=== PATIENT | male | born 1980 | race African-American/Black ===

== ENCOUNTER 2017-05-05 14:23 | Emergency (ER) | payer MEDICARE, MEDICAID ==
[2017-05-05] MEDS ORDERED: ONDANSETRON 4 MG TAB.RAPDIS SL ONE (14:46)
--- NOTE | 2017-05-05 14:46 | ER Document Report ---
ED Medical Screen (RME) - General Chief Complaint: Abdominal Pain Stated Complaint: ABDOMINAL PAIN Time Seen by Provider: 05/05/17 14:36 Mode of Arrival: Ambulatory Information source: Patient TRAVEL OUTSIDE OF THE [place] IN LAST 30 DAYS: No - HPI Patient complains to provider of: Abdominal pain with nausea and vomiting Onset: Yesterday Notes: 05/05/17 14:46 Patient is a 36-year-old male with a history of end-stage renal disease on dialysis since - Related Data Allergies/Adverse Reactions: No Known Allergies Allergy (Verified 05/05/17 14:33) Past Medical History - Past Medical History Cardiac Medical History: Reports: Hx Congestive Heart Failure Renal/ Medical History: Reports: Hx End Stage Renal Disease. Denies: Hx Peritoneal Dialysis Past Surgical History: Reports: Hx Cardiac Surgery - pacemaker, Hx Vascular Surgery - fistula Physical Exam - Vital signs Vitals: Temp Pulse Resp BP Pulse Ox 98.0 F 77 18 119/92 H 95 05/05/17 14:29 05/05/17 14:29 05/05/17 14:29 05/05/17 14:29 05/05/17 14:29 Course - Vital Signs Vital signs: Temp Pulse Resp BP Pulse Ox 98.0 F 77 18 119/92 H 95 05/05/17 14:29 05/05/17 14:29 05/05/17 14:29 05/05/17 14:29 05/05/17 14:29
[2017-05-05 15:29] LABS: ABSOLUTE BASOPHILS # (AUTO) 0.1 10^3/uL (0.0-0.2); ABSOLUTE EOSINOPHILS # (AUTO) 0.4 10^3/uL (0.0-0.6); ABSOLUTE LYMPHOCYTES (AUTO) 1.5 10^3/uL (0.5-4.7); ABSOLUTE NEUT (AUTO) 6.5 10^3/uL (1.7-8.2); BASOPHILS % (AUTO) 1.5 % (0-2); EOSINOPHILS % (AUTO) 4.4 % (0-6); HEMATOCRIT 36.6 % (37.9-51.0); HEMOGLOBIN 12.3 g/dL (13.5-17.0); HGB HCT DIFFERENCE 0.3; LYMPHOCYTES % (AUTO) 15.8 % (13-45); MEAN CORPUSCULAR HEMOGLOBIN 32.9 pg (27.0-33.4); MEAN CORPUSCULAR HGB CONC 33.7 g/dL (32.0-36.0); MEAN CORPUSCULAR VOLUME 98 fl (80-97); MONOCYTES % (AUTO) 10.2 % (3-13); RED BLOOD COUNT 3.75 10^6/uL (4.35-5.55); RED CELL DISTRIBUTION WIDTH 15.5 % (11.5-14.0); SEGMENTED NEUTROPHILS % (AUTO) 68.1 % (42-78); WHITE BLOOD COUNT 9.6 10^3/uL (4.0-10.5)
[2017-05-05 15:49] LABS: ALANINE AMINOTRANSFERASE 24 U/L (21-72); ALBUMIN 4.9 g/dL (3.5-5.0); ALKALINE PHOSPHATASE 72 U/L (38-126); ASPARTATE AMINO TRANSFERASE 21 U/L (17-59); BILIRUBIN,DIRECT 1.9 mg/dL (0.0-0.4); BILIRUBIN,TOTAL 1.9 mg/dL (0.2-1.3); BLOOD UREA NITROGEN 75 mg/dL (7-20); CALCIUM 8.6 mg/dL (8.4-10.2); CARBON DIOXIDE 27 mmol/L (22-30); CHLORIDE 91 mmol/L (98-107); CREATININE RESULT 12.52 mg/dL (0.52-1.25); GLUCOSE 60 mg/dL (75-110); LIPASE 93.8 U/L (23-300); POTASSIUM 5.3 mmol/L (3.6-5.0); TOTAL PROTEIN 8.7 g/dL (6.3-8.2)
[2017-05-05 15:57] LABS: SODIUM 141.1 mmol/L (137-145)
[2017-05-05 15:58] LABS: ANION GAP 23 (5-19)
[2017-05-05] MEDS ORDERED: PROMETHAZINE HCL 25 MG SUPP (4 SUPP/ER DISP) PR ONE (16:52)
--- NOTE | 2017-05-05 16:52 | ER Document Report ---
ED General - General Chief Complaint: Abdominal Pain Stated Complaint: ABDOMINAL PAIN Time Seen by Provider: 05/05/17 14:36 Mode of Arrival: Ambulatory TRAVEL OUTSIDE OF THE [place] IN LAST 30 DAYS: No - Related Data Allergies/Adverse Reactions: No Known Allergies Allergy (Verified 05/05/17 14:33) Past Medical History - General Information source: Patient - Social History Smoking Status: Never Smoker Chew tobacco use (# tins/day): No Frequency of alcohol use: None Drug Abuse: None Family History: Reviewed & Not Pertinent - Past Medical History Cardiac Medical History: Reports: Hx Congestive Heart Failure Endocrine Medical History: Reports: Hx Diabetes Mellitus Type 1 Renal/ Medical History: Reports: Hx End Stage Renal Disease. Denies: Hx Peritoneal Dialysis Past Surgical History: Reports: Hx Cardiac Surgery - pacemaker, Hx Vascular Surgery - fistula Physical Exam - Vital signs Vitals: Temp Pulse Resp BP Pulse Ox 98.0 F 77 18 119/92 H 95 05/05/17 14:29 05/05/17 14:29 05/05/17 14:29 05/05/17 14:29 05/05/17 14:29 Course - Vital Signs Vital signs: Temp Pulse Resp BP Pulse Ox 98.0 F 77 18 119/92 H 95 05/05/17 14:29 05/05/17 14:29 05/05/17 14:29 05/05/17 14:29 05/05/17 14:29 - Laboratory Result Diagrams: 05/05/17 15:10 05/05/17 15:10 Laboratory results interpreted by me: 05/05/17 05/05/17 15:10 15:10 RBC 3.75 L Hgb 12.3 L Hct 36.6 L MCV 98 H RDW 15.5 H Potassium 5.3 H Chloride 91 L Anion Gap 23 H BUN 75 H Creatinine 12.52 H Est GFR ( Amer) 6 L Est GFR (Non-Af Amer) 5 L Glucose 60 L Total Bilirubin 1.9 H Direct Bilirubin 1.9 H Total Protein 8.7 H Discharge - Discharge Clinical Impression: Nausea & vomiting Condition: Good Disposition: HOME, SELF-CARE Instructions: Vomiting ([facility]) Additional Instructions: Please continue to stay well hydrated. Take medication as prescribed. Return to the ER if you develop fevers or worsening of symptoms. Prescriptions: Promethazine HCl [Phenergan 25 mg Tablet] 1 - 2 tab PO Q6H PRN #20 tablet PRN Reason:
[2017-05-05 17:15] VITALS: BP 140/95
== END 2017-05-05 17:14 | disposition home or self-care (01) ==
LOC: ER 14:23
DX: R11.2 Nausea with vomiting, unspecified (principal); R10.9 Unspecified abdominal pain
CPT/HCPCS: 99284; 36415; 83690; 85025; 80053; A9270 ×2; J3490; S0119

== ENCOUNTER 2017-09-14 22:48 | Emergency (ER) | payer MEDICARE, MEDICAID ==
[2017-09-15] MEDS ORDERED: HYDROCODONE/ACETAMINOPHEN 5-325 MG TABLET PO ONE (00:17)
[2017-09-15] MEDS ORDERED: PROMETHAZINE HCL 25 MG TABLET PO ONE (00:17)
--- NOTE | 2017-09-15 00:20 | ER Document Report ---
ED General - General Chief Complaint: Flu Symptoms Stated Complaint: FLU LIKE SYMPTOMS Time Seen by Provider: 09/15/17 00:04 Notes: Patient is a 36-year-old male that comes emergency department for chief complaint of pain across the side of his ribs on both sides, occasional cough, some congestion, he also states that he is intermittently getting lightheaded. He reports chills and sweats today. He states he was standing in the shower this morning when he had lightheadedness and a discomfort in his chest which passed after a short time. Past medical history of end-stage renal disease, had dialysis yesterday, type 1 diabetes, hypertension. TRAVEL OUTSIDE OF THE [place] IN LAST 30 DAYS: No - Related Data Allergies/Adverse Reactions: No Known Allergies Allergy (Verified 05/05/17 14:33) Past Medical History - General Information source: Patient - Social History Smoking Status: Never Smoker Frequency of alcohol use: None Drug Abuse: None Lives with: Family Family History: Reviewed & Not Pertinent - Past Medical History Cardiac Medical History: Reports: Hx Congestive Heart Failure Endocrine Medical History: Reports: Hx Diabetes Mellitus Type 1 Renal/ Medical History: Reports: Hx End Stage Renal Disease. Denies: Hx Peritoneal Dialysis Past Surgical History: Reports: Hx Cardiac Surgery - pacemaker, Hx Vascular Surgery - fistula Review of Systems - Review of Systems Constitutional: See HPI EENT: See HPI Cardiovascular: See HPI Respiratory: See HPI Gastrointestinal: No symptoms reported Genitourinary: No symptoms reported Male Genitourinary: No symptoms reported Musculoskeletal: See HPI Skin: No symptoms reported Hematologic/Lymphatic: No symptoms reported Neurological/Psychological: No symptoms reported Physical Exam - Vital signs Vitals: Temp Pulse Resp BP Pulse Ox 97.7 F 85 20 159/94 H 96 09/14/17 23:10 09/14/17 23:10 09/14/17 23:10 09/14/17 23:10 09/14/17 23:10 Interpretation: Normal - General General appearance: Alert, Other - Patient restless, coughing, uncomfortable - HEENT Head: Normocephalic, Atraumatic Eyes: Normal Pupils: PERRL - Respiratory Respiratory status: No respiratory distress. No: Labored, Tachypnea Chest status: Tender - Tender over anterior chest wall bilaterally, no crepitus , no erythema, no induration or fluctuance Breath sounds: Normal, Nonproductive cough. No: Decreased air movement, Wheezing Chest palpation: Normal - Cardiovascular Rhythm: Regular. No: Tachycardia Heart sounds: Normal auscultation, S1 appreciated, S2 appreciated Murmur: No - Abdominal Inspection: Normal Distension: No distension Bowel sounds: Normal Tenderness: Nontender Organomegaly: No organomegaly - Back Back: Normal, Nontender. No: Tender - Extremities General upper extremity: Normal inspection, Nontender, Normal color, Normal ROM , Normal temperature. No: Edema General lower extremity: Normal inspection, Nontender, Normal color, Normal ROM , Normal temperature, Normal weight bearing. 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 Chemistry is consistent with his chronic kidney disease and essentially unchanged from prior although he does have a lot of uremia. On reexamination after medications patient asymptomatic and well-appearing. Chest x-ray unremarkable, no pneumonia , no vascular congestion. EKG with no significant change from prior. Troponin is negative despite his chest pain symptoms in the shower happening about 10 hours ago. This was short and nonspecific. Now his only complaint is pain over his chest wall, he does have reproducible pain over his chest wall bilaterally, coughing, congestion, he most likely has a virus. He states he is coughing and cannot sleep, he is provided medications for this, discussed follow -up and return precautions in detail, patient and significant other state understanding and agreement. - Vital Signs Vital signs: Temp Pulse Resp BP Pulse Ox 97.6 F 82 19 141/92 H 96 09/15/17 02:10 09/15/17 02:10 09/15/17 02:10 09/15/17 02:10 09/15/17 02:10 - Laboratory Result Diagrams: 09/15/17 00:25 09/15/17 00:25 Laboratory results interpreted by me: 09/15/17 09/15/17 00:25 00:25 RBC 3.93 L Hgb 12.5 L Hct 37.4 L RDW 14.5 H Eosinophils % 6.1 H Basophils % 2.1 H Sodium 136.9 L Potassium 5.3 H Chloride 92 L Anion Gap 23 H BUN 106 H Creatinine 17.60 H Est GFR ( Amer) 4 L Est GFR (Non-Af Amer) 3 L Glucose 209 H Calcium 7.6 L Total Bilirubin 1.5 H Direct Bilirubin 1.5 H Total Protein 9.0 H Discharge - Discharge Clinical Impression: Body aches, Chest wall pain Condition: Stable Disposition: HOME, SELF-CARE Additional Instructions: No concerning abnormalities were seen on your workup tonight. Based on your variety of symptoms I suspect this is viral, this should pass with time. Rest, take provided medication only if needed, take Phenergan if needed for nausea and to help you rest. Follow-up closely with your provider. Return if you worsen including difficulty breathing, vomiting, or any other concerning symptoms. Prescriptions: Hydrocodone/Acetaminophen [[place] 5-325 mg Tablet] 1 - 2 tab PO ASDIR #6 tablet Promethazine HCl [Phenergan 25 mg Tablet] 1 - 2 tab PO Q6H PRN #15 tablet PRN Reason:
[2017-09-15 00:52] LABS: ABSOLUTE BASOPHILS # (AUTO) 0.2 10^3/uL (0.0-0.2); ABSOLUTE EOSINOPHILS # (AUTO) 0.5 10^3/uL (0.0-0.6); ABSOLUTE LYMPHOCYTES (AUTO) 1.5 10^3/uL (0.5-4.7); ABSOLUTE NEUT (AUTO) 5.2 10^3/uL (1.7-8.2); BASOPHILS % (AUTO) 2.1 % (0-2); EOSINOPHILS % (AUTO) 6.1 % (0-6); HEMATOCRIT 37.4 % (37.9-51.0); HEMOGLOBIN 12.5 g/dL (13.5-17.0); LYMPHOCYTES % (AUTO) 17.7 % (13-45); MEAN CORPUSCULAR HEMOGLOBIN 31.8 pg (27.0-33.4); MEAN CORPUSCULAR HGB CONC 33.5 g/dL (32.0-36.0); MEAN CORPUSCULAR VOLUME 95 fl (80-97); MONOCYTES % (AUTO) 11.6 % (3-13); PLATELET COUNT 301 10^3/uL (150-450); RED BLOOD COUNT 3.93 10^6/uL (4.35-5.55); RED CELL DISTRIBUTION WIDTH 14.5 % (11.5-14.0); SEGMENTED NEUTROPHILS % (AUTO) 62.5 % (42-78); TOTAL CELLS COUNTED % (AUTO) 100 %; WHITE BLOOD COUNT 8.3 10^3/uL (4.0-10.5)
[2017-09-15 00:55] LABS: ALANINE AMINOTRANSFERASE 22 U/L (21-72); ALKALINE PHOSPHATASE 65 U/L (38-126); ASPARTATE AMINO TRANSFERASE 39 U/L (17-59); BILIRUBIN,DIRECT 1.5 mg/dL (0.0-0.4); BILIRUBIN,TOTAL 1.5 mg/dL (0.2-1.3); BLOOD UREA NITROGEN 106 mg/dL (7-20); CALCIUM 7.6 mg/dL (8.4-10.2); GLUCOSE 209 mg/dL (75-110)
--- NOTE | 2017-09-15 01:10 | RADIOLOGY REPORT (SQ) ---
EXAM DESCRIPTION: CHEST PA/LAT CLINICAL HISTORY: 36 years, Male, cough, pain over both sides of chest COMPARISON: 04/07/2016 NUMBER OF VIEWS: 2 LIMITATIONS: None. FINDINGS: Normal lung volumes, clear parenchyma, mild cardiac enlargement, left cardiac stimulation device and leads. IMPRESSION: No acute cardiopulmonary findings. Stable mild cardiac enlargement.
[2017-09-15 01:11] LABS: A TYPE INFLUENZA AG NEGATIVE (NEGATIVE); B INFLUENZA AG NEGATIVE (NEGATIVE)
[2017-09-15 01:26] LABS: CARBON DIOXIDE 22 mmol/L (22-30); CHLORIDE 92 mmol/L (98-107); POTASSIUM 5.3 mmol/L (3.6-5.0); SODIUM 136.9 mmol/L (137-145)
[2017-09-15 01:27] LABS: ANION GAP 23 (5-19)
[2017-09-15] MEDS ORDERED: HYDROCODONE/ACETAMINOPHEN 5-325 MG (6 TAB/ER DISP) PO PRN (01:59)
[2017-09-15 02:13] VITALS: BP 141/92
--- NOTE | 2017-09-15 08:51 | EKG REPORT ---
SEVERITY:- ABNORMAL ECG - SINUS RHYTHM PROBABLE LEFT ATRIAL ABNORMALITY NONSPECIFIC INTRAVENTRICULAR CONDUCTION DELAY : Confirmed by: Brandy Zaldivar 15-Sep-2017 08:50:31
== END 2017-09-15 02:14 | disposition home or self-care (01) ==
LOC: ER 22:48
DX: M79.1 Myalgia (principal); R07.89 Other chest pain; R05 Cough; I50.9 Heart failure, unspecified; E10.22 Type 1 diabetes mellitus with diabetic chronic kidney disease; N18.6 End stage renal disease; Z95.0 Presence of cardiac pacemaker
CPT/HCPCS: 93005; 99284; 36415; 85025; 80053; 84484; 87804; 71046; 93010; A9270 ×3

== ENCOUNTER 2017-10-06 15:26 | Emergency (ER) | payer MEDICARE, MEDICAID ==
[2017-10-06] MEDS ORDERED: HYDROCODONE/ACETAMINOPHEN 5-325 MG TABLET PO ONE (17:40)
[2017-10-06] MEDS ORDERED: ONDANSETRON 4 MG TAB.RAPDIS PO ONE (17:40)
--- NOTE | 2017-10-06 17:41 | ER Document Report ---
ED Medical Screen (RME) - General Chief Complaint: Flank Pain Stated Complaint: NAUSEA, VOMITING Time Seen by Provider: 10/06/17 17:39 Mode of Arrival: Ambulatory Information source: Patient Notes: Patient presents complaining of right flank pain for the past 3 days. Patient reports hematuria with nausea and vomiting. Patient denies any fever. Patient denies any history kidney stones. hx: CHF, insulin-dependent diabetes, hypertension, in home hemodialysis 4 times a week I have greeted and performed a rapid initial assessment of this patient. A comprehensive ED assessment and evaluation of the patient, analysis of test results and completion of the medical decision making process will be conducted by additional ED providers. TRAVEL OUTSIDE OF THE [place] IN LAST 30 DAYS: No - Related Data Allergies/Adverse Reactions: No Known Allergies Allergy (Verified 10/06/17 15:53) Past Medical History - Past Medical History Cardiac Medical History: Reports: Hx Congestive Heart Failure Endocrine Medical History: Reports: Hx Diabetes Mellitus Type 1 Renal/ Medical History: Reports: Hx End Stage Renal Disease. Denies: Hx Peritoneal Dialysis Past Surgical History: Reports: Hx Cardiac Surgery - pacemaker, Hx Vascular Surgery - fistula Physical Exam - Vital signs Vitals: Temp Pulse Resp BP Pulse Ox 98.2 F 97 16 175/100 H 96 10/06/17 15:55 10/06/17 15:55 10/06/17 15:55 10/06/17 15:55 10/06/17 15:55 - Back Back: CVA tenderness - Right Course - Vital Signs Vital signs: Temp Pulse Resp BP Pulse Ox 98.2 F 97 16 175/100 H 96 10/06/17 15:55 10/06/17 15:55 10/06/17 15:55 10/06/17 15:55 10/06/17 15:55
[2017-10-06 19:18] LABS: ABSOLUTE BASOPHILS # (AUTO) 0.1 10^3/uL (0.0-0.2); ABSOLUTE EOSINOPHILS # (AUTO) 0.4 10^3/uL (0.0-0.6); ABSOLUTE LYMPHOCYTES (AUTO) 1.9 10^3/uL (0.5-4.7); ABSOLUTE MONOCYTES (AUTO) 0.8 10^3/uL (0.1-1.4); ABSOLUTE NEUT (AUTO) 6.4 10^3/uL (1.7-8.2); BASOPHILS % (AUTO) 1.2 % (0-2); EOSINOPHILS % (AUTO) 4.3 % (0-6); HEMATOCRIT 33.9 % (37.9-51.0); HEMOGLOBIN 11.6 g/dL (13.5-17.0); LYMPHOCYTES % (AUTO) 19.3 % (13-45); MEAN CORPUSCULAR HEMOGLOBIN 32.2 pg (27.0-33.4); MEAN CORPUSCULAR HGB CONC 34.2 g/dL (32.0-36.0); MEAN CORPUSCULAR VOLUME 94 fl (80-97); MONOCYTES % (AUTO) 8.2 % (3-13); PLATELET COUNT 286 10^3/uL (150-450); RED CELL DISTRIBUTION WIDTH 14.5 % (11.5-14.0); TOTAL CELLS COUNTED % (AUTO) 100 %; WHITE BLOOD COUNT 9.6 10^3/uL (4.0-10.5)
--- NOTE | 2017-10-06 19:23 | RADIOLOGY REPORT (SQ) ---
EXAM DESCRIPTION: CT LTD RENAL STONE PROTOCOL ON COMPLETED DATE/TIME: 10/06/2017 7:08 pm REASON FOR STUDY: r flank/side pain COMPARISON: None. TECHNIQUE: CT scan of the abdomen and pelvis performed without intravenous or oral contrast. Images reviewed with lung, soft tissue, and bone windows. Reconstructed coronal and sagittal MPR images revi ewed. All images stored on PACS. All CT scanners at this facility use dose modulation, iterative reconstruction, and/or weight based d osing when appropriate to reduce radiation dose to as low as reasonably achievable (ALARA). [facility]: Dose Right [facility]: CareDose [facility]: Dose Right [facility]: Teradose 4D [facility]: [employer] RADIATION DOSE: CT Rad equipment meets quality standard of care and radiation dose reduction techniq ues were employed. CTDIvol: 17.2 mGy. DLP: 1011 mGy-cm.mGy. LIMITATIONS: None. FINDINGS: LOWER CHEST: No significant findings. No nodules or infiltrates. NON-CONTRASTED LIVER, SPLEEN, ADRENALS: Evaluation limited by lack of IV contrast. No identified sign ificant masses. PANCREAS: No masses. No peripancreatic inflammatory changes. GALLBLADDER: No identified stones by CT criteria. No inflammatory changes to suggest cholecystitis. RIGHT KIDNEY AND URETER: No suspicious masses. Assessment limited by lack of IV contrast. No signif icant calcifications. No hydronephrosis or hydroureter. LEFT KIDNEY AND URETER: No suspicious masses. Assessment limited by lack of IV contrast. No signifi cant calcifications. No hydronephrosis or hydroureter. AORTA AND RETROPERITONEUM: No aneurysm. No retroperitoneal masses or adenopathy. BOWEL AND PERITONEAL CAVITY: No obvious masses or inflammatory changes. No free fluid. APPENDIX: Normal. PELVIS, BLADDER, AND ABDOMINAL WALL:No abnormal masses. No free fluid. Bladder normal. BONES: No significant findings. OTHER: No other significant finding. IMPRESSION: NO SIGNIFICANT OR ACUTE PROCESS IDENTIFIED ON THIS NONCONTRAST CT OF THE ABDOMEN AND PEL VIS. NO URINARY TRACT STONES OR HYDRONEPHROSIS. COMMENT: Quality ID # [id number]: Final reports with documentation of one or more dose reduction techniques (e.g., Automated exposure control, adjustment of the mA and/or kV according to patient size, use of iterative reconstruction technique) TECHNICAL DOCUMENTATION: JOB ID: [id number] [email or web address]- All Rights Reserved
[2017-10-06 19:38] LABS: ALANINE AMINOTRANSFERASE 31 U/L (21-72); ALBUMIN 4.7 g/dL (3.5-5.0); ALKALINE PHOSPHATASE 56 U/L (38-126); ANION GAP 18 (5-19); ASPARTATE AMINO TRANSFERASE 26 U/L (17-59); BILIRUBIN,DIRECT 1.4 mg/dL (0.0-0.4); BILIRUBIN,TOTAL 1.4 mg/dL (0.2-1.3); BLOOD UREA NITROGEN 64 mg/dL (7-20); CARBON DIOXIDE 31 mmol/L (22-30); CHLORIDE 91 mmol/L (98-107); GLUCOSE 140 mg/dL (75-110); LIPASE 107.6 U/L (23-300); POTASSIUM 3.8 mmol/L (3.6-5.0); TOTAL PROTEIN 8.4 g/dL (6.3-8.2)
[2017-10-06 19:40] LABS: AMORPHOUS SEDIMENT,URINE TRACE /HPF; APPEARANCE,URINE CLOUDY; BILIRUBIN,URINE NEGATIVE (NEGATIVE); COLOR,URINE YELLOW; GLUCOSE, URINE 50 mg/dL (NEGATIVE); KETONES,URINE NEGATIVE (NEGATIVE); LEUKOCYTE ESTERASE,URINE SMALL (NEGATIVE); NITRITE,URINE NEGATIVE (NEGATIVE); PROTEIN,URINE >=500 mg/dL (NEGATIVE); UROBILINOGEN,URINE NEGATIVE mg/dL (<2.0)
[2017-10-06] MEDS ORDERED: LIDOCAINE 1% INJ-PF (10 MG/ML) 30 ML SDV INFIL ONE (22:16)
[2017-10-06] MEDS ORDERED: CEFTRIAXONE INJ 500 MG VIAL IM ONE (22:16)
[2017-10-06] MEDS ORDERED: ONDANSETRON ODT 4 MG TAB (6 TAB/ER DISP) PO PRN (22:18)
--- NOTE | 2017-10-06 22:21 | ER Document Report ---
ED General - General Chief Complaint: Flank Pain Stated Complaint: NAUSEA, VOMITING Time Seen by Provider: 10/06/17 17:39 Mode of Arrival: Ambulatory Notes: Patient is a 36-year-old male who presents with complaint of some pain in his right flank some dysuria. Patient has a history of end-stage renal disease and does home dialysis. No fevers. Some nausea. some vomiting. No diarrhea. No other complaints at this time. TRAVEL OUTSIDE OF THE [place] IN LAST 30 DAYS: No - Related Data Allergies/Adverse Reactions: No Known Allergies Allergy (Verified 10/06/17 15:53) Past Medical History - General Information source: Patient - Social History Smoking Status: Never Smoker Chew tobacco use (# tins/day): No Frequency of alcohol use: Rare Drug Abuse: None Family History: Reviewed & Not Pertinent Patient has suicidal ideation: No Patient has homicidal ideation: No - Past Medical History Cardiac Medical History: Reports: Hx Congestive Heart Failure Endocrine Medical History: Reports: Hx Diabetes Mellitus Type 1 Renal/ Medical History: Reports: Hx End Stage Renal Disease, Hx Peritoneal Dialysis Past Surgical History: Reports: Hx Cardiac Surgery - pacemaker, Hx Vascular Surgery - fistula Review of Systems - Review of Systems Notes: My Normal Review Basic REVIEW OF SYSTEMS: CONSTITUTIONAL : Denies fever, chills, or sweats. Denies recent illness. RESPIRATORY: Denies cough, cold, or chest congestion. Denies shortness of breath, difficulty breathing, or wheezing. GASTROINTESTINAL: mild pain on the right side rating from back. GENITOURINARY: Right-sided flank and back pain. MUSCULOSKELETAL: Denies neck or back pain or joint pain or swelling. SKIN: Denies rash or skin lesions. NEUROLOGICAL: Denies altered mental status or loss of consciousness. Denies headache. Denies weakness or paralysis or loss of use of either side. Denies problems with gait or speech. Denies sensory or motor loss. ALL OTHER SYSTEMS REVIEWED AND NEGATIVE. Physical Exam - Vital signs Vitals: Temp Pulse Resp BP Pulse Ox 98.2 F 97 16 175/100 H 96 10/06/17 15:55 10/06/17 15:55 10/06/17 15:55 10/06/17 15:55 10/06/17 15:55 - Notes Notes: General Appearance: Well nourished, alert, cooperative, no acute distress, mild obvious discomfort. Vitals: reviewed, See vital signs table. Head: no swelling or tenderness to the head Eyes: PERRL, EOMI, Conjuctiva clear Mouth: No decreasd moisture Lungs: No wheezing, No rales, No rhonci, No accessory muscle use, good air exchange bilaterally. Heart: Normal rate, Regular rythm, No murmur, no rub Back: Some tenderness palpation over the lower back and right flank. Abdomen: Normal BS, soft, No rigidity, No abdominal tenderness, No guarding, no rebound, Extremities: strength 5/5 in all extremities, good pulses in all extremities, no swelling or tenderness in the extremities, no edema. Skin: warm, dry, appropriate color, no rash Neuro: speech clear, oriented x 3, normal affect, responds appropriately to questions. Course - Re-evaluation Re-evalutation: 10/07/17 07:20 Skin was ordered in triage. Is negative for kidney stone. Patient does have improved for urinary tract infection. I will place him on antibiotic. Encourage him return to ER immediately if he has worsening pain, fevers, intractable vomiting, or if he feels unwell. Patient agrees with plan will be discharged home. Dictation of this chart was performed using voice recognition software; therefore, there may be some unintended grammatical errors. - Vital Signs Vital signs: Temp Pulse Resp BP Pulse Ox 98.7 F 97 18 166/83 H 98 10/06/17 23:17 10/06/17 15:55 10/06/17 23:17 10/06/17 22:31 10/06/17 23:09 - Laboratory Result Diagrams: 10/06/17 18:59 10/06/17 18:59 Laboratory results interpreted by me: 10/06/17 10/06/17 10/06/17 18:59 18:59 18:59 RBC 3.60 L Hgb 11.6 L Hct 33.9 L RDW 14.5 H Chloride 91 L Carbon Dioxide 31 H BUN 64 H Creatinine 11.28 H Est GFR ( Amer) 6 L Est GFR (Non-Af Amer) 5 L Glucose 140 H Total Bilirubin 1.4 H Direct Bilirubin 1.4 H Total Protein 8.4 H Urine Protein >=500 H Urine Glucose (UA) 50 H Urine Blood MODERATE H Ur Leukocyte Esterase SMALL H Discharge - Discharge Clinical Impression: End stage renal disease UTI (urinary tract infection) Qualifiers: Urinary tract infection type: site unspecified Hematuria presence: with hematuria Qualified Code(s): N39.0 - Urinary tract infection, site not specified Condition: Good Disposition: HOME-SNF (ED ONLY) Additional Instructions: Please take your antibiotic after dialysis. Please return to the ER immediately if you have fevers, worsening pain, recurrent vomiting, or feel unwell. Please follow up with your doctor in 2 days for reevaluation. Prescriptions: Cephalexin Monohydrate [Keflex 500 mg Capsule] 500 mg PO DAILY #7 capsule
[2017-10-06 23:01] VITALS: BP 166/83
== END 2017-10-06 23:44 ==
LOC: ER 15:26
DX: N18.6 End stage renal disease (principal); N39.0 Urinary tract infection, site not specified; R10.9 Unspecified abdominal pain; R11.2 Nausea with vomiting, unspecified; R30.0 Dysuria
CPT/HCPCS: 99284; 96372; 36415; 87086; 83690; 85025; 80053; 81001; 76380; A9270 ×3; J3490; J0696; S0119

== ENCOUNTER 2017-10-14 18:50 | Emergency (ER) | payer MEDICARE, MEDICAID ==
--- NOTE | 2017-10-14 19:39 | ER Document Report ---
ED General - General Mode of Arrival: Ambulatory Information source: Patient TRAVEL OUTSIDE OF THE [place] IN LAST 30 DAYS: No - General Chief Complaint: High Blood Pressure Stated Complaint: KIDNEY INFECTION Time Seen by Provider: 10/14/17 19:25 Notes: Patient presents with concern of high blood pressure. Patient's blood pressure was in the 200s over 100s today. Per further discussion he states his blood pressure has been running high for over last 2 weeks has been waxing and waning. He has not had any recent fevers or illnesses although he was treated for urinary tract infection and recently finished his antibiotics. He denies any symptoms of illness at this time. He denies any chest pain or shortness of breath. In triage his blood pressure systolic is noted to be in the 160s and he is asymptomatic. I had lengthy discussion with him that he may need medicine reconciliation as his blood pressure has been elevated over the last 2 weeks although he has doubled up on his Coreg daily per his sensitized paper tester team. I discussed that he may need further medicine reconciliation to better control his blood pressure and also discussed possibly using clonidine as abortive antihypertensive medication. He states that he use to use clonidine in the past but was taken off of it some time ago as it was bottoming his blood pressure when he did his home dialysis. I do not feel in need to prescribe any medications or bring patient in for hypertensive emergency as his blood pressure has normalized to an acceptable range w/o intervention and he has been having blood pressure much higher than this at the clinic as he stated his systolic was in the 190s on his last visit. He was instructed to contact his sensitized paper tester team tomorrow regarding his emergency medicine visit and need for medicine reconciliation regarding better management of his blood pressure. He understands and agrees to plan. Of note he showed me a sore where he he cut himself over a week ago posterior aspect of his lower extremity. He is well appearing but is not granulated due to daily use of Neosporin. I discussed to thoroughly clean it once a day but keep it dry so it can granulate and scab over. (ROMAN GUEVARA) - Related Data Allergies/Adverse Reactions: No Known Allergies Allergy (Verified 10/14/17 18:50) Past Medical History - General Information source: Patient - Social History Smoking Status: Never Smoker Chew tobacco use (# tins/day): No Frequency of alcohol use: None Drug Abuse: None Family History: Reviewed & Not Pertinent Patient has suicidal ideation: No Patient has homicidal ideation: No - Past Medical History Cardiac Medical History: Reports: Hx Congestive Heart Failure Endocrine Medical History: Reports: Hx Diabetes Mellitus Type 1 Renal/ Medical History: Reports: Hx End Stage Renal Disease, Hx Peritoneal Dialysis Past Surgical History: Reports: Hx Cardiac Surgery - pacemaker, Hx Vascular Surgery - fistula Review of Systems - Review of Systems Constitutional: See HPI EENT: No symptoms reported Cardiovascular: No symptoms reported Respiratory: No symptoms reported Gastrointestinal: No symptoms reported Genitourinary: No symptoms reported Male Genitourinary: No symptoms reported Musculoskeletal: No symptoms reported Skin: No symptoms reported Hematologic/Lymphatic: No symptoms reported Neurological/Psychological: No symptoms reported -: Yes All other systems reviewed and negative Physical Exam - Vital signs Vitals: Temp Pulse Resp BP Pulse Ox 98.1 F 84 16 167/91 H 96 10/14/17 18:53 10/14/17 18:53 10/14/17 18:53 10/14/17 18:53 10/14/17 18:53 - Notes Notes: GENERAL: Alert, interacts well. No acute distress. HEAD: Normocephalic, atraumatic. EYES: Pupils equal, round, and reactive to light. Extraocular movements intact. ENT: Oral mucosa moist, tongue midline. NECK: Full range of motion. Supple. Trachea midline. EXTREMITIES: Moves all 4 extremities spontaneously. NEUROLOGICAL: Alert and oriented x3. Normal speech. PSYCH: Normal affect, normal mood. SKIN: well healing wound on the right heel. (JANIYA EID) - Vital Signs Vital signs: Temp Pulse Resp BP Pulse Ox 97.9 F 79 18 189/98 H 100 10/14/17 19:50 10/14/17 19:50 10/14/17 19:50 10/14/17 19:50 10/14/17 19:50 Discharge - Discharge Clinical Impression: Encounter for wound re-check Hypertension Qualifiers: Hypertension type: unspecified Qualified Code(s): I10 - Essential (primary) hypertension Condition: Stable Disposition: HOME, SELF-CARE Additional Instructions: Please follow up with your sensitized paper tester and continue to take your medications as per discussion. If you have any new or worsening symptoms please return to the emergency department. Scribe Attestation: 10/16/17 03:43 I personally performed the services described documentation, reviewed and edited the documentation which was dictated to describe my presence, and it accurately records my words and actions. (ROMAN GUEVARA) Scribe Documentation - Scribe Written by Luis:: Luis Eason, 10/14/2017 19:47 acting as scribe for :: Eddy
[2017-10-14 19:51] VITALS: BP 189/98
== END 2017-10-14 19:51 | disposition home or self-care (01) ==
LOC: ER 18:50
DX: I12.0 Hypertensive chronic kidney disease with stage 5 chronic kidney disease or end stage renal disease (principal); S91.311A Laceration without foreign body, right foot, initial encounter; X58.XXXA Exposure to other specified factors, initial encounter; E10.22 Type 1 diabetes mellitus with diabetic chronic kidney disease; N18.6 End stage renal disease; Z99.2 Dependence on renal dialysis
CPT/HCPCS: 99283

== ENCOUNTER 2018-01-17 17:04 | Emergency (ER) | payer MEDICARE, MEDICAID ==
[2018-01-17] MEDS ORDERED: DIAZEPAM 5 MG TABLET PO ONE (17:21)
[2018-01-17] MEDS ORDERED: KETOROLAC TROMETHAMINE 60 MG/2 ML SDV IM ONE (17:21)
--- NOTE | 2018-01-17 17:23 | ER Document Report ---
ED Medical Screen (RME) - General Chief Complaint: Flank Pain Stated Complaint: BACK PAIN Time Seen by Provider: 01/17/18 17:16 Notes: RAPID MEDICAL EVALUATION DISCLOSURE I have seen this patient as part of a Rapid Medical Evaluation and, if applicable, placed any initially appropriate orders. The patient will be seen and fully evaluated, including a full history and physical exam, by a provider ( in Main ED or Fast Track) when a room becomes available. 37-year-old male PMH pyelonephritis here with complaints of right lower back pain (radiating down the buttock) ongoing for the past few days. The day before onset of symptoms, he was walking in the store and rounded a corner then felt "a pop in my back". The next day is when the symptoms started. He has not had any fevers chills nausea vomiting hematuria dysuria. He went to the urgent care and they sent him here due to concern for possible kidney stones. Patient has never had kidney stones in the past. Exam Exquisite TTP right paralumbar musculature No abdominal TTP TRAVEL OUTSIDE OF THE [place] IN LAST 30 DAYS: No - Related Data Allergies/Adverse Reactions: No Known Allergies Allergy (Verified 01/17/18 17:05) Past Medical History - Social History Chew tobacco use (# tins/day): No Frequency of alcohol use: None Drug Abuse: None - Past Medical History Cardiac Medical History: Reports: Hx Congestive Heart Failure Endocrine Medical History: Reports: Hx Diabetes Mellitus Type 1 Renal/ Medical History: Reports: Hx End Stage Renal Disease. Denies: Hx Peritoneal Dialysis Past Surgical History: Reports: Hx Cardiac Surgery - pacemaker, Hx Thyroid Surgery - Partial thyroidectomy, Hx Vascular Surgery - fistula Physical Exam - Vital signs Vitals: Temp Pulse Resp BP Pulse Ox 97.8 F 78 16 159/83 H 100 01/17/18 17:09 01/17/18 17:09 01/17/18 17:09 01/17/18 17:09 01/17/18 17:09 Course - Vital Signs Vital signs: Temp Pulse Resp BP Pulse Ox 97.8 F 78 16 159/83 H 100 01/17/18 17:09 01/17/18 17:09 01/17/18 17:09 01/17/18 17:09 01/17/18 17:09
[2018-01-17 18:34] LABS: ABSOLUTE BASOPHILS # (AUTO) 0.1 10^3/uL (0.0-0.2); ABSOLUTE EOSINOPHILS # (AUTO) 0.7 10^3/uL (0.0-0.6); ABSOLUTE LYMPHOCYTES (AUTO) 2.2 10^3/uL (0.5-4.7); ABSOLUTE MONOCYTES (AUTO) 0.7 10^3/uL (0.1-1.4); ABSOLUTE NEUT (AUTO) 5.1 10^3/uL (1.7-8.2); BASOPHILS % (AUTO) 1.5 % (0-2); EOSINOPHILS % (AUTO) 7.7 % (0-6); HEMATOCRIT 34.5 % (37.9-51.0); HEMOGLOBIN 11.7 g/dL (13.5-17.0); LYMPHOCYTES % (AUTO) 25.1 % (13-45); MEAN CORPUSCULAR HEMOGLOBIN 33.5 pg (27.0-33.4); MEAN CORPUSCULAR HGB CONC 33.9 g/dL (32.0-36.0); MEAN CORPUSCULAR VOLUME 99 fl (80-97); PLATELET COUNT 272 10^3/uL (150-450); RED BLOOD COUNT 3.49 10^6/uL (4.35-5.55); RED CELL DISTRIBUTION WIDTH 14.8 % (11.5-14.0); SEGMENTED NEUTROPHILS % (AUTO) 57.7 % (42-78); TOTAL CELLS COUNTED % (AUTO) 100 %; WHITE BLOOD COUNT 8.8 10^3/uL (4.0-10.5)
[2018-01-17 18:51] LABS: APPEARANCE,URINE CLOUDY; BILIRUBIN,URINE NEGATIVE (NEGATIVE); COLOR,URINE YELLOW; GLUCOSE, URINE 150 mg/dL (NEGATIVE); KETONES,URINE NEGATIVE (NEGATIVE); LEUKOCYTE ESTERASE,URINE TRACE (NEGATIVE); NITRITE,URINE NEGATIVE (NEGATIVE); PROTEIN,URINE >=500 mg/dL (NEGATIVE); URINE SPECIFIC GRAVITY 1.026; UROBILINOGEN,URINE NEGATIVE mg/dL (<2.0)
[2018-01-17 18:56] LABS: ALANINE AMINOTRANSFERASE 34 U/L (21-72); ALBUMIN 4.5 g/dL (3.5-5.0); ALKALINE PHOSPHATASE 69 U/L (38-126); ASPARTATE AMINO TRANSFERASE 35 U/L (17-59); BILIRUBIN,DIRECT 0.5 mg/dL (0.0-0.4); BILIRUBIN,TOTAL 0.5 mg/dL (0.2-1.3); BLOOD UREA NITROGEN 84 mg/dL (7-20); CALCIUM 8.7 mg/dL (8.4-10.2); GLUCOSE 114 mg/dL (75-110); LIPASE 176.4 U/L (23-300); POTASSIUM 4.7 mmol/L (3.6-5.0); TOTAL PROTEIN 7.9 g/dL (6.3-8.2)
[2018-01-17 19:02] LABS: CARBON DIOXIDE 27 mmol/L (22-30); CHLORIDE 96 mmol/L (98-107); SODIUM 143.8 mmol/L (137-145)
[2018-01-17 19:04] LABS: ANION GAP 21 (5-19)
--- NOTE | 2018-01-17 19:18 | RADIOLOGY REPORT (SQ) ---
EXAM DESCRIPTION: L SPINE WHOLE COMPLETED DATE/TIME: 01/17/2018 7:00 pm REASON FOR STUDY: R lower back pain, felt a pop COMPARISON: None. NUMBER OF VIEWS: Five views including obliques. TECHNIQUE: AP, lateral, oblique, and sacral radiographic images acquired of the lumbar spine. LIMITATIONS: None. FINDINGS: MINERALIZATION: Normal. SEGMENTATION: Normal. No transitional anatomy. ALIGNMENT: Normal. VERTEBRAE: Maintained height. No fracture or worrisome bone lesion. DISCS: Preserved height. No significant osteophytes or end plate irregularity. POSTERIOR ELEMENTS: Pedicles and facets are intact. No pars defect or posterior arch defects. HARDWARE: None in the spine. PARASPINAL SOFT TISSUES: Normal. PELVIS: Intact as visualized. No fractures or worrisome bone lesions. SI joints intact. OTHER: No other significant finding. IMPRESSION: NORMAL 5 VIEW LUMBAR SPINE. TECHNICAL DOCUMENTATION: JOB ID: [id number] [employer]- All Rights Reserved Reading location - IP/workstation name: [email or web address]
[2018-01-17] MEDS ORDERED: DIAZEPAM INJ 10 MG/2 ML DISP.SYRIN IV ONE (19:20)
[2018-01-17] MEDS ORDERED: KETOROLAC TROMETHAMINE INJ/PF 30 MG/1 ML SDV IV ONE (19:20)
--- NOTE | 2018-01-17 19:47 | ER Document Report ---
ED GI/ - General Chief Complaint: Flank Pain Stated Complaint: BACK PAIN Time Seen by Provider: 01/17/18 17:16 Mode of Arrival: Ambulatory Information source: Patient Notes: 37-year-old male presents with chief complaint of right flank pain. Patient reports that while he was out shopping on Friday he felt a pop in his right lower back. Patient reports that the flank pain started the next day. Patient denies any fever, chills, nausea, vomiting. Patient denies any hematuria or dysuria. Patient reports that he has taken tramadol and cyclobenzaprine at home without relief. Patient states that he tried to go to the urgent care today however they sent him here as he was concerned that he may have a kidney stone. Patient has no history of any kidney stones. Patient does have past medical history of pyelonephritis, CHF, type 1 diabetes and end-stage renal disease. TRAVEL OUTSIDE OF THE [place] IN LAST 30 DAYS: No - Related Data Allergies/Adverse Reactions: No Known Allergies Allergy (Verified 01/17/18 17:05) Past Medical History - General Information source: Patient - Social History Smoking Status: Never Smoker Chew tobacco use (# tins/day): No Frequency of alcohol use: None Drug Abuse: None Family History: Reviewed & Not Pertinent Patient has suicidal ideation: No Patient has homicidal ideation: No - Past Medical History Cardiac Medical History: Reports: Hx Congestive Heart Failure Endocrine Medical History: Reports: Hx Diabetes Mellitus Type 1 Renal/ Medical History: Reports: Hx End Stage Renal Disease. Denies: Hx Peritoneal Dialysis Past Surgical History: Reports: Hx Cardiac Surgery - pacemaker, Hx Thyroid Surgery - Partial thyroidectomy, Hx Vascular Surgery - fistula Review of Systems - Review of Systems Constitutional: No symptoms reported EENT: No symptoms reported Cardiovascular: No symptoms reported Respiratory: No symptoms reported Gastrointestinal: No symptoms reported Genitourinary: See HPI Male Genitourinary: No symptoms reported Musculoskeletal: No symptoms reported Skin: No symptoms reported Hematologic/Lymphatic: No symptoms reported Neurological/Psychological: No symptoms reported Physical Exam - Vital signs Vitals: Temp Pulse Resp BP Pulse Ox 97.8 F 78 16 159/83 H 100 01/17/18 17:09 01/17/18 17:09 01/17/18 17:09 01/17/18 17:09 01/17/18 17:09 - Notes Notes: PHYSICAL EXAMINATION: GENERAL: Well-appearing, well-nourished, sitting on the side of the stretcher rocking back and forth c/o pain. HEAD: Atraumatic, normocephalic. EYES: Pupils equal round and reactive to light, extraocular movements intact, sclera anicteric, conjunctiva are normal. ENT: Nares patent, oropharynx clear without exudates. Moist mucous membranes. NECK: Normal range of motion, supple without lymphadenopathy LUNGS: Breath sounds clear to auscultation bilaterally and equal. No wheezes rales or rhonchi. HEART: Regular rate and rhythm without murmurs ABDOMEN: Soft, nontender, nondistended abdomen. No guarding, no rebound. No masses appreciated. : Right CVA tenderness. Musculoskeletal: Normal range of motion, no pitting or edema. No cyanosis. NEUROLOGICAL: Cranial nerves grossly intact. Normal speech, normal gait. Normal sensory, motor exams PSYCH: Normal mood, normal affect. SKIN: Warm, Dry, normal turgor, no rashes or lesions noted. Course - Re-evaluation Re-evalutation: 37-year-old male patient presenting with right flank pain. Initially in triage lab workup as well as chest and L-spine x-ray were ordered. L-spine x-ray as well as chest x-ray are both unremarkable. CBC is normal. Patient does have elevated BUN and creatinine however patient is a home hemodialysis patient in BUN and creatinine are consistent with multiple previous visits. Patient does appear to be in significant pain and is sitting on the side of the bed upon my initial examination. Patient was given 5 mg of IV Valium as his pain was initially thought to be caused by a musculoskeletal strain as patient states that this started a few days ago after feeling a popping sensation after he lifted something. Thorough assessment was able to be performed after patient was given IV Valium. Patient does have explicit CVA tenderness to the right side. Patient does not have a history of any renal stones but due to patient's physical exam patient will be sent for a limited abdomen CT to rule out stone versus infectious stone. Patient urinalysis does have trace leukocytes, 87 white blood cells as well as white blood cell clumps. CT abdomen pelvis is unremarkable, no stone noted, no hydronephrosis. Patient will be discharged home as his pain is under control and patient will be put on pain and nausea medications as well as antibiotics for UTI versus pyelonephritis. Patient and spouse understand ED return precautions and patient will follow up with his primary care provider in a timely fashion for reevaluation. - Vital Signs Vital signs: Temp Pulse Resp BP Pulse Ox 97.8 F 78 16 185/108 H 100 01/17/18 17:09 01/17/18 17:09 01/17/18 22:01 01/17/18 22:01 01/17/18 22:01 - Laboratory Result Diagrams: 01/17/18 18:26 01/17/18 18:26 Laboratory results interpreted by me: 01/17/18 01/17/18 01/17/18 18:26 18:26 18:30 RBC 3.49 L Hgb 11.7 L Hct 34.5 L MCV 99 H MCH 33.5 H RDW 14.8 H Eosinophils % 7.7 H Absolute Eosinophils 0.7 H Chloride 96 L Anion Gap 21 H BUN 84 H Creatinine 17.18 H Est GFR ( Amer) 4 L Est GFR (Non-Af Amer) 3 L Glucose 114 H Direct Bilirubin 0.5 H Urine Protein >=500 H Urine Glucose (UA) 150 H Urine Blood SMALL H Ur Leukocyte Esterase TRACE H Discharge - Discharge Clinical Impression: Pyelonephritis Condition: Stable Disposition: HOME, SELF-CARE Additional Instructions: Pyelonephritis Your evaluation shows evidence of pyelonephritis. This is an infection in the kidney. Typical symptoms are fever, pain in the flank, pain on urination, and frequent urination. Many cases of pyelonephritis can be treated at home. Hospital care may be necessary for patients who are very ill, or elderly or . Pyelonephritis is treated with antibiotics. Be sure to take all the medication as prescribed. Drink plenty of liquids (about three quarts per day) . You may take acetaminophen for fever. You should feel significantly improved within two days. You should have a recheck of your urine in about one week to insure that the infection is gone. Return for a re-examination if your symptoms worsen in any way -- such as high fever, shaking chills, severe weakness or dizziness, severe pain, or inability to pass your urine. Rocephin You have been given an injection of an antibiotic called Rocephin ( ceftriaxone). Sometimes the injection must be combined with antibiotic pills. For some infections, such as an uncomplicated ear infection, Rocephin provides all the antibiotic that's needed. The antibiotic will be in your body for about two days. For serious infections, we usually repeat doses of Rocephin daily. Side effects are very unusual following a shot. Women may develop vaginal yeast infections, and babies can get yeast (thrush) in the mouth following the use of antibiotics. Contact your physician if you have symptoms with this medication. Allergy to this antibiotic can result in hives, wheezing, faintness, or itching. If symptoms of allergy occur, call the doctor at once. Toradol You have been given a dose of ketorolac tromethamine (Toradol). This is an excellent, safe drug for pain control. It also has potent antiinflammatory action. You should have significant pain relief within about one hour. Toradol is not addicting and is non-sedating. It does not interfere with driving or work. Call or return if you develop itching, hives, shortness of breath, or rash. Cephalexin The antibiotic you've been prescribed is a member of the cephalosporin class. This type of antibiotic covers a wide variety of infections, including those of the skin, lungs, and urinary tract. It's useful for staph infections. This antibiotic is slightly similar to the penicillin family. In rare cases , a person who is allergic to penicillin will also be allergic to this medication. If you have had a severe allergic reaction to penicillin, and have not taken this antibiotic since that time, notify your doctor. Antibiotics which cover many germs ("broad spectrum" antibiotics) are more likely to cause diarrhea or "yeast" infections. Women prone to vaginal yeast problems may suffer an attack after taking this antibiotic. In infants, oral thrush (white spots "stuck" on the cheek) or yeast diaper rash may result. See your doctor if these problems occur. Call at once if you develop itching, hives , shortness of breath, or lightheadedness. Oral Narcotic Medication You have been given a prescription for pain control. This medication is a narcotic. It's best taken with food, as nausea can result if taken on an empty stomach. Don't operate machinery or drive within six hours of taking this medication. Do not combine this medicine with alcohol, or with any medication which can cause sedation (such as cold tablets or sleeping pills) unless you get permission from the physician. Narcotics tend to cause constipation. If possible, drink plenty of fluids and eat a diet high in fiber and fruits. Please take all antibiotics as prescribed, continue the entire course even if your symptoms resolve. Please return to the emergency department if you develop worsening pain, vomiting, fever or any other symptom that is concerning to you. Please follow-up with your primary care doctor in the next 2-3 days for a recheck. Prescriptions: Cephalexin Monohydrate [Keflex 500 mg Capsule] 500 mg PO Q6H 7 Days #28 capsule Tramadol HCl [Ultram] 50 mg PO Q8 PRN #20 tablet PRN Reason: For Pain Referrals: PAULY OAKES PA [Primary Care Provider] - Follow up as needed
--- NOTE | 2018-01-17 19:54 | RADIOLOGY REPORT (SQ) ---
EXAM DESCRIPTION: CHEST SINGLE VIEW COMPLETED DATE/TIME: 01/17/2018 7:35 pm REASON FOR STUDY: cough COMPARISON: 09/15/2017 EXAM PARAMETERS: NUMBER OF VIEWS: One view. TECHNIQUE: Single frontal radiographic view of the chest acquired. RADIATION DOSE: NA LIMITATIONS: None. FINDINGS: LUNGS AND PLEURA: No opacities, masses or pneumothorax. No pleural effusion. MEDIASTINUM AND HILAR STRUCTURES: No masses. Contour normal. HEART AND VASCULAR STRUCTURES: Stable mild cardiomegaly. Central vasculature appears normal. BONES: No acute findings. HARDWARE: AICD. OTHER: No other significant finding. IMPRESSION: Stable radiographic appearance of the chest. No evidence of acute cardiopulmonary abnor mality. TECHNICAL DOCUMENTATION: JOB ID: [id number] [employer]- All Rights Reserved Reading location - IP/workstation name: [email or web address]
--- NOTE | 2018-01-17 20:14 | RADIOLOGY REPORT (SQ) ---
EXAM DESCRIPTION: CT LTD RENAL STONE PROTOCOL ON COMPLETED DATE/TIME: 01/17/2018 7:59 pm REASON FOR STUDY: right flank pain COMPARISON: 10/06/2017 TECHNIQUE: CT scan of the abdomen and pelvis performed without intravenous or oral contrast. Images reviewed with lung, soft tissue, and bone windows. Reconstructed coronal and sagittal MPR images revi ewed. All images stored on PACS. All CT scanners at this facility use dose modulation, iterative reconstruction, and/or weight based d osing when appropriate to reduce radiation dose to as low as reasonably achievable (ALARA). [facility]: Dose Right [facility]: CareDose [facility]: Dose Right [facility]: Teradose 4D [facility]: Smart [employer] RADIATION DOSE: CT Rad equipment meets quality standard of care and radiation dose reduction techniq ues were employed. CTDIvol: 18.0 mGy. DLP: 1094 mGy-cm.mGy. LIMITATIONS: None. FINDINGS: LOWER CHEST: No significant findings. No nodules or infiltrates. NON-CONTRASTED LIVER, SPLEEN, ADRENALS: Evaluation limited by lack of IV contrast. No identified sign ificant masses. PANCREAS: No masses. No peripancreatic inflammatory changes. GALLBLADDER: No identified stones by CT criteria. No inflammatory changes to suggest cholecystitis. RIGHT KIDNEY AND URETER: No suspicious masses. Assessment limited by lack of IV contrast. No signif icant calcifications. No hydronephrosis or hydroureter. LEFT KIDNEY AND URETER: No suspicious masses. Assessment limited by lack of IV contrast. No signifi cant calcifications. No hydronephrosis or hydroureter. AORTA AND RETROPERITONEUM: No aneurysm. No retroperitoneal masses or adenopathy. BOWEL AND PERITONEAL CAVITY: No obvious masses or inflammatory changes. No free fluid. APPENDIX: Normal. PELVIS, BLADDER, AND ABDOMINAL WALL:No abnormal masses. No free fluid. Bladder normal. BONES: No significant findings. OTHER: No other significant finding. IMPRESSION: NO SIGNIFICANT OR ACUTE PROCESS IN THE ABDOMEN OR PELVIS. COMMENT: Quality ID # [id number]: Final reports with documentation of one or more dose reduction techniques (e.g., Automated exposure control, adjustment of the mA and/or kV according to patient size, use of iterative reconstruction technique) TECHNICAL DOCUMENTATION: JOB ID: [id number] [employer]- All Rights Reserved Reading location - IP/workstation name: [email or web address]
[2018-01-17] MEDS ORDERED: CEFTRIAXONE INJ 1000 MG VIAL IV ONE (20:39)
[2018-01-17] MEDS ORDERED: HYDROCODONE/ACETAMINOPHEN 5-325 MG (6 TAB/ER DISP) PO PRN (21:59)
[2018-01-17 22:06] VITALS: BP 185/108
== END 2018-01-17 22:28 | disposition home or self-care (01) ==
LOC: ER 17:04
DX: N12 Tubulo-interstitial nephritis, not specified as acute or chronic (principal); E10.22 Type 1 diabetes mellitus with diabetic chronic kidney disease; N18.6 End stage renal disease; Z99.2 Dependence on renal dialysis
CPT/HCPCS: 99284; 96375; 96365; 36415; 87086; 82962; 83690; 85025; 80053; 81001; 71045; 72110; 76380; J3360; J1885; J0696; A9270

== ENCOUNTER 2018-05-24 18:11 | Emergency (ER) | payer MEDICARE, MEDICAID ==
--- NOTE | 2018-05-24 20:01 | ER Document Report ---
ED Medical Screen (RME) - General Chief Complaint: Back Pain Stated Complaint: BACK PAIN Time Seen by Provider: 05/24/18 19:56 Mode of Arrival: Ambulatory Information source: Patient Notes: This is a 37-year-old man with a history of insulin requiring diabetes and urine infections in the past who presents to the emergency room with right flank pain for the past 2 days. Patient does report a recent URI with cough and chills. She does appear uncomfortable in triage. TRAVEL OUTSIDE OF THE [place] IN LAST 30 DAYS: No - Related Data Allergies/Adverse Reactions: No Known Allergies Allergy (Verified 05/24/18 19:49) Past Medical History - Social History Frequency of alcohol use: None Drug Abuse: None - Past Medical History Cardiac Medical History: Reports: Hx Congestive Heart Failure Endocrine Medical History: Reports: Hx Diabetes Mellitus Type 1 Renal/ Medical History: Reports: Hx End Stage Renal Disease. Denies: Hx Peritoneal Dialysis Past Surgical History: Reports: Hx Cardiac Surgery - pacemaker, Hx Thyroid Surgery - Partial thyroidectomy, Hx Vascular Surgery - fistula Physical Exam - Vital signs Vitals: Temp Pulse Resp BP Pulse Ox 98.5 F 106 H 20 154/97 H 98 05/24/18 18:15 05/24/18 18:15 05/24/18 18:15 05/24/18 18:15 05/24/18 18:15 Course - Vital Signs Vital signs: Temp Pulse Resp BP Pulse Ox 98.5 F 106 H 20 154/97 H 98 05/24/18 18:15 05/24/18 18:15 05/24/18 18:15 05/24/18 18:15 05/24/18 18:15 Doctor's Discharge - Discharge Referrals: PAULY OAKES PA [Primary Care Provider] - Follow up as needed
[2018-05-24] MEDS ORDERED: OXYCODONE-ACETAMINOPHEN 5-325 MG TABLET PO ONE (20:02)
[2018-05-24] MEDS ORDERED: ONDANSETRON 4 MG TAB.RAPDIS PO ONE (20:02)
[2018-05-24 20:23] LABS: ABSOLUTE BASOPHILS # (AUTO) 0.1 10^3/uL (0.0-0.2); ABSOLUTE EOSINOPHILS # (AUTO) 0.7 10^3/uL (0.0-0.6); ABSOLUTE LYMPHOCYTES (AUTO) 1.9 10^3/uL (0.5-4.7); ABSOLUTE MONOCYTES (AUTO) 0.8 10^3/uL (0.1-1.4); ABSOLUTE NEUT (AUTO) 6.2 10^3/uL (1.7-8.2); BASOPHILS % (AUTO) 1.5 % (0-2); EOSINOPHILS % (AUTO) 7.5 % (0-6); HEMATOCRIT 38.7 % (37.9-51.0); HEMOGLOBIN 13.2 g/dL (13.5-17.0); LYMPHOCYTES % (AUTO) 19.7 % (13-45); MEAN CORPUSCULAR HEMOGLOBIN 32.8 pg (27.0-33.4); MEAN CORPUSCULAR HGB CONC 34.2 g/dL (32.0-36.0); MEAN CORPUSCULAR VOLUME 96 fl (80-97); PLATELET COUNT 244 10^3/uL (150-450); RED BLOOD COUNT 4.04 10^6/uL (4.35-5.55); RED CELL DISTRIBUTION WIDTH 14.5 % (11.5-14.0); SEGMENTED NEUTROPHILS % (AUTO) 63.3 % (42-78); TOTAL CELLS COUNTED % (AUTO) 100 %; WHITE BLOOD COUNT 9.7 10^3/uL (4.0-10.5)
[2018-05-24 20:43] LABS: ALANINE AMINOTRANSFERASE 23 U/L (21-72); ALBUMIN 4.8 g/dL (3.5-5.0); ALKALINE PHOSPHATASE 65 U/L (38-126); ANION GAP 18 (5-19); ASPARTATE AMINO TRANSFERASE 25 U/L (17-59); BILIRUBIN,DIRECT 0.8 mg/dL (0.0-0.4); BILIRUBIN,TOTAL 0.9 mg/dL (0.2-1.3); BLOOD UREA NITROGEN 51 mg/dL (7-20); CALCIUM 10.2 mg/dL (8.4-10.2); CARBON DIOXIDE 28 mmol/L (22-30); CHLORIDE 91 mmol/L (98-107); GLUCOSE 210 mg/dL (75-110); POTASSIUM 4.5 mmol/L (3.6-5.0); SODIUM 137.2 mmol/L (137-145); TOTAL PROTEIN 8.9 g/dL (6.3-8.2)
[2018-05-24 20:52] LABS: APPEARANCE,URINE CLOUDY; BILIRUBIN,URINE NEGATIVE (NEGATIVE); COLOR,URINE YELLOW; GLUCOSE, URINE >=500 mg/dL (NEGATIVE); KETONES,URINE NEGATIVE (NEGATIVE); LEUKOCYTE ESTERASE,URINE MODERATE (NEGATIVE); NITRITE,URINE NEGATIVE (NEGATIVE); PROTEIN,URINE >=500 mg/dL (NEGATIVE); URINE SPECIFIC GRAVITY 1.023; UROBILINOGEN,URINE NEGATIVE mg/dL (<2.0)
--- NOTE | 2018-05-24 21:28 | ER Document Report ---
ED General - General Chief Complaint: Back Pain Stated Complaint: BACK PAIN Time Seen by Provider: 05/24/18 19:56 Mode of Arrival: Ambulatory Notes: Patient is a 37-year-old male who is on dialysis patient who presents with chief complaint of mid back pain times 3 days. Patient denies any injury or trauma. Patient denies any urinary symptoms to include frequency, dysuria or urgency. Patient denies any fevers. Patient describes the pain as a constant achy pain. TRAVEL OUTSIDE OF THE [place] IN LAST 30 DAYS: No - Related Data Allergies/Adverse Reactions: hydromorphone [From Dilaudid] Adverse Reaction (Verified 05/24/18 23:01) Past Medical History - General Information source: Patient - Social History Smoking Status: Never Smoker Frequency of alcohol use: None Drug Abuse: None Family History: Reviewed & Not Pertinent Patient has suicidal ideation: No Patient has homicidal ideation: No - Past Medical History Cardiac Medical History: Reports: Hx Congestive Heart Failure Endocrine Medical History: Reports: Hx Diabetes Mellitus Type 1 Renal/ Medical History: Reports: Hx End Stage Renal Disease. Denies: Hx Peritoneal Dialysis Past Surgical History: Reports: Hx Cardiac Surgery - pacemaker, Hx Thyroid Surgery - Partial thyroidectomy, Hx Vascular Surgery - fistula Review of Systems - Review of Systems Musculoskeletal: Back pain -: Yes All other systems reviewed and negative Physical Exam - Vital signs Vitals: Temp Pulse Resp BP Pulse Ox 98.5 F 106 H 20 154/97 H 98 05/24/18 18:15 05/24/18 18:15 05/24/18 18:15 05/24/18 18:15 05/24/18 18:15 - Notes Notes: PHYSICAL EXAMINATION: GENERAL: Well-appearing, well-nourished and mild distress. HEAD: Atraumatic, normocephalic. EYES: Pupils equal round and reactive to light, extraocular movements intact, sclera anicteric, conjunctiva are normal. ENT: Nares patent, oropharynx clear without exudates. Moist mucous membranes. NECK: Normal range of motion, supple without lymphadenopathy LUNGS: Breath sounds clear to auscultation bilaterally and equal. No wheezes rales or rhonchi. HEART: Regular rate and rhythm without murmurs ABDOMEN: Soft, nontender, nondistended abdomen. No guarding, no rebound. No masses appreciated. Genitourinary: Bilateral CVA tenderness on palpation. Musculoskeletal: Normal range of motion, no pitting or edema. No cyanosis. NEUROLOGICAL: Cranial nerves grossly intact. Normal speech, normal gait. Normal sensory, motor exams PSYCH: Normal mood, normal affect. SKIN: Warm, Dry, normal turgor, no rashes or lesions noted. Course - Re-evaluation Re-evalutation: Urinalysis reveals proteinuria, glucose, small blood, moderate leukocyte esterase,> 182 white blood cells and white blood cell clumps. No leukocytosis noted on CBC. Electrolytes normal. BUN 51, creatinine 10.35, patient is a dialysis patient and this is actually improved from his last BUN and creatinine. Lactic acid is 1.5. Patient given 1 g of ceftriaxone IV as well as IV fluids. Patient has not vomited while in the department, vital signs have remained stable, no episodes of hypotension, tachycardia or fever. Patient states that he is feeing better, patient meets criteria for outpatient treatment of his pyelonephritis. Urine culture sent. Patient given strict ED return precautions and will be placed on oral cephalexin. cephalexin. - Vital Signs Vital signs: Temp Pulse Resp BP Pulse Ox 98.5 F 106 H 16 153/90 H 99 05/24/18 18:15 05/24/18 18:15 05/25/18 03:30 05/25/18 03:00 05/25/18 03:30 - Laboratory Result Diagrams: 05/24/18 20:08 05/24/18 20:08 Laboratory results interpreted by me: 05/24/18 05/24/18 05/24/18 19:53 20:08 20:08 RBC 4.04 L Hgb 13.2 L RDW 14.5 H Eosinophils % 7.5 H Absolute Eosinophils 0.7 H Chloride 91 L BUN 51 H Creatinine 10.35 H Est GFR ( Amer) 7 L Est GFR (Non-Af Amer) 6 L Glucose 210 H Direct Bilirubin 0.8 H Total Protein 8.9 H Urine Protein >=500 H Urine Glucose (UA) >=500 H Urine Blood SMALL H Ur Leukocyte Esterase MODERATE H Discharge - Discharge Clinical Impression: Pyelonephritis Condition: Stable Disposition: HOME, SELF-CARE Additional Instructions: PYELONEPHRITIS: Your evaluation shows evidence of pyelonephritis. This is an infection in the kidney. Typical symptoms are fever, pain in the flank, pain on urination, and frequent urination. Many cases of pyelonephritis can be treated at home. Hospital care may be necessary for patients who are very ill, or elderly or . Pyelonephritis is treated with antibiotics. Be sure to take all the medication as prescribed. Drink plenty of liquids (about three quarts per day) . You may take acetaminophen for fever. You should feel significantly improved within two days. You should have a recheck of your urine in about one week to insure that the infection is gone. Return for a re-examination if your symptoms worsen in any way -- such as high fever, shaking chills, severe weakness or dizziness, severe pain, or inability to pass your urine. ANTINAUSEA MEDICATION: You have been given a medication to suppress nausea and vomiting. This type of medication can be given as a shot, pill, or suppository. It will usually last for many hours. Pills and shots usually last six to eight hours, suppositories last about 12 hours. For the typical illness, only one or two doses of the medication may be necessary. Mild lightheadedness may occur. This type of medicine can cause drowsiness. Do not drive or operate dangerous machinery while under its influence. Do not mix with alcohol. See your doctor at once if you have muscle spasms or tightness, or uncontrollable motions (particularly of the neck, mouth, or jaw). Persistent vomiting or severe lightheadedness should also be evaluated by the physician. ANTIBIOTIC THERAPY: You have been given an antibiotic prescription. It's important that you take all the medication, unless instructed otherwise by your physician. Failure to complete the entire course can result in relapse of your condition. Common side effects of antibiotics include nausea, intestinal cramping, or diarrhea. Women may develop vaginal yeast infections, and babies can get yeast (thrush) in the mouth following the use of antibiotics. Contact your physician if you develop significant side effects from this medication. Allergy to this antibiotic can result in hives, wheezing, faintness, or itching. If symptoms of allergy occur, stop the medication and call the doctor. ROCEPHIN: You have been given an injection of an antibiotic called Rocephin ( ceftriaxone). Sometimes the injection must be combined with antibiotic pills. For some infections, such as an uncomplicated ear infection, Rocephin provides all the antibiotic that's needed. The antibiotic will be in your body for about two days. For serious infections, we usually repeat doses of Rocephin daily. Side effects are very unusual following a shot. Women may develop vaginal yeast infections, and babies can get yeast (thrush) in the mouth following the use of antibiotics. Contact your physician if you have symptoms with this medication. Allergy to this antibiotic can result in hives, wheezing, faintness, or itching. If symptoms of allergy occur, call the doctor at once. CEPHALEXIN: The antibiotic you've been prescribed is a member of the cephalosporin class. This type of antibiotic covers a wide variety of infections, including those of the skin, lungs, and urinary tract. It's useful for staph infections. This antibiotic is slightly similar to the penicillin family. In rare cases , a person who is allergic to penicillin will also be allergic to this medication. If you have had a severe allergic reaction to penicillin, and have not taken this antibiotic since that time, notify your doctor. Antibiotics which cover many germs ("broad spectrum" antibiotics) are more likely to cause diarrhea or "yeast" infections. Women prone to vaginal yeast problems may suffer an attack after taking this antibiotic. In infants, oral thrush (white spots "stuck" on the cheek) or yeast diaper rash may result. See your doctor if these problems occur. Call at once if you develop itching, hives , shortness of breath, or lightheadedness. USE OF ACETAMINOPHEN (Tylenol): Acetaminophen may be taken for pain relief or fever control. It's much safer than aspirin, offering a wider range of "safe" dosages. It is safe during . Some brand names are Tylenol, Panadol, Datril, Anacin 3, Tempra, and Liquiprin. Acetaminophen can be repeated every four hours. The following are maximum recommended dosages: >89 pounds or adults 650 mg to 900 mg Acetaminophen can be repeated every four hours. Maximum dose not to exceed 4000 mg a day. ORAL NARCOTIC MEDICATION: You have been given a prescription for pain control. This medication is a narcotic. It's best taken with food, as nausea can result if taken on an empty stomach. Don't operate machinery or drive within six hours of taking this medication. Do not combine this medicine with alcohol, or with any medication which can cause sedation (such as cold tablets or sleeping pills) unless you get permission from the physician. Narcotics tend to cause constipation. If possible, drink plenty of fluids and eat a diet high in fiber and fruits. Please be aware that prescription narcotics also have the potential for abuse. People become addicted to these medications because of the general sense of wellbeing that they induce. This feeling along with a significant reduction in tension, anxiety, and aggression provides a stimulating seductive quality to these drugs. Once your pain is under control, we encourage you to discard your unused narcotics. FOLLOW-UP CARE: If you have been referred to a physician for follow-up care, call the physician s office for an appointment as you were instructed or within the next two days. If you experience worsening or a significant change in your symptoms, notify the physician immediately or return to the Emergency Department at any time for re-evaluation. Your urine was sent for culture, we will call you if there are any abnormal results. Please take the antibiotics as directed. Please take ibuprofen 600 mg every 6 hours. Please use the oral narcotic pain medication only for severe pain. Push lots of fluids. Use the antinausea medicines as needed. Prescriptions: Cephalexin Monohydrate [Keflex 500 mg Capsule] 500 mg PO Q6H 5 Days #20 capsule Ondansetron [Zofran Odt 4 mg Tablet] 1 - 2 tab PO Q4H PRN #15 tab.rapdis PRN Reason: For Nausea/Vomiting Referrals: PAULY OAKES PA [Primary Care Provider] - Follow up as needed
[2018-05-24] MEDS ORDERED: CEFTRIAXONE INJ 1000 MG VIAL IV ONE (22:03)
[2018-05-24] MEDS ORDERED: MORPHINE SULFATE 10 MG/ML INJ IV ONE (22:04)
[2018-05-24] MEDS ORDERED: ONDANSETRON HCL INJ/PF 4 MG/2 ML SDV IV ONE (22:04)
[2018-05-24] MEDS ORDERED: NORMAL SALINE 1000 ML 1,000 ML IV ONE ×2 (22:08→22:09)
[2018-05-24] MEDS ORDERED: CARVEDILOL 12.5 MG TABLET PO ONE (23:04)
[2018-05-25] MEDS ORDERED: METOCLOPRAMIDE HCL INJ/PF 10 MG/2 ML SDV IV ONE (00:18)
[2018-05-25] MEDS ORDERED: MORPHINE SULFATE 10 MG/ML INJ IV ONE (01:21)
[2018-05-25] MEDS ORDERED: ONDANSETRON ODT 4 MG TAB (6 TAB/ER DISP) PO PRN (03:08)
[2018-05-25] MEDS ORDERED: HYDROCODONE/ACETAMINOPHEN 5-325 MG (6 TAB/ER DISP) PO PRN (03:08)
[2018-05-25 03:47] VITALS: BP 153/90
== END 2018-05-25 04:00 | disposition home or self-care (01) ==
LOC: ER 18:11
DX: N12 Tubulo-interstitial nephritis, not specified as acute or chronic (principal); M54.9 Dorsalgia, unspecified; E10.22 Type 1 diabetes mellitus with diabetic chronic kidney disease; N18.6 End stage renal disease; Z99.2 Dependence on renal dialysis
CPT/HCPCS: 99283; 96361; 96375; 96365; 36415; 87086; 85025; 80053; 81001; 83605; A9270 ×4; J2765; J2270 ×2; J0696; J2405; S0119

== ENCOUNTER 2018-06-07 11:23 | Inpatient (IN) | payer MEDICARE, MEDICAID ==
--- NOTE | 2018-06-07 11:49 | ER Document Report ---
ED Medical Screen (RME) - General Chief Complaint: Chest Pain Stated Complaint: CHEST PAINS Time Seen by Provider: 06/07/18 11:49 Notes: Patient is a 37-year-old male with end-stage renal disease on dialysis, and CHF with AICD placement that presents to the emergency department for chief complaint of right flank pain, chest pain. Patient believes that he has a urinary tract infection or kidney infection, which she was diagnosed with in the past and recently, was on Keflex and finished not too long ago, but he states the symptoms have returned and worsened, with pain in his left flank, describes having a tightness across his chest as well. He does home hemodialysis 4 times a week, last session was on Friday.. ROS: Unless otherwise stated in this report the patient's positive and negative responses for review of systems for constitutional, eyes, ENT, cardiovascular, respiratory, gastrointestinal, neurological, genitourinary, musculoskeletal, and integumentary systems and related systems to the presenting problem are either as stated in the HPI or were not pertinent or were negative for the symptoms and/or complaints related to the presenting medical problem. PHYSICAL EXAMINATION: Vital signs reviewed. GENERAL: Well-appearing, well-nourished and in no acute distress. HEAD: Atraumatic, normocephalic. EYES: Pupils equal round extraocular movements intact, conjunctiva are normal. ENT: Nares patent NECK: Normal range of motion CV: Heart regular rate and rhythm LUNGS: No respiratory distress, lungs are clear to auscultation there is reproducible tenderness with palpation to the right chest wall. Abdomen: Right flank tenderness with palpation Musculoskeletal: Normal range of motion NEUROLOGICAL: Normal speech PSYCH: Normal mood, normal affect. MDM: Patient seen and examined for rapid initial assessment. Vital signs reviewed. EKG reviewed, sinus rhythm, no STEMI. A comprehensive ED assessment and evaluation of the patient, analysis of test results and completion of the medical decision making process will be conducted by additional ED providers. *Note is created using voice recognition software and may contain spelling, syntax or grammatical errors. TRAVEL OUTSIDE OF THE [place] IN LAST 30 DAYS: No - Related Data Allergies/Adverse Reactions: hydromorphone [From Dilaudid] Adverse Reaction (Verified 06/07/18 11:28) Past Medical History - Past Medical History Cardiac Medical History: Reports: Hx Congestive Heart Failure Endocrine Medical History: Reports: Hx Diabetes Mellitus Type 1 Renal/ Medical History: Reports: Hx End Stage Renal Disease. Denies: Hx Peritoneal Dialysis Past Surgical History: Reports: Hx Cardiac Surgery - pacemaker, Hx Thyroid Surgery - Partial thyroidectomy, Hx Vascular Surgery - fistula Physical Exam - Vital signs Vitals: Temp Pulse Resp BP Pulse Ox 97.3 F 93 19 197/100 H 97 06/07/18 11:39 06/07/18 11:39 06/07/18 11:39 06/07/18 11:39 06/07/18 11:39 Course - Vital Signs Vital signs: Temp Pulse Resp BP Pulse Ox 97.3 F 93 19 197/100 H 97 06/07/18 11:39 06/07/18 11:39 06/07/18 11:39 06/07/18 11:39 06/07/18 11:39 Doctor's Discharge - Discharge Referrals: PAULY OAKES PA [Primary Care Provider] - Follow up as needed
--- NOTE | 2018-06-07 12:42 | ER Document Report ---
ED Cardiac - General Chief Complaint: Chest Pain Stated Complaint: CHEST PAINS Time Seen by Provider: 06/07/18 11:49 Mode of Arrival: Ambulatory Information source: Patient TRAVEL OUTSIDE OF THE [place] IN LAST 30 DAYS: No - HPI Patient complains to provider of: Chest pain Was the onset of pain: Sudden Is the pain a: New problem Chest pain location: Substernal Quality of pain: None Severity now: Mild Severity at worst: Mild Pain level currently: 1 Chest pain precipitating factors: At Rest Cardiac risk factors: Diabetes Positive cardiac history: Yes Associated symptoms: None Exacerbated by: Denies Relieved by: Nothing Similar symptoms previously: Yes Recently seen / treated by doctor: No - Related Data Allergies/Adverse Reactions: hydromorphone [From Dilaudid] Adverse Reaction (Verified 06/07/18 11:28) Past Medical History - Social History Smoking Status: Never Smoker Frequency of alcohol use: None Drug Abuse: None Family History: Reviewed & Not Pertinent Patient has suicidal ideation: No Patient has homicidal ideation: No - Past Medical History Cardiac Medical History: Reports: Hx Congestive Heart Failure Endocrine Medical History: Reports: Hx Diabetes Mellitus Type 1 Renal/ Medical History: Reports: Hx End Stage Renal Disease. Denies: Hx Peritoneal Dialysis Past Surgical History: Reports: Hx Cardiac Surgery - pacemaker, Hx Thyroid Surgery - Partial thyroidectomy, Hx Vascular Surgery - fistula Review of Systems - Review of Systems Constitutional: No symptoms reported EENT: No symptoms reported Cardiovascular: Chest pain Respiratory: No symptoms reported Gastrointestinal: No symptoms reported Genitourinary: No symptoms reported Male Genitourinary: No symptoms reported Musculoskeletal: No symptoms reported Skin: No symptoms reported Hematologic/Lymphatic: No symptoms reported Neurological/Psychological: No symptoms reported -: Yes All other systems reviewed and negative Physical Exam - Vital signs Vitals: Temp Pulse Resp BP Pulse Ox 97.3 F 93 19 197/100 H 97 06/07/18 11:39 06/07/18 11:39 06/07/18 11:39 06/07/18 11:39 06/07/18 11:39 - General General appearance: Appears well, Alert In distress: None - HEENT Head: Normocephalic, Atraumatic Eyes: Normal Pupils: PERRL - Respiratory Respiratory status: No respiratory distress Chest status: Nontender Breath sounds: Normal Chest palpation: Normal - Cardiovascular Rhythm: Regular Heart sounds: Normal auscultation Murmur: No - Abdominal Inspection: Normal Distension: No distension Bowel sounds: Normal Tenderness: Nontender Organomegaly: No organomegaly - Back Back: Normal, Nontender - Extremities General upper extremity: Normal inspection, Nontender, Normal color, Normal ROM , Normal temperature General lower extremity: Normal inspection, Nontender, Normal color, Normal ROM , Normal temperature, Normal weight bearing. No: Rito's sign - Neurological Neuro grossly intact: Yes Cognition: Normal Orientation: AAOx4 [place] Coma Scale Eye Opening: Spontaneous [place] Coma Scale Verbal: Oriented [place] Coma Scale Motor: Obeys Commands [place] Coma Scale Total: 15 Speech: Normal Motor strength normal: LUE, RUE, LLE, RLE Sensory: Normal - Psychological Associated symptoms: Normal affect, Normal mood - Skin Skin Temperature: Warm Skin Moisture: Dry Skin Color: Normal Course - Vital Signs Vital signs: Temp Pulse Resp BP Pulse Ox 97.3 F 93 23 H 190/100 H 100 06/07/18 11:39 06/07/18 11:39 06/07/18 13:18 06/07/18 13:18 06/07/18 13:18 - Laboratory Result Diagrams: 06/07/18 14:59 06/07/18 14:59 Laboratory results interpreted by me: 06/07/18 06/07/18 06/07/18 12:05 12:46 14:59 RBC 3.61 L Hgb 12.0 L Hct 34.7 L RDW 14.2 H Eosinophils % 7.0 H Absolute Eosinophils 0.7 H Chloride Anion Gap BUN Creatinine Est GFR ( Amer) Est GFR (Non-Af Amer) Glucose POC Glucose 167 H Calcium Direct Bilirubin NT-Pro-B Natriuret Pep Total Protein Urine Protein >=500 H Urine Glucose (UA) >=500 H Urine Blood SMALL H Ur Leukocyte Esterase MODERATE H 06/07/18 06/07/18 14:59 14:59 RBC Hgb Hct RDW Eosinophils % Absolute Eosinophils Chloride 94 L Anion Gap 20 H BUN 89 H Creatinine 16.67 H Est GFR ( Amer) 4 L Est GFR (Non-Af Amer) 3 L Glucose 37 L* POC Glucose Calcium 10.5 H Direct Bilirubin 0.9 H NT-Pro-B Natriuret Pep 8090 H Total Protein 9.1 H Urine Protein Urine Glucose (UA) Urine Blood Ur Leukocyte Esterase - Diagnostic Test Radiology reviewed: Image reviewed, Reports reviewed - EKG Interpretation by Me EKG shows normal: Sinus rhythm Rate: Normal - 92 Rhythm: NSR When compared to previous EKG there are: No significant change - Transfer of Care Notes: 06/07/18 16:21 I consulted the hospitalist weapons electrical engineering officer Dr. [place]. She will admit the patient to the hospital for further evaluation and management. Critical Care Note - Critical Care Note Total time excluding time spent on procedures (mins): 40 Discharge - Discharge Clinical Impression: ESRD (end stage renal disease) on dialysis, Hypoglycemia associated with type 2 diabetes mellitus, Uremia, Right flank pain Chest pain Qualifiers: Chest pain type: unspecified Qualified Code(s): R07.9 - Chest pain, unspecified UTI (urinary tract infection) Qualifiers: Urinary tract infection type: acute cystitis Hematuria presence: without hematuria Qualified Code(s): N30.00 - Acute cystitis without hematuria Condition: Stable Disposition: ADMITTED INPATIENT Admitting Provider: Hospitalist - Dr Adore [place] Unit Admitted: Telemetry Referrals: PAULY OAKES PA [Primary Care Provider] - Follow up as needed
--- NOTE | 2018-06-07 13:06 | RADIOLOGY REPORT (SQ) ---
EXAM DESCRIPTION: CHEST 2 VIEWS COMPLETED DATE/TIME: 06/07/2018 12:42 pm REASON FOR STUDY: chest pain COMPARISON: 09/15/2017 EXAM PARAMETERS: NUMBER OF VIEWS: two views TECHNIQUE: Digital Frontal and Lateral radiographic views of the chest acquired. RADIATION DOSE: NA LIMITATIONS: none FINDINGS: LUNGS AND PLEURA: No opacities, masses or pneumothorax. No pleural effusion. MEDIASTINUM AND HILAR STRUCTURES: No masses or contour abnormalities. HEART AND VASCULAR STRUCTURES: Stable heart size. No evidence for failure. BONES: No acute findings. HARDWARE: Stable position of defibrillator. OTHER: No other significant finding. IMPRESSION: NO ACUTE RADIOGRAPHIC FINDING IN THE CHEST. TECHNICAL DOCUMENTATION: JOB ID: [id number] [employer]- All Rights Reserved Reading location - IP/workstation name: [email or web address]
[2018-06-07 13:09] LABS: APPEARANCE,URINE SLIGHTLY-CLOUDY; BILIRUBIN,URINE NEGATIVE (NEGATIVE); COLOR,URINE YELLOW; GLUCOSE, URINE >=500 mg/dL (NEGATIVE); KETONES,URINE NEGATIVE (NEGATIVE); LEUKOCYTE ESTERASE,URINE MODERATE (NEGATIVE); NITRITE,URINE NEGATIVE (NEGATIVE); PROTEIN,URINE >=500 mg/dL (NEGATIVE); URINE SPECIFIC GRAVITY 1.022; UROBILINOGEN,URINE NEGATIVE mg/dL (<2.0)
--- NOTE | 2018-06-07 14:30 | RADIOLOGY REPORT (SQ) ---
EXAM DESCRIPTION: CT ABD/PELVIS NO ORAL OR IV COMPLETED DATE/TIME: 06/07/2018 2:10 pm REASON FOR STUDY: Right Flank Pain COMPARISON: None. TECHNIQUE: CT scan of the abdomen and pelvis performed without intravenous or oral contrast. Images reviewed with lung, soft tissue, and bone windows. Reconstructed coronal and sagittal MPR images revi ewed. All images stored on PACS. All CT scanners at this facility use dose modulation, iterative reconstruction, and/or weight based d osing when appropriate to reduce radiation dose to as low as reasonably achievable (ALARA). [facility]: Dose Right [facility]: CareDose [facility]: Dose Right [facility]: Teradose 4D [facility]: [employer] RADIATION DOSE: CT Rad equipment meets quality standard of care and radiation dose reduction techniq ues were employed. CTDIvol: 19.1 mGy. DLP: 1078 mGy-cm.mGy. LIMITATIONS: None. FINDINGS: LOWER CHEST: Small patchy airspace opacities in the right lower lobe. NON-CONTRASTED LIVER, SPLEEN, ADRENALS: Evaluation limited by lack of IV contrast. No identified sign ificant masses. PANCREAS: No masses. No peripancreatic inflammatory changes. GALLBLADDER: No calcified stones. No inflammatory changes to suggest cholecystitis. RIGHT KIDNEY AND URETER: No cysts identified. No solid masses. No calcified stones. No hydronephrosis or hydroureter. LEFT KIDNEY AND URETER: No cysts identified. No solid masses. No calcified stones. No hydronephrosis or hydroureter. AORTA AND RETROPERITONEUM: No aneurysm. No retroperitoneal masses or adenopathy. BOWEL AND PERITONEAL CAVITY: No obvious masses or inflammatory changes. No free fluid. APPENDIX: Normal. PELVIS, BLADDER, AND ABDOMINAL WALL:No abnormal masses. No free fluid. Unremarkable bladder. BONES: No acute findings. OTHER: No other significant finding. IMPRESSION: Small patchy airspace opacities in the right lower lobe. No acute findings in the abdom en. TECHNICAL DOCUMENTATION: JOB ID: [id number] [id number] Quality ID # [id number]: Final reports with documentation of one or more dose reduction techniques (e.g., Au tomated exposure control, adjustment of the mA and/or kV according to patient size, use of iterative reconstruction technique) 2010 [employer]- All Rights Reserved Reading location - IP/workstation name: [email or web address]
[2018-06-07 15:18] LABS: ABSOLUTE BASOPHILS # (AUTO) 0.1 10^3/uL (0.0-0.2); ABSOLUTE EOSINOPHILS # (AUTO) 0.7 10^3/uL (0.0-0.6); ABSOLUTE LYMPHOCYTES (AUTO) 2.5 10^3/uL (0.5-4.7); ABSOLUTE MONOCYTES (AUTO) 0.8 10^3/uL (0.1-1.4); ABSOLUTE NEUT (AUTO) 5.7 10^3/uL (1.7-8.2); BASOPHILS % (AUTO) 1.3 % (0-2); HEMATOCRIT 34.7 % (37.9-51.0); LYMPHOCYTES % (AUTO) 25.4 % (13-45); MEAN CORPUSCULAR HEMOGLOBIN 33.3 pg (27.0-33.4); MEAN CORPUSCULAR HGB CONC 34.7 g/dL (32.0-36.0); MEAN CORPUSCULAR VOLUME 96 fl (80-97); MONOCYTES % (AUTO) 8.1 % (3-13); PLATELET COUNT 250 10^3/uL (150-450); RED BLOOD COUNT 3.61 10^6/uL (4.35-5.55); RED CELL DISTRIBUTION WIDTH 14.2 % (11.5-14.0); SEGMENTED NEUTROPHILS % (AUTO) 58.2 % (42-78); TOTAL CELLS COUNTED % (AUTO) 100 %; WHITE BLOOD COUNT 9.9 10^3/uL (4.0-10.5)
[2018-06-07 15:21] LABS: INTERNATIONAL RATION (INR) 1.04; PROTHROMBIN TIME 14.1 SEC (11.4-15.4)
[2018-06-07] MEDS ORDERED: CEFTRIAXONE 1 GM/D5W RTU 1 GM/50 ML RTUPB IV ONE (15:26)
[2018-06-07 15:42] LABS: ALANINE AMINOTRANSFERASE 23 U/L (21-72); ALBUMIN 4.8 g/dL (3.5-5.0); ALKALINE PHOSPHATASE 71 U/L (38-126); ASPARTATE AMINO TRANSFERASE 26 U/L (17-59); BILIRUBIN,DIRECT 0.9 mg/dL (0.0-0.4); BLOOD UREA NITROGEN 89 mg/dL (7-20); CALCIUM 10.5 mg/dL (8.4-10.2); POTASSIUM 4.9 mmol/L (3.6-5.0); TOTAL PROTEIN 9.1 g/dL (6.3-8.2)
[2018-06-07 15:49] LABS: CARBON DIOXIDE 27 mmol/L (22-30); CHLORIDE 94 mmol/L (98-107); SODIUM 141.2 mmol/L (137-145)
[2018-06-07 15:50] LABS: ANION GAP 20 (5-19)
[2018-06-07 15:52] LABS: GLUCOSE 37 mg/dL (75-110)
[2018-06-07] MEDS ORDERED: DEXTROSE 50%-WATER 25 GM/50 ML DISP.SYRIN IV ONE ×2 (15:52→15:56)
[2018-06-07] MEDS ORDERED: DEXTROSE 40% GEL 15 GM TUBE PO PRN ×4 (17:32→18:42)
[2018-06-07] MEDS ORDERED: GLUCAGON,HUMAN RECOMB 1 MG INJ SUBCUT PRN (17:32)
[2018-06-07] MEDS ORDERED: DEXTROSE 50%-WATER 25 GM/50 ML DISP.SYRIN IV PRN ×4 (17:32→18:42)
[2018-06-07] MEDS ORDERED: CEFTRIAXONE INJ 1000 MG VIAL ONE (17:42)
[2018-06-07] MEDS ORDERED: VANCOMYCIN HCL 0 MG in DEXTROSE 5%-WATER 250 ML IV NR (17:45)
--- NOTE | 2018-06-07 18:18 | PDOC H&P ---
History of Present Illness Admission Date/PCP: 06/07/18 16:47 MOLLY NOEL Patient complains of: Right lateral chest pain and right flank pain History of Present Illness: PEPE SOLIZ is a 37 year old man with type 1 diabetes, end-stage kidney disease recently accepted for transplant, who uses hemodialysis at home. He was seen in the ER 2 weeks ago and diagnosed with urinary tract infection and has just completed a dose of Keflex. He states that a day or 2 after he finished the Keflex he started to have right flank and right lateral chest pain. The discomfort has become worse and worse and then today it was so bad that he came into the ER. Yesterday he had a slight fever. No shortness of breath or cough. No sputum production. Is admitted to the hospitalist for evaluation for source of pain, patient likely has right lung pneumonia and urinary tract infection. Past Medical History Cardiac Medical History: Reports: Congestive Heart Failure Pulmonary Medical History: Reports: Pneumonia EENT Medical History: Reports: Eyes Neurological Medical History: Denies: Ischemic CVA, Seizures Endocrine Medical History: Reports: Diabetes Mellitus Type 1 Renal/ Medical History: Reports: End Stage Renal Disease Malignancy Medical History: Reports: None GI Medical History: Denies: Hepatitis Musculoskeltal Medical History: Denies: Fibromyalgia Skin Medical History: Denies: Eczema, Psoriasis Psychiatric Medical History: Denies: Alcohol Dependency, Substance Abuse, Tobacco Dependency Traumatic Medical History: Reports: None Hematology: Reports: Anemia Infectious Medical History: Reports: None Past Surgical History Past Surgical History: Reports: Vascular Surgery - fistula Social History Information Source: Patient Occupation: Patient is disabled Smoking Status: Never Smoker Frequency of Alcohol Use: None Hx Recreational Drug Use: No Drugs: None Past Social History Note: He lives with his Dao in [place]. He has family in [place] in [place]. He has no children. - Advance Directive Resuscitation Status: Full Code Surrogate healthcare decision maker:: His Dao is his healthcare surrogate. Her phone number is [phone] Family History Family History: Reviewed & Not Pertinent Parental Family History Reviewed: Yes Children Family History Reviewed: Yes - has no children Sibling(s) Family History Reviewed.: Yes Medication/Allergy Home Medications: Carvedilol 12.5 mg PO BID 01/17/18 Cyclobenzaprine HCl 10 mg PO PRN PRN 01/17/18 Ferric Citrate [Auryxia] 210 mg PO TID 01/17/18 Gabapentin 300 mg PO BID 01/17/18 Tramadol HCl [Ultram] 50 mg PO Q8 PRN #20 tablet 01/17/18 Vit B Complx C/Folic Acid/Zinc [Renaplex Tablet] 1 each PO DAILY 01/17/18 Insuln Asp Prt/Insulin Aspart [Novolog Mix 70-30 Cartridge] 100 unit SQ ASDIR PRN 05/24/18 Ondansetron [Zofran Odt 4 mg Tablet] 1 - 2 tab PO Q4H PRN #15 tab.rapdis Calcitriol 2 tab PO DAILY 06/07/18 Duloxetine HCl 30 mg PO QHS 06/07/18 Omeprazole 20 mg PO DAILY 06/07/18 Allergies/Adverse Reactions: hydromorphone [From Dilaudid] Adverse Reaction (Verified 06/07/18 11:28) Review of Systems Constitutional: PRESENT: chills, fatigue, fever(s). ABSENT: headache(s), night sweats Eyes: ABSENT: visual disturbances Ears: ABSENT: hearing changes Nose, Mouth, and Throat: ABSENT: sore throat Cardiovascular: PRESENT: chest pain, dyspnea on exertion Respiratory: ABSENT: cough, hemoptysis Gastrointestinal: ABSENT: abdominal pain, constipation, nausea, vomiting Genitourinary: PRESENT: other - An uric Musculoskeletal: PRESENT: back pain. ABSENT: deformity Integumentary: ABSENT: lesions, pruritus Neurological: ABSENT: confusion, convulsions, numbness, syncope, tingling Psychiatric: ABSENT: anxiety, depression Hematologic/Lymphatic: ABSENT: easy bleeding, easy bruising Physical Exam Vital Signs: Temp Pulse Resp BP Pulse Ox 97.4 F 83 18 190/108 H 99 06/07/18 17:06 06/07/18 17:06 06/07/18 17:06 06/07/18 17:06 06/07/18 17:06 Intake & Output 06/06/18 06/07/18 06/08/18 06:59 06:59 06:59 Weight 118.4 kg General appearance: PRESENT: cooperative, mild distress, obese Head exam: PRESENT: atraumatic, normocephalic Eye exam: PRESENT: EOMI. ABSENT: conjunctival injection, scleral icterus Ear exam: PRESENT: normal external ear exam Mouth exam: PRESENT: moist, tongue midline Respiratory exam: PRESENT: decreased breath sounds - Right base decreased, unlabored. ABSENT: rales, rhonchi, wheezes Cardiovascular exam: PRESENT: RRR. ABSENT: systolic murmur GI/Abdominal exam: PRESENT: normal bowel sounds, soft. ABSENT: distended, tenderness Rectal exam: PRESENT: deferred Gentrourinary exam: PRESENT: other - Right flank tenderness to palpation Musculoskeletal exam: PRESENT: normal inspection. ABSENT: deformity Neurological exam: PRESENT: alert, awake, oriented to person, oriented to place , oriented to situation, CN II-XII grossly intact Psychiatric exam: PRESENT: appropriate affect. ABSENT: anxious Skin exam: PRESENT: dry, intact, warm Results Impressions: Chest X-Ray 06/07/18 11:58 IMPRESSION: NO ACUTE RADIOGRAPHIC FINDING IN THE CHEST. Abdomen/Pelvis CT 06/07/18 13:49 IMPRESSION: Small patchy airspace opacities in the right lower lobe. No acute findings in the abdomen. Assessment & Plan - Diagnosis (1) Right lower lobe pneumonia Is this a current diagnosis for this admission?: Yes Plan: Patient has had a fever, right lateral chest pleuritic pain, decreased breath sounds at the right base, consolidation on CT scan, chest x-ray of note was clear. Patient has recently been in the hospital. I started him on vancomycin and cefepime for a possible healthcare associated pneumonia. He is not hypoxemic. Will monitor closely. Sputum culture pending. (2) Pleuritic chest pain Is this a current diagnosis for this admission?: Yes Plan: Pain is fairly severe with coughing moving and deep inspiration. He has a hydromorphone allergy but states he can take morphine without difficulty. I started him on 2 mg of IV morphine every 4 hours as needed pain 3-5. (3) Hypertension Is this a current diagnosis for this admission?: Yes Plan: Patient is hypertensive. He is a dialysis patient. I am awaiting his medication reconciliation, his nurse is in the process of completing now. I will start him on his antihypertensives. (4) ESRD (end stage renal disease) on dialysis Is this a current diagnosis for this admission?: Yes Plan: Patient does hemodialysis in the home. Dr. Bell is his toggle press folder and feeder. Dr. Bell has been consulted and the patient will likely need dialysis tomorrow. (5) Hypoglycemia associated with type 2 diabetes mellitus Is this a current diagnosis for this admission?: Yes Plan: Patient has an insulin pump in place which has now been discontinued temporarily. He was hypoglycemic in the 30s and nonresponsive in the ER temporarily. With dextrose ministration the patient's blood sugars recovered to the 200s and he is back to his normal mental status. Until I have his medication reconciliation complete I will start before meals and at bedtime blood glucose monitoring with short acting sliding scale insulin. Diabetic diet. (6) UTI (urinary tract infection) Qualifiers: Urinary tract infection type: acute cystitis Hematuria presence: without hematuria Qualified Code(s): N30.00 - Acute cystitis without hematuria Is this a current diagnosis for this admission?: Yes Plan: UA has evidence of infection. Urine culture pending. The patient is on cefepime and Vanco. Will await blood and urine cultures. - Time Time Spent: 50 to 70 Minutes Anticipated discharge: Home - Inpatient Certification Based on my medical assessment, after consideration of the patient's comorbidities, presenting symptoms, or acuity I expect that the services needed warrant INPATIENT care.: Yes I certify that my determination is in accordance with my understanding of Medicare's requirements for reasonable and necessary INPATIENT services [42 CFR 412.3e].: Yes Medical Necessity: Significant Comorbidiites Make Outpatient Treatment Too Risky , Need Close Monitoring Due to Risk of Patient Decompensation, Need for IV Antibiotics, Risk of Complication if Not Cared For in Hospital
[2018-06-07] MEDS ORDERED: TRAMADOL HCL 50 MG TABLET PO PRN (18:23)
[2018-06-07] MEDS ORDERED: CYCLOBENZAPRINE HCL 10 MG TABLET PO PRN (18:23)
[2018-06-07] MEDS ORDERED: MORPHINE SULFATE 10 MG/ML INJ ONE (18:40)
[2018-06-07] MEDS ORDERED: GLUCAGON,HUMAN RECOMB 1 MG INJ IM PRN (18:42)
[2018-06-07] MEDS: INSULIN LISPRO 100 UNIT/ML 3 ML VIAL SUBCUT PRN ×2 (19:38→21:42)
--- NOTE | 2018-06-07 19:45 | EKG REPORT ---
SEVERITY:- BORDERLINE ECG - SINUS RHYTHM BORDERLINE T ABNORMALITIES, INFERIOR LEADS : Confirmed by: Marjorie Aelgre MD 07-Jun-2018 19:45:04
[2018-06-07] MEDS ORDERED: CARVEDILOL 12.5 MG TABLET PO ONE (20:00)
[2018-06-07] MEDS ORDERED: GABAPENTIN 300 MG CAPSULE PO ONE (20:15)
[2018-06-07] MEDS ORDERED: FAMOTIDINE INJ/PF 20 MG/2 ML SDV IV ONE (20:30)
[2018-06-07] MEDS ORDERED: VANCOMYCIN HCL 1,000 MG in DEXTROSE 5%-WATER 250 ML IV ONE (20:30)
[2018-06-07] MEDS ORDERED: VANCOMYCIN HCL INJ 1000 MG VIAL ONE (20:56)
[2018-06-07] MEDS ORDERED: FERRIC CITRATE PO ONE (21:00)
[2018-06-07] MEDS ORDERED: FERROUS SULFATE 325 MG TABLET PO ONE (21:00)
[2018-06-07] MEDS ORDERED: AMLODIPINE BESYLATE 10 MG TABLET PO ONE (21:15)
[2018-06-07] MEDS: HEPARIN SOD (PORCINE) 5,000 UNIT/ML 1 ML SYRINGE SUBCUT SCH (21:27)
[2018-06-07] MEDS: HYDRALAZINE HCL INJ/PF 20 MG/1 ML SDV IV PRN (21:42)
[2018-06-07] MEDS ORDERED: DULOXETINE HCL 30 MG CAPSULE.DR PO SCH (22:00)
[2018-06-07] MEDS ORDERED: CEFEPIME 2 GM/D5W RTU 50 ML IV SCH (22:00)
[2018-06-08] MEDS: MORPHINE SULFATE 10 MG/ML INJ IV PRN ×2 (02:59→11:00)
[2018-06-08] MEDS ORDERED: LORAZEPAM INJ 2 MG/1 ML VIAL ONE (04:45)
[2018-06-08] MEDS ORDERED: LORAZEPAM INJ 2 MG/1 ML VIAL IV ONE (05:00)
[2018-06-08] MEDS: HEPARIN SOD (PORCINE) 5,000 UNIT/ML 1 ML SYRINGE SUBCUT SCH (05:19)
[2018-06-08 05:41] LABS: HEMOGLOBIN 11.3 g/dL (13.5-17.0); MEAN CORPUSCULAR HEMOGLOBIN 33.1 pg (27.0-33.4); MEAN CORPUSCULAR HGB CONC 34.2 g/dL (32.0-36.0); MEAN CORPUSCULAR VOLUME 97 fl (80-97); PLATELET COUNT 218 10^3/uL (150-450); RED BLOOD COUNT 3.41 10^6/uL (4.35-5.55); RED CELL DISTRIBUTION WIDTH 14.3 % (11.5-14.0); WHITE BLOOD COUNT 8.7 10^3/uL (4.0-10.5)
[2018-06-08 06:07] LABS: BLOOD UREA NITROGEN 100 mg/dL (7-20); CALCIUM 9.5 mg/dL (8.4-10.2); GLUCOSE 96 mg/dL (75-110); POTASSIUM 5.1 mmol/L (3.6-5.0)
[2018-06-08 06:14] LABS: CARBON DIOXIDE 22 mmol/L (22-30); CHLORIDE 95 mmol/L (98-107); SODIUM 137.2 mmol/L (137-145)
[2018-06-08 06:23] LABS: ANION GAP 20 (5-19)
[2018-06-08 07:02] LABS: CREATINE KINASE MB 6.45 ng/mL (<4.55)
[2018-06-08 07:08] LABS: TROPONIN I 0.265 ng/mL
[2018-06-08] MEDS ORDERED: TRAMADOL HCL 50 MG TABLET PO PRN (07:20)
[2018-06-08] MEDS: FAMOTIDINE INJ/PF 20 MG/2 ML SDV IV SCH ×2 (09:51→22:22)
[2018-06-08] MEDS: LANSOPRAZOLE 15 MG TAB.RAP.DR PO SCH (09:56)
[2018-06-08] MEDS: GABAPENTIN 300 MG CAPSULE PO SCH ×2 (09:57→18:07)
[2018-06-08] MEDS: FERROUS SULFATE 325 MG TABLET PO SCH ×3 (09:57→18:07)
[2018-06-08] MEDS: CEFEPIME 1 GM/D5W RTU 1 GM/50 ML RTUPB IV SCH (09:57)
[2018-06-08] MEDS: CALCITRIOL 0.25 MCG CAPSULE PO SCH (09:57)
[2018-06-08] MEDS: FOLIC ACID/VITAMIN B COMP W-C CAPSULE PO SCH (09:57)
[2018-06-08] MEDS ORDERED: VIT B COMPLX C PO SCH (10:00)
[2018-06-08] MEDS ORDERED: ZINC PO SCH (10:00)
[2018-06-08] MEDS ORDERED: FOLIC ACID PO SCH (10:00)
[2018-06-08] MEDS ORDERED: CARVEDILOL 12.5 MG TABLET PO SCH (10:00)
[2018-06-08] MEDS: ONDANSETRON 4 MG TAB.RAPDIS PO PRN (10:44)
[2018-06-08 12:11] LABS: CREATINE KINASE MB 6.77 ng/mL (<4.55)
[2018-06-08 12:18] LABS: TROPONIN I 0.37 ng/mL
[2018-06-08] MEDS ORDERED: NITROGLYCERIN 0.4 MG/TAB 25 TAB/BOTTLE SL PRN (12:29)
[2018-06-08] MEDS: INSULIN LISPRO 100 UNIT/ML 3 ML VIAL SUBCUT PRN (13:00)
[2018-06-08] MEDS ORDERED: HEPARIN SOD (PORCINE) 1,000 UNIT/ML 10 ML VIAL IV ONE (13:10)
[2018-06-08 14:12] LABS: ABSOLUTE BASOPHILS # (AUTO) 0.1 10^3/uL (0.0-0.2); ABSOLUTE EOSINOPHILS # (AUTO) 0.7 10^3/uL (0.0-0.6); ABSOLUTE MONOCYTES (AUTO) 0.6 10^3/uL (0.1-1.4); ABSOLUTE NEUT (AUTO) 7.4 10^3/uL (1.7-8.2); BASOPHILS % (AUTO) 1.4 % (0-2); EOSINOPHILS % (AUTO) 6.7 % (0-6); HEMATOCRIT 33.8 % (37.9-51.0); HEMOGLOBIN 11.5 g/dL (13.5-17.0); LYMPHOCYTES % (AUTO) 10.3 % (13-45); MEAN CORPUSCULAR HEMOGLOBIN 33.4 pg (27.0-33.4); MEAN CORPUSCULAR HGB CONC 34.1 g/dL (32.0-36.0); MEAN CORPUSCULAR VOLUME 98 fl (80-97); MONOCYTES % (AUTO) 6.5 % (3-13); PLATELET COUNT 218 10^3/uL (150-450); RED BLOOD COUNT 3.45 10^6/uL (4.35-5.55); RED CELL DISTRIBUTION WIDTH 14.4 % (11.5-14.0); SEGMENTED NEUTROPHILS % (AUTO) 75.1 % (42-78); TOTAL CELLS COUNTED % (AUTO) 100 %; WHITE BLOOD COUNT 9.9 10^3/uL (4.0-10.5)
[2018-06-08 14:19] LABS: INTERNATIONAL RATION (INR) 1.06; PROTHROMBIN TIME 14.3 SEC (11.4-15.4)
[2018-06-08 14:20] LABS: PARTIAL THROMBOPLASTIN TIME 37.6 SEC (23.5-35.8)
[2018-06-08] MEDS: HEPARIN SODIUM,PORCINE/D5W 25,000 UNIT/250 ML RTUINJ IV PRN (14:41)
[2018-06-08] MEDS ORDERED: HEPARIN SOD (PORCINE) 1,000 UNIT/ML 10 ML VIAL IV PRN (15:35)
--- NOTE | 2018-06-08 16:01 | PDOC PROGRESS REPORT ---
Subjective Progress Note for:: 06/08/18 Subjective:: No adverse events overnight. He was complaining of some right lateral chest pain and a troponin was checked and it was elevated. Initial troponin was slightly elevated, not remarkably so considering his degree of renal impairment , but the second 1 was much more elevated, and so a third was checked. It was elevated even more than the second. He was started on the ACS protocol and cardiology been consulted. Were moving him to the ICU to do his dialysis there and then he should be able to come back to the floor. Reason For Visit: RLL PNEUMONIA, UTI, ACUTE PAIN, HYPERVOLEMIA Physical Exam Vital Signs: Temp Pulse Resp BP Pulse Ox 97.7 F 89 14 185/98 H 97 06/08/18 11:38 06/08/18 11:38 06/08/18 11:38 06/08/18 11:38 06/08/18 11:38 Intake & Output 06/07/18 06/08/18 06/09/18 06:59 06:59 06:59 Intake Total 800 50 Output Total 250 Balance 800 -200 Weight 119.4 kg General appearance: PRESENT: no acute distress, cooperative, disheveled, morbidly obese Respiratory exam: PRESENT: decreased breath sounds - Right base, unlabored. ABSENT: accessory muscle use, rales, rhonchi, tachypnea, wheezes Cardiovascular exam: PRESENT: RRR, +S1, +S2. ABSENT: diastolic murmur, systolic murmur GI/Abdominal exam: PRESENT: normal bowel sounds, soft. ABSENT: ascites, distended, guarding, rebound, tenderness Extremities exam: PRESENT: full ROM, +1 edema - Tense edema in the extremities Musculoskeletal exam: PRESENT: normal inspection. ABSENT: deformity Neurological exam: PRESENT: alert, awake, oriented to person, oriented to place , oriented to time Psychiatric exam: PRESENT: appropriate affect, normal mood Results Laboratory Results: 06/08/18 13:43 06/08/18 05:17 06/08/18 06/08/18 06/08/18 05:17 05:17 05:17 WBC 8.7 RBC 3.41 L Hgb 11.3 L Hct 33.0 L MCV 97 MCH 33.1 MCHC 34.2 RDW 14.3 H Plt Count 218 Seg Neutrophils % Lymphocytes % Monocytes % Eosinophils % Basophils % Absolute Neutrophils Absolute Lymphocytes Absolute Monocytes Absolute Eosinophils Absolute Basophils Sodium 137.2 Potassium 5.1 H Chloride 95 L Carbon Dioxide 22 Anion Gap 20 H BUN 100 H Creatinine 17.12 H Est GFR ( Amer) 4 L Est GFR (Non-Af Amer) 3 L Glucose 96 Calcium 9.5 TSH 1.90 06/08/18 13:43 WBC 9.9 RBC 3.45 L Hgb 11.5 L Hct 33.8 L MCV 98 H MCH 33.4 MCHC 34.1 RDW 14.4 H Plt Count 218 Seg Neutrophils % 75.1 Lymphocytes % 10.3 L Monocytes % 6.5 Eosinophils % 6.7 H Basophils % 1.4 Absolute Neutrophils 7.4 Absolute Lymphocytes 1.0 Absolute Monocytes 0.6 Absolute Eosinophils 0.7 H Absolute Basophils 0.1 Sodium Potassium Chloride Carbon Dioxide Anion Gap BUN Creatinine Est GFR ( Amer) Est GFR (Non-Af Amer) Glucose Calcium TSH 06/08/18 06/08/18 06/08/18 05:17 05:17 05:17 Creatine Kinase 187 H CK-MB (CK-2) 6.45 H Troponin I 0.265 NT-Pro-B Natriuret Pep 17454 H 06/08/18 06/08/18 06/08/18 11:21 11:21 13:56 Creatine Kinase 185 H CK-MB (CK-2) 6.77 H Troponin I 0.370 0.315 NT-Pro-B Natriuret Pep Impressions: Chest X-Ray 06/07/18 11:58 IMPRESSION: NO ACUTE RADIOGRAPHIC FINDING IN THE CHEST. Abdomen/Pelvis CT 06/07/18 13:49 IMPRESSION: Small patchy airspace opacities in the right lower lobe. No acute findings in the abdomen. Assessment & Plan - Diagnosis (1) Non-ST elevation NC (NSTEMI) Is this a current diagnosis for this admission?: Yes Plan: 2 successive troponins have trended up from an initially near normal troponin. Will start on ACS protocol with aspirin, statin, and a heparin drip. Cardiology been consulted. Echocardiogram is been ordered. (2) ESRD (end stage renal disease) on dialysis Is this a current diagnosis for this admission?: Yes Plan: Nephrology has been consulted for hemodialysis (3) Right lower lobe pneumonia Qualifiers: Pneumonia type: due to unspecified organism Qualified Code(s): J18.1 - Lobar pneumonia, unspecified organism Is this a current diagnosis for this admission?: Yes Plan: Currently on IV antibiotics. Cultures are pending. - Time Time Spent with patient: 35 or more minutes
[2018-06-08 17:45] LABS: CREATINE KINASE MB 6.71 ng/mL (<4.55)
[2018-06-08 17:48] LABS: TROPONIN I 0.296 ng/mL
--- NOTE | 2018-06-08 17:58 | XCELERA REPORT ---
[address] [address] Transthoracic Echocardiogram Report Name: PEPE SOLIZ Age: 37 yrs Gender: Male : 1980 Patient Status: Inpatient Patient Location: [address] [place] [address] Study Date: 06/08/2018 02:46 PM Height: 71 in Weight: 263 lb BSA: 2.4 m2 Procedure: A complete two-dimensional transthoracic echocardiogram was performed (2D, M-mode, spectral and color flow Doppler). The study was technically difficult with many images being suboptimal in quality. Reason For Study: LV Function, size, wall thickness,Valve Function Ordering Physician: ILEANA GILES Performed By: Mandi Morales Interpretation Summary LV EF is 50% Left ventricular systolic function is borderline reduced. There is mild concentric left ventricular hypertrophy. The left ventricle is grossly normal size. Doppler measurements suggest pseudonormalized left ventricular relaxation, which is associated with grade II/IV or mild to moderate diastolic dysfunction Regional wall motion abnormalities cannot be excluded due to limited visualization. The right ventricular systolic function is normal. The left atrium is mildly dilated. The right atrium is normal in size There is a trace amount of mitral regurgitation There is no mitral valve stenosis. No aortic regurgitation is present. There is no aortic valve stenosis There is a trace or physiologic amount of tricuspid regurgitation Tricuspid regurgitation jet envelope not well defined to measure RV systolic pressure accurately. The aortic root is not well visualized. The inferior vena cava was not well visualized There is no pericardial effusion. MMode/2D Measurements & Calculations RVDd: 2.9 cm LVIDd: 5.3 cm FS: 24.3 % Ao root diam: 2.8 cm IVSd: 1.0 cm LVIDs: 4.0 cm EDV(Teich): 136.8 ml Ao root area: 6.4 cm2 LVPWd: 1.0 cm ESV(Teich): 71.3 ml LA dimension: 4.1 cm EF(Teich): 47.9 % LVOT diam: 2.0 cm LVOT area: 3.2 cm2 Doppler Measurements & Calculations MV E max angelo: MV P1/2t max angelo: Ao V2 max: LV V1 max P.2 cm/sec 94.7 cm/sec 175.9 cm/sec 3.7 mmHg MV A max angelo: MV P1/2t: 57.5 msec Ao max PG: LV V1 max: 101.2 cm/sec MVA(P1/2t): 3.8 cm2 12.4 mmHg 96.7 cm/sec MV E/A: 1.0 MV dec slope: DERRICK(V,D): 1.8 cm2 482.2 cm/sec2 MV dec time: 0.18 sec PA V2 max: TR max angelo: MV P1/2t-pr_phl: 135.7 cm/sec 281.2 cm/sec 57.5 msec PA max P.4 mmHg TR max P.6 mmHg Left Ventricle The left ventricle is grossly normal size. There is mild concentric left ventricular hypertrophy. Left ventricular systolic function is borderline reduced. LV EF is 50%. Doppler measurements suggest pseudonormalized left ventricular relaxation, which is associated with grade II/IV or mild to moderate diastolic dysfunction. Regional wall motion abnormalities cannot be excluded due to limited visualization. Right Ventricle The right ventricle is grossly normal size. There is normal right ventricular wall thickness. The right ventricular systolic function is normal. Atria The right atrium is normal in size. The left atrium is mildly dilated. Interarterial septum not well visualized and not well dopplered. Cannot comment on ASD/PFO presence. Mitral Valve The mitral valve leaflets are sclerotic, but show no functional abnormalities. There is no mitral valve stenosis. There is a trace amount of mitral regurgitation. Aortic Valve The aortic valve is not well visualized secondary to technical limitations. There is no aortic valve stenosis. No aortic regurgitation is present. Tricuspid Valve The tricuspid valve is not well visualized, but is grossly normal. There is no tricuspid stenosis. There is a trace or physiologic amount of tricuspid regurgitation. Tricuspid regurgitation jet envelope not well defined to measure RV systolic pressure accurately. Pulmonic Valve The pulmonic valve is not well visualized. Great Vessels The aortic root is not well visualized. The inferior vena cava was not well visualized. Effusions There is no pericardial effusion. Incidental Findings Pacemaker wire noted. : ILEANA GILES > Brandy Zaldivar
--- NOTE | 2018-06-08 20:48 | PDOC CONSULTATION ---
Consultation Consult Date: 06/08/18 Attending physician:: ELIUD CHIU Consult reason:: Positive troponin I History of Present Illness Admission Date/PCP: 06/07/18 16:47 MOLLY NOEL Patient complains of: Right-sided chest pain History of Present Illness: PEPE SOLIZ is a 37 year old male with type 1 diabetes, end-stage kidney disease recently accepted for transplant, who uses hemodialysis at home. He was seen in the ER 2 weeks ago and diagnosed with urinary tract infection and has just completed a dose of Keflex. He states that a day or 2 after he finished the Keflex he started to have right flank and right lateral chest pain. The discomfort has become worse and worse and then today it was so bad that he came into the ER. Yesterday he had a slight fever. No shortness of breath or cough. No sputum production. Is admitted to the hospitalist for evaluation for source of pain, patient likely has right lung pneumonia and urinary tract infection. Patient gives history of recent heart catheterization in the month of December at [facility] which he claims showed no CAD. This was performed in preparation for candidacy regarding renal transplant procedure. Patient denied any central chest pain. Past Medical History Cardiac Medical History: Reports: Congestive Heart Failure Pulmonary Medical History: Reports: Pneumonia EENT Medical History: Reports: Eyes Neurological Medical History: Denies: Ischemic CVA, Seizures Endocrine Medical History: Reports: Diabetes Mellitus Type 1 Renal/ Medical History: Reports: End Stage Renal Disease Malignancy Medical History: Reports: None GI Medical History: Denies: Hepatitis Musculoskeltal Medical History: Denies: Fibromyalgia Skin Medical History: Denies: Eczema, Psoriasis Psychiatric Medical History: Denies: Alcohol Dependency, Depression, Substance Abuse, Tobacco Dependency Traumatic Medical History: Reports: None Hematology: Reports: Anemia Infectious Medical History: Reports: None Past Surgical History Past Surgical History: Reports: Cardiac Catheterization, Internal Defibrillator , Vascular Surgery - fistula Social History Information Source: Patient Smoking Status: Never Smoker Frequency of Alcohol Use: None Hx Recreational Drug Use: No Drugs: None Hx Prescription Drug Abuse: No - Advance Directive Resuscitation Status: Full Code Family History Family History: Hypertension Parental Family History Reviewed: Yes Children Family History Reviewed: Yes Sibling(s) Family History Reviewed.: Yes Medication/Allergy Home Medications: Carvedilol 12.5 mg PO Q12 01/17/18 Cyclobenzaprine HCl 50 mg PO QHS PRN 01/17/18 Ferric Citrate [Auryxia] 630 mg PO AC 01/17/18 Gabapentin 300 mg PO Q12 01/17/18 Vit B Complx C/Folic Acid/Zinc [Renaplex Tablet] 1 each PO DAILY 01/17/18 Calcitriol 2 tab PO DAILY 06/07/18 Duloxetine HCl 30 mg PO QHS 06/07/18 Omeprazole 20 mg PO DAILY 06/07/18 Ferric Citrate [Auryxia] 210 mg PO .SNACKS PRN 06/08/18 Insulin Aspart [Novolog Insulin (Aspart) 100 unit/mL] 100 units SQ .PUMP Ondansetron [Zofran Odt 4 mg Tablet] 4 mg SL BIDP PRN 06/08/18 Tramadol HCl [Ultram 50 mg Tablet] 50 mg PO Q12 06/08/18 Allergies/Adverse Reactions: hydromorphone [From Dilaudid] Adverse Reaction (Verified 06/07/18 11:28) Review of Systems Review of Systems: Please see history of present illness and past medical history as wall. Constitutional: No fever or chills reported. Head : No recent chronic headaches, recent head injury. Eyes: No recent eye pain, diplopia, redness, discharge, acute visual changes. Ears: No recent chronic ear pain, acute hearing loss, ear discharge. Oral cavity: No recent ulcerations, bleeding, oral cavity discomfort. Neck: No recent acute neck pain reported. Hematologic: No recent easy bruising or bleeding. Lymphatic: No recent lymph node enlargement reported. Cardiovascular system review: See history of present illness. Respiratory system review: No hemoptysis or blood clots in the lungs reported. Mild Shortness of breath on exertion Gastrointestinal system review: Negative for any recent acute hematemesis, melena. Genitourinary system review: History of end-stage renal disease. Skin system review: Negative for any recent abnormal bruising, no rash, no pruritus reported. Neurologic: No prior history of strokes, mini strokes, seizure disorder. Patient gives history of loud snoring. He has a previous history of sleep apnea syndrome. Psychologic: No history of major psychosis or major depression reported. Musculoskeletal: Minor aches and pains reported. No acute joint swelling reported. Endocrine: No recent polyuria, polydipsia, recent heat or cold intolerance. Physical Exam Vital Signs: Temp Pulse Resp BP Pulse Ox 97.5 F 88 15 158/85 H 98 06/08/18 15:45 06/08/18 15:45 06/08/18 15:45 06/08/18 15:45 06/08/18 15:45 Intake & Output 06/07/18 06/08/18 06/09/18 06:59 06:59 06:59 Intake Total 800 350 Output Total 300 Balance 800 50 Weight 119.4 kg Exam: GENERAL: well-nourished and in no acute distress. Alert and oriented x3 HEAD: Atraumatic, normocephalic. EYES: Pupils equal round and reactive to light, extraocular movements intact, sclera anicteric, conjunctiva are normal. ENT: TMs normal, nares patent, oropharynx clear without exudates. Moist mucous membranes. No oral ulcerations or bleeding gums noted NECK: supple without lymphadenopathy. Trachea is central. No cervical or axillary lymphadenopathy noted. Carotids are 2+, JVD WNL LUNGS: Respiration seems nonlabored, no significant accessory muscle action noted. Right basal crackles are noted. No wheezes rales or rhonchi noted. No significant dullness noted on percussion. CHEST: Palpation of the chest wall shows no significant chest wall tenderness. HEART: [place] [employer], No PSH, 1/6 KATELYN aortic area, 1/6 kevin systolic murmur mitral area, no rubs, no gallops. ABDOMEN: Soft, no significant tenderness appreciated, normoactive bowel sounds. No guarding, no rebound. No rigidity noted . No masses appreciated. EXTREMITIES: Pedal pulses are 1-2+, no calf tenderness noted. No clubbing or cyanosis. negative pedal edema noted NEUROLOGICAL: Focused neurological exam showed no significant neurologic deficit. Normal speech, no focal weakness appreciated. PSYCH: Normal mood, normal affect. Judgment and insight within normal limits. SKIN: No significant ecchymosis, skin is noted to be warm. MUSCULOSKELETAL EXAM: No significant acute joint swelling noted. Results Laboratory Results: 06/08/18 13:43 06/08/18 05:17 06/08/18 06/08/18 06/08/18 05:17 05:17 05:17 WBC 8.7 RBC 3.41 L Hgb 11.3 L Hct 33.0 L MCV 97 MCH 33.1 MCHC 34.2 RDW 14.3 H Plt Count 218 Seg Neutrophils % Lymphocytes % Monocytes % Eosinophils % Basophils % Absolute Neutrophils Absolute Lymphocytes Absolute Monocytes Absolute Eosinophils Absolute Basophils Sodium 137.2 Potassium 5.1 H Chloride 95 L Carbon Dioxide 22 Anion Gap 20 H BUN 100 H Creatinine 17.12 H Est GFR ( Amer) 4 L Est GFR (Non-Af Amer) 3 L Glucose 96 Calcium 9.5 TSH 1.90 06/08/18 13:43 WBC 9.9 RBC 3.45 L Hgb 11.5 L Hct 33.8 L MCV 98 H MCH 33.4 MCHC 34.1 RDW 14.4 H Plt Count 218 Seg Neutrophils % 75.1 Lymphocytes % 10.3 L Monocytes % 6.5 Eosinophils % 6.7 H Basophils % 1.4 Absolute Neutrophils 7.4 Absolute Lymphocytes 1.0 Absolute Monocytes 0.6 Absolute Eosinophils 0.7 H Absolute Basophils 0.1 Sodium Potassium Chloride Carbon Dioxide Anion Gap BUN Creatinine Est GFR ( Amer) Est GFR (Non-Af Amer) Glucose Calcium TSH 06/08/18 06/08/18 06/08/18 05:17 05:17 05:17 Creatine Kinase 187 H CK-MB (CK-2) 6.45 H Troponin I 0.265 NT-Pro-B Natriuret Pep [id number] H 06/08/18 06/08/18 06/08/18 11:21 11:21 13:56 Creatine Kinase 185 H CK-MB (CK-2) 6.77 H Troponin I 0.370 0.315 NT-Pro-B Natriuret Pep 06/08/18 06/08/18 06/08/18 17:05 17:05 19:00 Creatine Kinase 178 H CK-MB (CK-2) 6.71 H Troponin I 0.296 0.370 NT-Pro-B Natriuret Pep Impressions: Chest X-Ray 06/07/18 11:58 IMPRESSION: NO ACUTE RADIOGRAPHIC FINDING IN THE CHEST. Abdomen/Pelvis CT 06/07/18 13:49 IMPRESSION: Small patchy airspace opacities in the right lower lobe. No acute findings in the abdomen. Assessment & Plan - Diagnosis (1) Chest pain Qualifiers: Chest pain type: unspecified Qualified Code(s): R07.9 - Chest pain, unspecified Is this a current diagnosis for this admission?: Yes (2) ESRD (end stage renal disease) on dialysis Is this a current diagnosis for this admission?: Yes (3) Hypertension Qualifiers: Hypertension type: essential hypertension Qualified Code(s): I10 - Essential (primary) hypertension Is this a current diagnosis for this admission?: Yes (4) Non-ST elevation [place] (NSTEMI) Is this a current diagnosis for this admission?: Yes (5) Pleuritic chest pain Is this a current diagnosis for this admission?: Yes (6) Right lower lobe pneumonia Qualifiers: Pneumonia type: due to unspecified organism Qualified Code(s): J18.1 - Lobar pneumonia, unspecified organism Is this a current diagnosis for this admission?: Yes - Notes Notes: Chest pain: Pleuritic in nature. Since patient's recent heart cath showed no significant disease, will recommend obtaining a CTA of the chest to rule out pulmonary embolism, pericarditis etc. 2D echo did show a small pericardial effusion. Agree with treating in the meantime as acute coronary syndrome and non-STEMI. Positive troponin I: This is in the non-STEMI range. Non-STEMI: We will repeat EKG. Recommend aspirin, heparin, beta blockers, YULIYA inhibitor/ARB, hypotensive statin. Currently patient has atypical chest pain which is pleuritic. Hypertension: Patient noted to have severe elevation of blood pressure. Good control of blood pressure will help. Right lower lobe pneumonia: Continue with antibiotic therapy. - Time Time Spent: 50 to 70 Minutes - More than 50% of the time spent coordinating care , discussing management plans with involved caregivers. Management plans discussed with involved personnels. Medical decision making was of moderate to high complexity, patient's has multiple comorbidities. Dr. Alegre to follow tomorrow Medications reviewed and adjusted accordingly: Yes
[2018-06-08] MEDS: CARVEDILOL 12.5 MG TABLET PO SCH (22:25)
[2018-06-08] MEDS: ATORVASTATIN CALCIUM 80 MG TABLET PO SCH (22:25)
[2018-06-09] MEDS: MORPHINE SULFATE 10 MG/ML INJ IV PRN ×2 (00:03→10:35)
[2018-06-09] MEDS: HYDRALAZINE HCL INJ/PF 20 MG/1 ML SDV IV PRN ×3 (04:43→20:09)
[2018-06-09 05:28] LABS: HEMATOCRIT 34.1 % (37.9-51.0); HEMOGLOBIN 11.7 g/dL (13.5-17.0); MEAN CORPUSCULAR HEMOGLOBIN 33.3 pg (27.0-33.4); MEAN CORPUSCULAR HGB CONC 34.3 g/dL (32.0-36.0); MEAN CORPUSCULAR VOLUME 97 fl (80-97); PLATELET COUNT 213 10^3/uL (150-450); RED BLOOD COUNT 3.52 10^6/uL (4.35-5.55); RED CELL DISTRIBUTION WIDTH 14.7 % (11.5-14.0); WHITE BLOOD COUNT 7.3 10^3/uL (4.0-10.5)
[2018-06-09] MEDS: LANSOPRAZOLE 15 MG TAB.RAP.DR PO SCH (05:29)
[2018-06-09 06:07] LABS: ANION GAP 15 (5-19); CALCIUM 9.1 mg/dL (8.4-10.2); CARBON DIOXIDE 26 mmol/L (22-30); CHLORIDE 95 mmol/L (98-107); CHOLESTEROL 243.16 mg/dL (0-200); GLUCOSE 370 mg/dL (75-110); SODIUM 136.2 mmol/L (137-145); TRIGLYCERIDES 198 mg/dL (<150)
[2018-06-09 06:18] LABS: DIRECT LDL 135 mg/dL (<100)
[2018-06-09 06:25] LABS: VLDL CHOLESTEROL 39.6 mg/dL (10-31)
[2018-06-09 06:26] LABS: BLOOD UREA NITROGEN 58 mg/dL (7-20)
[2018-06-09 06:28] LABS: POTASSIUM 6.4 mmol/L (3.6-5.0)
[2018-06-09] MEDS ORDERED: SODIUM POLYSTYRENE SULFONATE 15 GM/60 ML PO ONE (06:45)
--- NOTE | 2018-06-09 07:49 | EKG REPORT ---
SEVERITY:- ABNORMAL ECG - SINUS RHYTHM ABNRM R PROG, CONSIDER ASMI OR LEAD PLACEMENT : Confirmed by: Brady Cooper MD 09-Jun-2018 07:49:17
--- NOTE | 2018-06-09 07:51 | EKG REPORT ---
SEVERITY:- ABNORMAL ECG - SINUS RHYTHM LEFT VENTRICULAR HYPERTROPHY NO ACUTE CHANGE : Confirmed by: Brady Cooper MD 09-Jun-2018 07:49:56
[2018-06-09] MEDS ORDERED: AMLODIPINE BESYLATE 5 MG TABLET PO ONE (08:53)
[2018-06-09] MEDS: ASPIRIN 325 MG TABLET, ENT COATED PO SCH (09:40)
[2018-06-09] MEDS: GABAPENTIN 300 MG CAPSULE PO SCH ×2 (09:40→17:34)
[2018-06-09] MEDS: CALCITRIOL 0.25 MCG CAPSULE PO SCH (09:40)
[2018-06-09] MEDS: FERROUS SULFATE 325 MG TABLET PO SCH ×3 (09:40→17:34)
[2018-06-09] MEDS: CARVEDILOL 12.5 MG TABLET PO SCH ×2 (09:40→22:43)
[2018-06-09] MEDS: FOLIC ACID/VITAMIN B COMP W-C CAPSULE PO SCH (09:40)
[2018-06-09] MEDS: CEFEPIME 1 GM/D5W RTU 1 GM/50 ML RTUPB IV SCH (09:41)
[2018-06-09] MEDS: INSULIN LISPRO 100 UNIT/ML 3 ML VIAL SUBCUT PRN ×3 (09:48→23:08)
[2018-06-09] MEDS ORDERED: AMLODIPINE BESYLATE 5 MG TABLET PO SCH (10:00)
--- NOTE | 2018-06-09 11:07 | PDOC CONSULTATION ---
Consultation Consult Date: 06/08/18 History of Present Illness Admission Date/PCP: 06/07/18 16:47 MOLLY NOEL History of Present Illness: PEPE SOLIZ is a 37 year old male with type 1 diabetes, end-stage kidney disease on home hemodialysis, past history of recent heart cath that was clean. He came in yesterday complaining of right flank pain and right lateral chest pain. He was seen in the ER 2 weeks ago and diagnosed with urinary tract infection and has just completed a dose of Keflex. The flank pain and chest pain started a day or 2 after finishing the keflex. The discomfort has become worse and worse and then yesterday he decided to go to the ER. In the ER he was found to a possible lower lobe pneumonia found on CT and UTI found on UA. The kidneys showed no signs of hydronephrosis or kidney stones. Troponin was also slightly elevated and continued to elevate over the past day. At the time of examination his chest pain had improved. It was reproducible upon touch and felt worse when he took a deep breath. He described it as a stabbing pain. He denied nausea or vomiting. Only recent fever he had was a day before admission. Patient seen on dialysis. He is undergoing dialysis without any issues currently. Patient is awake alert and oriented. Patient denies worsening chest pain with dialysis. Labs and medications were reviewed with the patient. Past Medical History Pulmonary Medical History: Reports: Pneumonia EENT Medical History: Reports: Eyes Neurological Medical History: Denies: Ischemic CVA, Seizures Endocrine Medical History: Reports: Diabetes Mellitus Type 1 Complications of Diabetes: Reports: None Renal/ Medical History: Reports: End Stage Renal Disease Malignancy Medical History: Reports: None GI Medical History: Denies: Hepatitis Musculoskeltal Medical History: Denies: Fibromyalgia Skin Medical History: Denies: Eczema, Psoriasis Psychiatric Medical History: Denies: Alcohol Dependency, Depression, Substance Abuse, Tobacco Dependency Traumatic Medical History: Reports: None Infectious Medical History: Reports: None Past Surgical History Past Surgical History: Reports: Vascular Surgery - fistula Social History Smoking Status: Never Smoker Frequency of Alcohol Use: None Hx Recreational Drug Use: No Drugs: None Hx Prescription Drug Abuse: No - Advance Directive Resuscitation Status: Full Code Family History Parental Family History Reviewed: No Children Family History Reviewed: NA Sibling(s) Family History Reviewed.: NA Medication/Allergy Home Medications: Carvedilol 12.5 mg PO Q12 05/26/18 Cyclobenzaprine HCl 50 mg PO QHS PRN 01/17/18 Ferric Citrate [Auryxia] 630 mg PO AC 01/17/18 Gabapentin 300 mg PO Q12 01/17/18 Vit B Complx C/Folic Acid/Zinc [Renaplex Tablet] 1 each PO DAILY 01/17/18 Calcitriol 2 tab PO DAILY 06/07/18 Duloxetine HCl 30 mg PO QHS 06/07/18 Omeprazole 20 mg PO DAILY 06/07/18 Ferric Citrate [Auryxia] 210 mg PO .SNACKS PRN 06/08/18 Insulin Aspart [Novolog Insulin (Aspart) 100 unit/mL] 100 units SQ .PUMP Ondansetron [Zofran Odt 4 mg Tablet] 4 mg SL BIDP PRN 06/08/18 Tramadol HCl [Ultram 50 mg Tablet] 50 mg PO Q12 06/08/18 Allergies/Adverse Reactions: hydromorphone [From Dilaudid] Adverse Reaction (Verified 06/07/18 11:28) Review of Systems Constitutional: PRESENT: fever(s). ABSENT: chills, weakness Eyes: ABSENT: visual disturbances Cardiovascular: PRESENT: chest pain. ABSENT: dyspnea on exertion, edema, orthropnea, palpitations Respiratory: PRESENT: cough. ABSENT: dyspnea, sputum Gastrointestinal: ABSENT: constipation, diarrhea, nausea, vomiting Genitourinary: ABSENT: dysuria Musculoskeletal: ABSENT: muscle weakness Neurological: PRESENT: numbness. ABSENT: confusion, dizziness, weakness Physical Exam Vital Signs: Temp Pulse Resp BP Pulse Ox 97.5 F 88 15 158/85 H 98 06/08/18 15:45 06/08/18 15:45 06/08/18 15:45 06/08/18 15:45 06/08/18 15:45 Intake & Output 06/07/18 06/08/18 06/09/18 06:59 06:59 06:59 Intake Total 800 350 Output Total 300 Balance 800 50 Weight 119.4 kg General appearance: PRESENT: no acute distress, well-developed, well-nourished Mouth exam: PRESENT: moist. ABSENT: neck supple Neck exam: PRESENT: full ROM. ABSENT: JVD Respiratory exam: PRESENT: crackles. ABSENT: clear to auscultation jenn, rales, rhonchi, wheezes Cardiovascular exam: PRESENT: RRR, +S1, +S2 GI/Abdominal exam: PRESENT: normal bowel sounds, soft. ABSENT: tenderness Extremities exam: ABSENT: pedal edema, tenderness, +1 edema, +2 edema Musculoskeletal exam: PRESENT: normal inspection. ABSENT: tenderness Neurological exam: PRESENT: alert, awake, oriented to person, oriented to place , oriented to time, oriented to situation Skin exam: PRESENT: dry, intact, warm Results Laboratory Results: 06/08/18 13:43 06/08/18 05:17 06/08/18 06/08/18 06/08/18 05:17 05:17 05:17 WBC 8.7 RBC 3.41 L Hgb 11.3 L Hct 33.0 L MCV 97 MCH 33.1 MCHC 34.2 RDW 14.3 H Plt Count 218 Seg Neutrophils % Lymphocytes % Monocytes % Eosinophils % Basophils % Absolute Neutrophils Absolute Lymphocytes Absolute Monocytes Absolute Eosinophils Absolute Basophils Sodium 137.2 Potassium 5.1 H Chloride 95 L Carbon Dioxide 22 Anion Gap 20 H BUN 100 H Creatinine 17.12 H Est GFR ( Amer) 4 L Est GFR (Non-Af Amer) 3 L Glucose 96 Calcium 9.5 TSH 1.90 06/08/18 13:43 WBC 9.9 RBC 3.45 L Hgb 11.5 L Hct 33.8 L MCV 98 H MCH 33.4 MCHC 34.1 RDW 14.4 H Plt Count 218 Seg Neutrophils % 75.1 Lymphocytes % 10.3 L Monocytes % 6.5 Eosinophils % 6.7 H Basophils % 1.4 Absolute Neutrophils 7.4 Absolute Lymphocytes 1.0 Absolute Monocytes 0.6 Absolute Eosinophils 0.7 H Absolute Basophils 0.1 Sodium Potassium Chloride Carbon Dioxide Anion Gap BUN Creatinine Est GFR ( Amer) Est GFR (Non-Af Amer) Glucose Calcium TSH 06/08/18 06/08/18 06/08/18 05:17 05:17 05:17 Creatine Kinase 187 H CK-MB (CK-2) 6.45 H Troponin I 0.265 NT-Pro-B Natriuret Pep [id number] H 06/08/18 06/08/18 06/08/18 11:21 11:21 13:56 Creatine Kinase 185 H CK-MB (CK-2) 6.77 H Troponin I 0.370 0.315 NT-Pro-B Natriuret Pep 06/08/18 06/08/18 17:05 17:05 Creatine Kinase 178 H CK-MB (CK-2) 6.71 H Troponin I 0.296 NT-Pro-B Natriuret Pep Impressions: Chest X-Ray 06/07/18 11:58 IMPRESSION: NO ACUTE RADIOGRAPHIC FINDING IN THE CHEST. Abdomen/Pelvis CT 06/07/18 13:49 IMPRESSION: Small patchy airspace opacities in the right lower lobe. No acute findings in the abdomen. Assessment & Plan - Diagnosis (1) Chest pain Qualifiers: Chest pain type: unspecified Qualified Code(s): R07.9 - Chest pain, unspecified Is this a current diagnosis for this admission?: Yes Plan: Per Dr. Zaldivar Would recommend VQ scan to rule out PE. If CTA is needed, dialysis can be preformed to remove the contrast dye. Use of contrast dye on the patient will most likely cause for a decrease/possibly stop what little urine production his kidneys still have. (2) ESRD (end stage renal disease) on dialysis Is this a current diagnosis for this admission?: Yes Plan: Patient seen on dialysis. He is undergoing dialysis without any issues currently. Patient is awake alert and oriented. Patient denies any history worsening chest pain.. Labs and medications were reviewed with the patient. (3) Hypertension Qualifiers: Hypertension type: essential hypertension Qualified Code(s): I10 - Essential (primary) hypertension Is this a current diagnosis for this admission?: Yes Plan: will see how patients bp reacts to dialysis and fluid removal. Will reassess and see if more bp medications are to be added (4) Non-ST elevation [place] (NSTEMI) Is this a current diagnosis for this admission?: Yes Plan: per Dr. Zaldivar (5) Right flank pain Plan: No sign of hydronephrosis or kidney stone. (6) UTI (urinary tract infection) Qualifiers: Urinary tract infection type: acute cystitis Hematuria presence: without hematuria Qualified Code(s): N30.00 - Acute cystitis without hematuria Is this a current diagnosis for this admission?: Yes Plan: continue on current antibiotics
[2018-06-09] MEDS: ONDANSETRON 4 MG TAB.RAPDIS PO PRN ×2 (12:19→17:47)
[2018-06-09] MEDS ORDERED: DIPHENHYDRAMINE HCL 25 MG/10 ML UDC PO ONE (14:00)
[2018-06-09] MEDS: HEPARIN SODIUM,PORCINE/D5W 25,000 UNIT/250 ML RTUINJ IV PRN (15:27)
--- NOTE | 2018-06-09 17:46 | PDOC PROGRESS REPORT ---
Subjective Progress Note for:: 06/09/18 Subjective:: Still having some intermittent chest discomfort. He had dialysis yesterday and is been feeling pretty poorly today. He reported that this is fairly common for him at home. Apparently they took off 3200 mL's. He was having some itching which he also says is common for him and asked for some Benadryl which is what he uses at home. Reason For Visit: RLL PNEUMONIA, UTI, ACUTE PAIN, HYPERVOLEMIA Physical Exam Vital Signs: Temp Pulse Resp BP Pulse Ox 97.6 F 86 20 172/77 H 96 06/09/18 16:28 06/09/18 16:28 06/09/18 16:28 06/09/18 16:28 06/09/18 16:28 Intake & Output 06/08/18 06/09/18 06/10/18 06:59 06:59 06:59 Intake Total 800 450 298 Output Total 3500 Balance 800 -3050 298 Weight 119.4 kg 107.4 kg General appearance: PRESENT: no acute distress, cooperative, disheveled, morbidly obese Respiratory exam: PRESENT: decreased breath sounds - Right base, unlabored. ABSENT: accessory muscle use, rales, rhonchi, tachypnea, wheezes Cardiovascular exam: PRESENT: RRR, +S1, +S2. ABSENT: diastolic murmur, systolic murmur GI/Abdominal exam: PRESENT: normal bowel sounds, soft. ABSENT: ascites, distended, guarding, rebound, tenderness Extremities exam: PRESENT: full ROM, +1 edema - Tense edema in the extremities Musculoskeletal exam: PRESENT: normal inspection. ABSENT: deformity Neurological exam: PRESENT: alert, awake, oriented to person, oriented to place , oriented to time Psychiatric exam: PRESENT: appropriate affect, normal mood Results Laboratory Results: 06/09/18 05:10 06/09/18 13:31 06/09/18 06/09/18 06/09/18 05:10 05:10 13:31 WBC 7.3 RBC 3.52 L Hgb 11.7 L Hct 34.1 L MCV 97 MCH 33.3 MCHC 34.3 RDW 14.7 H Plt Count 213 Sodium 136.2 L Potassium 6.4 H* D 5.2 H D Chloride 95 L Carbon Dioxide 26 Anion Gap 15 BUN 58 H D Creatinine 12.04 H Est GFR ( Amer) 6 L Est GFR (Non-Af Amer) 5 L Glucose 370 H Calcium 9.1 Triglycerides 198 H Cholesterol 243.16 H LDL Cholesterol Direct 135 H VLDL Cholesterol 39.6 H HDL Cholesterol 44 06/08/18 06/08/18 06/08/18 05:17 05:17 05:17 Creatine Kinase 187 H CK-MB (CK-2) 6.45 H Troponin I 0.265 NT-Pro-B Natriuret Pep [id number] H 06/08/18 06/08/18 06/08/18 11:21 11:21 13:56 Creatine Kinase 185 H CK-MB (CK-2) 6.77 H Troponin I 0.370 0.315 NT-Pro-B Natriuret Pep 06/08/18 06/08/18 06/08/18 17:05 17:05 19:00 Creatine Kinase 178 H CK-MB (CK-2) 6.71 H Troponin I 0.296 0.370 NT-Pro-B Natriuret Pep 06/09/18 06/09/18 00:51 15:27 Creatine Kinase CK-MB (CK-2) Troponin I 0.442 0.374 NT-Pro-B Natriuret Pep Impressions: Chest X-Ray 06/07/18 11:58 IMPRESSION: NO ACUTE RADIOGRAPHIC FINDING IN THE CHEST. Abdomen/Pelvis CT 06/07/18 13:49 IMPRESSION: Small patchy airspace opacities in the right lower lobe. No acute findings in the abdomen. Assessment & Plan - Diagnosis (1) Non-ST elevation [place] (NSTEMI) Is this a current diagnosis for this admission?: Yes Plan: Seen by cardiology, apparently he had a heart cath back in December as part of his workup for his kidney transplant, and there was no evidence of any coronary artery disease at that time. Cardiology did recommend getting a CT of the chest and timing it with his dialysis, and keeping him on the heparin drip until PE can be ruled out. (2) ESRD (end stage renal disease) on dialysis Is this a current diagnosis for this admission?: Yes Plan: Nephrology has been consulted for hemodialysis (3) Right lower lobe pneumonia Qualifiers: Pneumonia type: due to unspecified organism Qualified Code(s): J18.1 - Lobar pneumonia, unspecified organism Is this a current diagnosis for this admission?: Yes Plan: Currently on IV antibiotics. Cultures are pending. (4) Hyperkalemia Is this a current diagnosis for this admission?: Yes Plan: This may have been a spurious value initially this morning. It would have been interesting for his potassium to go up after dialysis. He got some Kayexalate but apparently vomited it back up so I do not think it really had much of an effect. A repeat potassium this afternoon showed that it was 5.2 which is essentially where he was yesterday. Therefore I would call this matter resolved. - Time Time Spent with patient: 25-34 minutes
[2018-06-09] MEDS ORDERED: VANCOMYCIN HCL 1,500 MG in DEXTROSE 5%-WATER 250 ML IV ONE (18:00)
--- NOTE | 2018-06-09 21:10 | Progress Note ---
Provider Note Provider Note: CARDIOLOGY PROGRESS NOTES by Dr. Marjorie Alegre on 06/09/2018. SUBJECTIVE: The patient still has pleuritic chest pain and shortness of breath. But he states is much improved compared to yesterday. He also complains of feeling chills and rigors. The patient is afebrile. There is no arrhythmias seen on the monitor. There is no clear-cut anginal symptoms. The patient denies any PND orthopnea. Note his potassium is elevated and nephrology on board. The patient has no leg edema. The patient does have some orthopnea, but no PND. His blood pressure is also not well controlled. PHYSICAL EXAMINATION: The patient is mildly obese. He is well-groomed. He is in distress due to chest pain which is pleuritic. Selected Entries 06/09/18 12:28 Temperature 97.8 F Temperature Oral Source Pulse Rate 89 Respiratory 18 Rate Blood Pressure 184/84 H Blood Pressure 117 Mean BP Location Right Leg BP Position Supine O2 Sat by Pulse 96 Oximetry Oxygen Delivery Room Air Method HEAD: Is atraumatic normocephalic. EYES: Pupils are equal round regular reactive to light accommodation. Extraocular movements are normal. There is no clinical pallor. There is no scleral icterus. ENT is negative. NECK: Is supple there is no JVD. Carotids are equal there is no bruits. There is no lymphadenopathy. There is no goiter. SKIN: There is no petechia or ecchymosis. There is no skin lesions. LUNGS: There is no accessory muscles of respiration in use. There are a few dry crackles in the right base. There is no rales of CHF. The rest of the lungs are clear. There is no pleural rub. HEART: S1-S2 is heard there is an S4 gallop present there is no S3 gallop there is systolic murmur left sternal border and apex there is no rub. ABDOMEN: Is mildly obese. There is no hepatosplenomegaly. Bowel sounds well heard. There is no tender areas of masses. EXTREMITIES: Femorals are diminished leg pulses well felt. There are no femoral bruits. There is no pedal edema. There is no DVT or cellulitis. There is no signs of clubbing MICROMATIC HONE OPERATOR: The patient is conscious awake alert oriented x3 with no focal deficits. PSYCHIATRIC: Patient's slightly agitated. But his judgment and insight seem to be intact. 10/15/18 10/16/18 10/16/18 19:00 00:51 05:10 WBC 7.3 Hgb 11.7 L Hct 34.1 L MCV 97 Plt Count 213 Sodium Potassium Chloride Carbon Dioxide BUN Creatinine Est GFR ( Amer) Glucose Calcium Troponin I 0.370 0.442 06/09/18 05:10 WBC Hgb Hct MCV Plt Count Sodium 136.2 L Potassium 6.4 H* D Chloride 95 L Carbon Dioxide 26 BUN 58 H D Creatinine 12.04 H Est GFR ( Amer) 6 L Glucose 370 H Calcium 9.1 Troponin I EKG: Shows sinus rhythm. Poor R wave progression anterior leads most likely secondary to lead placement. There is no acute EKG changes. IMPRESSION/RECOMMENDATION: 1. ELEVATED TROPONIN I: This is secondary to the patient's end-stage renal disease, uncontrolled hypertension, and pneumonia. No definite evidence of non- ST elevation NM. Hence would recommend not to treat this as a non-ST elevation NM. Note that the patient december of 2017 had a cardiac catheterization which showed no coronary artery disease of significance. Would recommend unless the patient is positive for pulmonary embolism would recommend converting the heparin to DVT prophylaxis doses. 2. RIGHT LOWER LOBE PNEUMONIA: Would recommend continue antibiotics. 3. ASSESS presence or absence of pulmonary emboli. Would recommend getting a pulmonary CT angiogram. 4. Hypertension: Blood pressure not very well controlled part of this blood pressure being elevated may be because of the patient's distress due to his pleuritic chest pain. 5. Hyperkalemia: Nephrology would be taking care of this. 6. END STAGE RENAL DISEASE: Continue dialysis. 7. DIABETES MELLITUS: Continue control of diabetes. Note that the patient's blood sugars are uncontrolled. Medications reviewed. Discussed with attending physician. Medical decision making is of moderate complexity. 40 minutes spent on patient with more than 50 % of time spent in direct patient care. I feel at present the cardiology status is stable and this chest pain is clearly non-anginal in brackets typical or atypical]. Will sign off the case.
--- NOTE | 2018-06-09 21:18 | PDOC PROGRESS REPORT ---
Subjective Progress Note for:: 06/09/18 Subjective:: I am seeing the patient to cover for Dr. Terry Bell his primary social science professor. Patient continues to have right upper chest pains until the sternal area. It is pretty much pleuritic in nature which he said started last Friday and is constant. His right flank pain has improved according to him. He was treated for UTI with antibiotics a couple weeks ago. He also complains of some nausea and vomiting. Currently he denies any shortness of breath, cough , fever nor leg swelling. Patient has been on home hemodialysis since 2016 and he is doing it to his left upper arm AV graft for times a week. He dialyzes at home last Friday and he was dialyzed here yesterday. His potassium was elevated at 6.4 earlier this morning and the repeat one was 5.2 without any intervention. Patient's blood pressure has been elevated since yesterday. He was started on amlodipine 5 mg this morning by Dr. Bell over the phone. However his blood pressure continues to be elevated. Reason For Visit: RLL PNEUMONIA, UTI, ACUTE PAIN, HYPERVOLEMIA Physical Exam Vital Signs: Temp Pulse Resp BP Pulse Ox 97.7 F 91 16 204/83 H 97 06/09/18 19:28 06/09/18 19:28 06/09/18 19:28 06/09/18 19:28 06/09/18 19:28 Intake & Output 06/08/18 06/09/18 06/10/18 06:59 06:59 06:59 Intake Total 800 450 548 Output Total 3500 575 Balance 800 -3050 -27 Weight 119.4 kg 107.4 kg Exam: General appearance: PRESENT: no acute distress, cooperative, well-developed, well-nourished, he is in pain Head exam: PRESENT: atraumatic, normocephalic Eye exam: PRESENT: conjunctiva pink, PERRLA. ABSENT: scleral icterus Neck exam: ABSENT: JVD Respiratory exam: PRESENT: Normal breath sounds. He has pleuritic reproducible pain on palpation on the right upper part of the chest below the clavicle and upper part of the sternum. ABSENT: crackles, rales, rhonchi, unlabored, wheezes Cardiovascular exam: PRESENT: Regular rate rhythm -+S1, +S2. Grade 2/6 systolic murmur ABSENT: diastolic murmur GI/Abdominal exam: PRESENT: normal bowel sounds, soft. ABSENT: guarding, mass, tenderness Extremities exam: ABSENT: No edema Neurological exam: PRESENT: alert, awake, oriented to person, place and time. Skin exam: PRESENT: dry, warm, Cardiovascular exam: PRESENT: RRR, +S1, +S2 GI/Abdominal exam: PRESENT: normal bowel sounds, soft. ABSENT: tenderness Results Laboratory Results: 06/09/18 05:10 06/09/18 13:31 06/09/18 06/09/18 06/09/18 05:10 05:10 13:31 WBC 7.3 RBC 3.52 L Hgb 11.7 L Hct 34.1 L MCV 97 MCH 33.3 MCHC 34.3 RDW 14.7 H Plt Count 213 Sodium 136.2 L Potassium 6.4 H* D 5.2 H D Chloride 95 L Carbon Dioxide 26 Anion Gap 15 BUN 58 H D Creatinine 12.04 H Est GFR ( Amer) 6 L Est GFR (Non-Af Amer) 5 L Glucose 370 H Calcium 9.1 Triglycerides 198 H Cholesterol 243.16 H LDL Cholesterol Direct 135 H VLDL Cholesterol 39.6 H HDL Cholesterol 44 06/08/18 06/08/18 06/08/18 05:17 05:17 05:17 Creatine Kinase 187 H CK-MB (CK-2) 6.45 H Troponin I 0.265 NT-Pro-B Natriuret Pep 12177 H 06/08/18 06/08/18 06/08/18 11:21 11:21 13:56 Creatine Kinase 185 H CK-MB (CK-2) 6.77 H Troponin I 0.370 0.315 NT-Pro-B Natriuret Pep 06/08/18 06/08/18 06/08/18 17:05 17:05 19:00 Creatine Kinase 178 H CK-MB (CK-2) 6.71 H Troponin I 0.296 0.370 NT-Pro-B Natriuret Pep 06/09/18 06/09/18 00:51 15:27 Creatine Kinase CK-MB (CK-2) Troponin I 0.442 0.374 NT-Pro-B Natriuret Pep Impressions: Chest X-Ray 06/07/18 11:58 IMPRESSION: NO ACUTE RADIOGRAPHIC FINDING IN THE CHEST. Abdomen/Pelvis CT 06/07/18 13:49 IMPRESSION: Small patchy airspace opacities in the right lower lobe. No acute findings in the abdomen. Assessment & Plan - Diagnosis (1) Chest pain Qualifiers: Chest pain type: unspecified Qualified Code(s): R07.9 - Chest pain, unspecified Is this a current diagnosis for this admission?: Yes Plan: Is pleuritic in nature and reproducible. Needs to rule out acute pulmonary embolism is also suggested by Dr. Zaldivar, the salt operator. To preserve the patient's residual kidney function I agreed to do VQ scan first before a CTA. I discussed the difference in the risks to the patient and his through face time. They both agreed to do the VQ scan first tonight. Patient does have elevated troponin and it still continuously going up and was assessed by her salt operator to have NSTEMI. (2) Hypertension Qualifiers: Hypertension type: essential hypertension Qualified Code(s): I10 - Essential (primary) hypertension Is this a current diagnosis for this admission?: Yes Plan: Patient relates that his usual blood pressure runs around 140s over 80s. He said his blood pressure medications has been decrease weeks ago because of hypotensive episodes. He is only on carvedilol. He was started on amlodipine this morning by Dr. Bell. Since his blood pressure still elevated I would increase his carvedilol to 25 mg every 12 hours and the amlodipine 5 mg every 12 hours as well. If the blood pressure still elevated tonight we will also give the patient pain medication as ordered, morphine IV to see if this would help lower down the blood pressure. Continue hydralazine as needed. (3) ESRD (end stage renal disease) on dialysis Is this a current diagnosis for this admission?: Yes Plan: We will plan to do hemodialysis in the ICU tomorrow morning. (4) Non-ST elevation [place] (NSTEMI) Is this a current diagnosis for this admission?: Yes Plan: Patient's troponin still elevated and is continuously rising. Patient just had cardiac catheterization in December which was allegedly clear. Echocardiogram was done and reviewed. Patient currently on heparin drip and is being followed by her salt operator Dr. Zaldivar. (5) Right flank pain Is this a current diagnosis for this admission?: Yes Plan: Improved. (6) UTI (urinary tract infection) Qualifiers: Urinary tract infection type: acute cystitis Hematuria presence: without hematuria Qualified Code(s): N30.00 - Acute cystitis without hematuria Is this a current diagnosis for this admission?: Yes Plan: On antibiotics. Blood cultures so far negative urine culture is also insignificant. I do not think he needs vancomycin. Defer to primary service. - Time Time with patient: Greater than 35 minutes
[2018-06-09] MEDS ORDERED: ONDANSETRON HCL INJ/PF 4 MG/2 ML SDV ONE (22:37)
[2018-06-09] MEDS: FAMOTIDINE INJ/PF 20 MG/2 ML SDV IV SCH (22:40)
[2018-06-09] MEDS: ATORVASTATIN CALCIUM 80 MG TABLET PO SCH (22:40)
[2018-06-09] MEDS: AMLODIPINE BESYLATE 5 MG TABLET PO SCH (22:41)
--- NOTE | 2018-06-09 22:54 | RADIOLOGY REPORT (SQ) ---
EXAM DESCRIPTION: NM LUNG VENTILATION PERFUSION COMPLETED DATE/TME: 06/09/2018 00:00 CLINICAL HISTORY: Severe chest pain, dyspnea COMPARISON: None. Technique: Patient was administered 27.2 mCi technetium 99m DTPA aerosol form. Planar imaging was acquired for the purpose of ventilation. Patient was then administered 5.21 mCi technetium 99m MAA and multiplanar perfusion imaging was acquired. FINDINGS: There is a moderate subsegmental defect in the posterior aspect of the left upper lobe. No additional mismatched defects are noted. IMPRESSION: Low probability for pulmonary embolus
[2018-06-09] MEDS ORDERED: HYDROXYZINE HCL 10 MG TABLET ONE (23:01)
[2018-06-09] MEDS: HYDROXYZINE HCL 10 MG TABLET PO PRN (23:04)
[2018-06-10] MEDS: LANSOPRAZOLE 15 MG TAB.RAP.DR PO SCH (05:44)
[2018-06-10 06:21] LABS: HEMATOCRIT 33.1 % (37.9-51.0); HEMOGLOBIN 11.4 g/dL (13.5-17.0); MEAN CORPUSCULAR HEMOGLOBIN 33.3 pg (27.0-33.4); MEAN CORPUSCULAR HGB CONC 34.4 g/dL (32.0-36.0); MEAN CORPUSCULAR VOLUME 97 fl (80-97); PLATELET COUNT 232 10^3/uL (150-450); RED BLOOD COUNT 3.41 10^6/uL (4.35-5.55); RED CELL DISTRIBUTION WIDTH 14.3 % (11.5-14.0); WHITE BLOOD COUNT 7.9 10^3/uL (4.0-10.5)
[2018-06-10 06:56] LABS: ANION GAP 19 (5-19); BLOOD UREA NITROGEN 66 mg/dL (7-20); CALCIUM 9.4 mg/dL (8.4-10.2); CARBON DIOXIDE 25 mmol/L (22-30); CHLORIDE 93 mmol/L (98-107); GLUCOSE 163 mg/dL (75-110); POTASSIUM 5.4 mmol/L (3.6-5.0); SODIUM 137.1 mmol/L (137-145)
[2018-06-10 07:30] LABS: HEPATITIS B SURFACE AB QUAL Non Reactive (.); HEPATITS B SURFACE ANTIGEN Negative (Negative)
[2018-06-10] MEDS: ONDANSETRON HCL INJ/PF 4 MG/2 ML SDV IV PRN ×2 (07:50→13:47)
[2018-06-10] MEDS: HYDRALAZINE HCL INJ/PF 20 MG/1 ML SDV IV PRN (08:36)
[2018-06-10] MEDS: CEFEPIME 1 GM/D5W RTU 1 GM/50 ML RTUPB IV SCH (12:45)
[2018-06-10] MEDS: AMLODIPINE BESYLATE 5 MG TABLET PO SCH ×2 (12:46→21:33)
[2018-06-10] MEDS: FOLIC ACID/VITAMIN B COMP W-C CAPSULE PO SCH (12:46)
[2018-06-10] MEDS: CALCITRIOL 0.25 MCG CAPSULE PO SCH (12:46)
[2018-06-10] MEDS: GABAPENTIN 300 MG CAPSULE PO SCH ×2 (12:46→18:38)
[2018-06-10] MEDS: FERROUS SULFATE 325 MG TABLET PO SCH ×3 (12:47→18:38)
[2018-06-10] MEDS: ASPIRIN 325 MG TABLET, ENT COATED PO SCH (12:47)
[2018-06-10] MEDS: CARVEDILOL 12.5 MG TABLET PO SCH ×2 (12:47→21:33)
[2018-06-10] MEDS: HEPARIN SOD (PORCINE) 5,000 UNIT/ML 1 ML SYRINGE SUBCUT SCH ×2 (13:48→21:32)
[2018-06-10] MEDS: INSULIN LISPRO 100 UNIT/ML 3 ML VIAL SUBCUT PRN ×3 (13:51→21:35)
--- NOTE | 2018-06-10 16:04 | PDOC PROGRESS REPORT ---
Subjective Progress Note for:: 06/10/18 Subjective:: Says the chest discomfort is gone. He said he has some burning in his throat whenever he swallows. Denies any reflux symptoms. Was not sure if he was taking any stomach acid medicine, but I confirmed that he is. At about 2200 mL' s of fluid off from dialysis today. He said he is feeling a little bit lightheaded and tired since the treatment. Reason For Visit: RLL PNEUMONIA, UTI, ACUTE PAIN, HYPERVOLEMIA Physical Exam Vital Signs: Temp Pulse Resp BP Pulse Ox 97.4 F 87 16 147/97 H 92 06/10/18 03:18 06/10/18 07:00 06/10/18 03:18 06/10/18 03:18 06/10/18 03:18 Intake & Output 06/09/18 06/10/18 06/11/18 06:59 06:59 06:59 Intake Total 450 548 163 Output Total 3500 575 2200 Balance -3049 Weight 107.4 kg General appearance: PRESENT: no acute distress, cooperative, disheveled, morbidly obese Respiratory exam: PRESENT: decreased breath sounds - Right base, unlabored. ABSENT: accessory muscle use, rales, rhonchi, tachypnea, wheezes Cardiovascular exam: PRESENT: RRR, +S1, +S2. ABSENT: diastolic murmur, systolic murmur GI/Abdominal exam: PRESENT: normal bowel sounds, soft. ABSENT: ascites, distended, guarding, rebound, tenderness Extremities exam: PRESENT: full ROM, trace extremity edema Musculoskeletal exam: PRESENT: normal inspection. ABSENT: deformity Neurological exam: PRESENT: alert, awake, oriented to person, oriented to place , oriented to time Psychiatric exam: PRESENT: appropriate affect, normal mood Results Laboratory Results: 06/10/18 05:40 06/10/18 05:40 06/10/18 06/10/18 05:40 05:40 WBC 7.9 RBC 3.41 L Hgb 11.4 L Hct 33.1 L MCV 97 MCH 33.3 MCHC 34.4 RDW 14.3 H Plt Count 232 Sodium 137.1 Potassium 5.4 H Chloride 93 L Carbon Dioxide 25 Anion Gap 19 BUN 66 H Creatinine 14.20 H Est GFR ( Amer) 5 L Est GFR (Non-Af Amer) 4 L Glucose 163 H Calcium 9.4 06/08/18 06/08/18 06/08/18 05:17 05:17 05:17 Creatine Kinase 187 H CK-MB (CK-2) 6.45 H Troponin I 0.265 NT-Pro-B Natriuret Pep 37542 H 06/08/18 06/08/18 06/08/18 11:21 11:21 13:56 Creatine Kinase 185 H CK-MB (CK-2) 6.77 H Troponin I 0.370 0.315 NT-Pro-B Natriuret Pep 06/08/18 06/08/18 06/08/18 17:05 17:05 19:00 Creatine Kinase 178 H CK-MB (CK-2) 6.71 H Troponin I 0.296 0.370 NT-Pro-B Natriuret Pep 06/09/18 06/09/18 00:51 15:27 Creatine Kinase CK-MB (CK-2) Troponin I 0.442 0.374 NT-Pro-B Natriuret Pep Impressions: Chest X-Ray 06/07/18 11:58 IMPRESSION: NO ACUTE RADIOGRAPHIC FINDING IN THE CHEST. Abdomen/Pelvis CT 06/07/18 13:49 IMPRESSION: Small patchy airspace opacities in the right lower lobe. No acute findings in the abdomen. Lung Scan-VQ NM 06/09/18 00:00 IMPRESSION: Low probability for pulmonary embolus Assessment & Plan - Diagnosis (1) Non-ST elevation [place] (NSTEMI) Is this a current diagnosis for this admission?: Yes Plan: Ruled out. Heparin drip discontinued. VQ scan was low probability as well. (2) ESRD (end stage renal disease) on dialysis Is this a current diagnosis for this admission?: Yes Plan: Nephrology has been consulted for hemodialysis (3) Right lower lobe pneumonia Qualifiers: Pneumonia type: due to unspecified organism Qualified Code(s): J18.1 - Lobar pneumonia, unspecified organism Is this a current diagnosis for this admission?: Yes Plan: Currently on IV antibiotics. Cultures are pending. (4) Hyperkalemia Is this a current diagnosis for this admission?: Yes Plan: Resolved. He tends to run a little bit on the high side but he stable and at his usual range. - Time Time Spent with patient: 25-34 minutes
[2018-06-10 17:07] LABS: PHOSPHORUS 6.3 mg/dL (2.5-4.5)
[2018-06-10] MEDS ORDERED: VANCOMYCIN HCL 1,000 MG in DEXTROSE 5%-WATER 250 ML IV SCH (18:00)
--- NOTE | 2018-06-10 18:02 | PDOC PROGRESS REPORT ---
Subjective Progress Note for:: 06/10/18 Subjective:: I saw the patient during dialysis around 8:35 AM . His chest discomfort is significantly improved overnight. His VQ scan showed only low probability. His blood pressure continued to be elevated though. Patient was given his regular oral medications and hydralazine IV but his blood pressure remains elevated throughout dialysis treatment. He otherwise tolerates the dialysis without any any complications. Reason For Visit: RLL PNEUMONIA, UTI, ACUTE PAIN, HYPERVOLEMIA Physical Exam Vital Signs: Temp Pulse Resp BP Pulse Ox 97.4 F 83 16 147/97 H 92 06/10/18 03:18 06/10/18 14:00 06/10/18 03:18 06/10/18 03:18 06/10/18 03:18 Intake & Output 06/09/18 06/10/18 06/11/18 06:59 06:59 06:59 Intake Total 450 548 163 Output Total 3500 575 2200 Balance -3049 Weight 107.4 kg Exam: General appearance: PRESENT: no acute distress, cooperative, well-developed, well-nourished Head exam: PRESENT: atraumatic, normocephalic Eye exam: PRESENT: conjunctiva pink, PERRLA. ABSENT: scleral icterus Neck exam: ABSENT: JVD Respiratory exam: PRESENT: Normal breath sounds. ABSENT: crackles, rales, rhonchi, unlabored, wheezes Cardiovascular exam: PRESENT: Regular rate rhythm -+S1, +S2. ABSENT: diastolic murmur, systolic murmur GI/Abdominal exam: PRESENT: normal bowel sounds, soft. ABSENT: guarding, mass, tenderness Extremities exam: ABSENT: No edema Neurological exam: PRESENT: alert, awake, oriented to person, place and time. Skin exam: PRESENT: dry, warm, Cardiovascular exam: PRESENT: RRR, +S1, +S2 GI/Abdominal exam: PRESENT: normal bowel sounds, soft. ABSENT: tenderness Results Laboratory Results: 06/10/18 05:40 06/10/18 05:40 06/10/18 06/10/18 06/10/18 05:40 05:40 05:40 WBC 7.9 RBC 3.41 L Hgb 11.4 L Hct 33.1 L MCV 97 MCH 33.3 MCHC 34.4 RDW 14.3 H Plt Count 232 Sodium 137.1 Potassium 5.4 H Chloride 93 L Carbon Dioxide 25 Anion Gap 19 BUN 66 H Creatinine 14.20 H Est GFR ( Amer) 5 L Est GFR (Non-Af Amer) 4 L Glucose 163 H Calcium 9.4 Phosphorus 6.3 H Magnesium 2.6 H 06/08/18 06/08/18 06/08/18 05:17 05:17 05:17 Creatine Kinase 187 H CK-MB (CK-2) 6.45 H Troponin I 0.265 NT-Pro-B Natriuret Pep 20676 H 06/08/18 06/08/18 06/08/18 11:21 11:21 13:56 Creatine Kinase 185 H CK-MB (CK-2) 6.77 H Troponin I 0.370 0.315 NT-Pro-B Natriuret Pep 06/08/18 06/08/18 06/08/18 17:05 17:05 19:00 Creatine Kinase 178 H CK-MB (CK-2) 6.71 H Troponin I 0.296 0.370 NT-Pro-B Natriuret Pep 06/09/18 06/09/18 00:51 15:27 Creatine Kinase CK-MB (CK-2) Troponin I 0.442 0.374 NT-Pro-B Natriuret Pep Impressions: Chest X-Ray 06/07/18 11:58 IMPRESSION: NO ACUTE RADIOGRAPHIC FINDING IN THE CHEST. Abdomen/Pelvis CT 06/07/18 13:49 IMPRESSION: Small patchy airspace opacities in the right lower lobe. No acute findings in the abdomen. Lung Scan-VQ NM 06/09/18 00:00 IMPRESSION: Low probability for pulmonary embolus Assessment & Plan - Diagnosis (1) ESRD (end stage renal disease) on dialysis Is this a current diagnosis for this admission?: Yes Plan: We did dialysis today for 3 hours, using the patient's AV graft, with 2 potassium bath, blood flow rate of 450 mL per minute, dialysate flow rate of 800 mL per minute, ultrafiltration 2 L, systemic heparin and no Procrit. Patient was monitored toward throughout the treatment and tolerated procedure well. (2) Chest pain Qualifiers: Chest pain type: unspecified Qualified Code(s): R07.9 - Chest pain, unspecified Is this a current diagnosis for this admission?: Yes Plan: Improved today. VQ scan is only low probability for pulmonary embolism. (3) Hypertension Qualifiers: Hypertension type: essential hypertension Qualified Code(s): I10 - Essential (primary) hypertension Is this a current diagnosis for this admission?: Yes Plan: Still elevated. We will start the patient on hydralazine 25 mg every 8 hours in addition to amlodipine and carvedilol. Continue as needed IV hydralazine. (4) Non-ST elevation [place] (NSTEMI) Is this a current diagnosis for this admission?: Yes (5) Right flank pain Is this a current diagnosis for this admission?: Yes Plan: Improved. (6) Hyperphosphatemia Is this a current diagnosis for this admission?: Yes Plan: Start calcium acetate 667 mg 2 capsules with meals. - Time Time with patient: 15-25 minutes
[2018-06-10] MEDS: FAMOTIDINE INJ/PF 20 MG/2 ML SDV IV SCH (21:32)
[2018-06-10] MEDS: HYDRALAZINE HCL 25 MG TABLET PO SCH (21:33)
[2018-06-10] MEDS: ATORVASTATIN CALCIUM 80 MG TABLET PO SCH (21:33)
[2018-06-10] MEDS: HYDROXYZINE HCL 10 MG TABLET PO PRN (23:35)
[2018-06-11] MEDS: LANSOPRAZOLE 15 MG TAB.RAP.DR PO SCH (05:20)
[2018-06-11] MEDS: HYDRALAZINE HCL 25 MG TABLET PO SCH ×3 (05:20→21:22)
[2018-06-11] MEDS: HEPARIN SOD (PORCINE) 5,000 UNIT/ML 1 ML SYRINGE SUBCUT SCH ×3 (05:20→21:23)
[2018-06-11] MEDS: HYDRALAZINE HCL INJ/PF 20 MG/1 ML SDV IV PRN ×2 (08:49→17:09)
[2018-06-11] MEDS: CALCIUM ACETATE 667 MG CAPSULE PO SCH ×3 (08:49→17:09)
[2018-06-11] MEDS: FOLIC ACID/VITAMIN B COMP W-C CAPSULE PO SCH (10:07)
[2018-06-11] MEDS: CALCITRIOL 0.25 MCG CAPSULE PO SCH (10:07)
[2018-06-11] MEDS: AMLODIPINE BESYLATE 5 MG TABLET PO SCH ×2 (10:07→21:21)
[2018-06-11] MEDS: GABAPENTIN 300 MG CAPSULE PO SCH ×2 (10:07→17:09)
[2018-06-11] MEDS: CEFEPIME 1 GM/D5W RTU 1 GM/50 ML RTUPB IV SCH (10:07)
[2018-06-11] MEDS: FERROUS SULFATE 325 MG TABLET PO SCH ×3 (10:08→17:09)
[2018-06-11] MEDS: CARVEDILOL 12.5 MG TABLET PO SCH ×2 (10:08→21:22)
[2018-06-11] MEDS: ASPIRIN 325 MG TABLET, ENT COATED PO SCH (10:08)
[2018-06-11] MEDS: INSULIN LISPRO 100 UNIT/ML 3 ML VIAL SUBCUT PRN ×2 (12:49→21:21)
--- NOTE | 2018-06-11 15:16 | PDOC PROGRESS REPORT ---
Subjective Progress Note for:: 06/11/18 Subjective:: No adverse events overnight. No new complaints. He had hydralazine added to his blood pressure regimen last night. This morning before taking his medicines his pressure was up but he seemed to do better yesterday evening. He got up to walk independently in the hallway yesterday evening a couple times. He was pretty sleepy this morning. Reason For Visit: RLL PNEUMONIA, UTI, ACUTE PAIN, HYPERVOLEMIA Physical Exam Vital Signs: Temp Pulse Resp BP Pulse Ox 97.6 F 96 20 210/98 H 100 06/11/18 11:12 06/11/18 11:12 06/11/18 11:12 06/11/18 11:12 06/11/18 11:12 Intake & Output 06/10/18 06/11/18 06/12/18 06:59 06:59 06:59 Intake Total 548 1050 50 Output Total 575 2275 Balance -27 -1225 50 Weight 111 kg General appearance: PRESENT: no acute distress, cooperative, disheveled, morbidly obese Respiratory exam: PRESENT: Clear to auscultation bilaterally, unlabored. ABSENT : accessory muscle use, rales, rhonchi, tachypnea, wheezes Cardiovascular exam: PRESENT: RRR, +S1, +S2. ABSENT: diastolic murmur, systolic murmur GI/Abdominal exam: PRESENT: normal bowel sounds, soft. ABSENT: ascites, distended, guarding, rebound, tenderness Extremities exam: PRESENT: full ROM, trace extremity edema Musculoskeletal exam: PRESENT: normal inspection. ABSENT: deformity Neurological exam: PRESENT: alert, awake, oriented to person, oriented to place , oriented to time Psychiatric exam: PRESENT: appropriate affect, normal mood Results Laboratory Results: 06/10/18 05:40 06/10/18 05:40 06/10/18 05:40 Phosphorus 6.3 H Magnesium 2.6 H 06/08/18 06/08/18 06/08/18 05:17 05:17 05:17 Creatine Kinase 187 H CK-MB (CK-2) 6.45 H Troponin I 0.265 NT-Pro-B Natriuret Pep 97672 H 06/08/18 06/08/18 06/08/18 11:21 11:21 13:56 Creatine Kinase 185 H CK-MB (CK-2) 6.77 H Troponin I 0.370 0.315 NT-Pro-B Natriuret Pep 06/08/18 06/08/18 06/08/18 17:05 17:05 19:00 Creatine Kinase 178 H CK-MB (CK-2) 6.71 H Troponin I 0.296 0.370 NT-Pro-B Natriuret Pep 06/09/18 06/09/18 00:51 15:27 Creatine Kinase CK-MB (CK-2) Troponin I 0.442 0.374 NT-Pro-B Natriuret Pep Impressions: Chest X-Ray 06/07/18 11:58 IMPRESSION: NO ACUTE RADIOGRAPHIC FINDING IN THE CHEST. Abdomen/Pelvis CT 06/07/18 13:49 IMPRESSION: Small patchy airspace opacities in the right lower lobe. No acute findings in the abdomen. Lung Scan-VQ NM 06/09/18 00:00 IMPRESSION: Low probability for pulmonary embolus Assessment & Plan - Diagnosis (1) Non-ST elevation [place] (NSTEMI) Is this a current diagnosis for this admission?: Yes Plan: Ruled out. Heparin drip discontinued. VQ scan was low probability as well. (2) ESRD (end stage renal disease) on dialysis Is this a current diagnosis for this admission?: Yes Plan: Nephrology has been consulted for hemodialysis. He was also started on sevelamer for hyperphosphatemia. (3) Right lower lobe pneumonia Qualifiers: Pneumonia type: due to unspecified organism Qualified Code(s): J18.1 - Lobar pneumonia, unspecified organism Is this a current diagnosis for this admission?: Yes Plan: Currently on IV antibiotics. Cultures are pending. Negative thus far. We will look to transition him to an oral antibiotic. (4) Hyperkalemia Is this a current diagnosis for this admission?: Yes Plan: Resolved. He tends to run a little bit on the high side but he stable and at his usual range. - Time Time Spent with patient: 25-34 minutes
[2018-06-11] MEDS: ATORVASTATIN CALCIUM 80 MG TABLET PO SCH (21:22)
[2018-06-11] MEDS: HYDROXYZINE HCL 10 MG TABLET PO PRN (21:22)
[2018-06-11] MEDS: FAMOTIDINE INJ/PF 20 MG/2 ML SDV IV SCH (21:22)
[2018-06-12] MEDS ORDERED: NORMAL SALINE 1000 ML 1,000 ML IV PRN (05:00)
[2018-06-12 05:24] LABS: ABSOLUTE BASOPHILS # (AUTO) 0.1 10^3/uL (0.0-0.2); ABSOLUTE EOSINOPHILS # (AUTO) 0.6 10^3/uL (0.0-0.6); ABSOLUTE LYMPHOCYTES (AUTO) 1.7 10^3/uL (0.5-4.7); ABSOLUTE MONOCYTES (AUTO) 0.9 10^3/uL (0.1-1.4); ABSOLUTE NEUT (AUTO) 4.9 10^3/uL (1.7-8.2); BASOPHILS % (AUTO) 0.9 % (0-2); EOSINOPHILS % (AUTO) 7.8 % (0-6); HEMATOCRIT 35.1 % (37.9-51.0); HEMOGLOBIN 11.9 g/dL (13.5-17.0); LYMPHOCYTES % (AUTO) 20.7 % (13-45); MEAN CORPUSCULAR HEMOGLOBIN 33.3 pg (27.0-33.4); MEAN CORPUSCULAR HGB CONC 33.9 g/dL (32.0-36.0); MEAN CORPUSCULAR VOLUME 98 fl (80-97); MONOCYTES % (AUTO) 10.9 % (3-13); PLATELET COUNT 225 10^3/uL (150-450); RED BLOOD COUNT 3.58 10^6/uL (4.35-5.55); RED CELL DISTRIBUTION WIDTH 14.1 % (11.5-14.0); SEGMENTED NEUTROPHILS % (AUTO) 59.7 % (42-78); TOTAL CELLS COUNTED % (AUTO) 100 %; WHITE BLOOD COUNT 8.2 10^3/uL (4.0-10.5)
[2018-06-12] MEDS: HEPARIN SOD (PORCINE) 5,000 UNIT/ML 1 ML SYRINGE SUBCUT SCH (05:27)
[2018-06-12] MEDS: LANSOPRAZOLE 15 MG TAB.RAP.DR PO SCH (05:27)
[2018-06-12] MEDS: HYDRALAZINE HCL 25 MG TABLET PO SCH (05:28)
[2018-06-12 05:48] LABS: ANION GAP 16 (5-19); BLOOD UREA NITROGEN 49 mg/dL (7-20); CARBON DIOXIDE 27 mmol/L (22-30); CHLORIDE 97 mmol/L (98-107); GLUCOSE 168 mg/dL (75-110); POTASSIUM 5.4 mmol/L (3.6-5.0); SODIUM 139.5 mmol/L (137-145)
[2018-06-12] MEDS: INSULIN LISPRO 100 UNIT/ML 3 ML VIAL SUBCUT PRN (06:24)
[2018-06-12 08:48] LABS: VANCOMYCIN,TROUGH 34.1 ug/mL (5.0-20.0)
[2018-06-12] MEDS: FOLIC ACID/VITAMIN B COMP W-C CAPSULE PO SCH (09:16)
[2018-06-12] MEDS: FERROUS SULFATE 325 MG TABLET PO SCH (09:16)
[2018-06-12] MEDS: CALCIUM ACETATE 667 MG CAPSULE PO SCH ×2 (09:16→12:15)
[2018-06-12] MEDS: CALCITRIOL 0.25 MCG CAPSULE PO SCH (09:17)
[2018-06-12] MEDS: MORPHINE SULFATE 10 MG/ML INJ IV PRN (09:17)
[2018-06-12] MEDS: AMLODIPINE BESYLATE 5 MG TABLET PO SCH (09:17)
[2018-06-12] MEDS: GABAPENTIN 300 MG CAPSULE PO SCH (09:17)
[2018-06-12] MEDS: CARVEDILOL 12.5 MG TABLET PO SCH (09:17)
[2018-06-12] MEDS: ASPIRIN 325 MG TABLET, ENT COATED PO SCH (09:17)
[2018-06-12] MEDS: ONDANSETRON HCL INJ/PF 4 MG/2 ML SDV IV PRN (09:18)
[2018-06-12] MEDS: CEFEPIME 1 GM/D5W RTU 1 GM/50 ML RTUPB IV SCH (12:15)
[2018-06-12] MEDS: ONDANSETRON 4 MG TAB.RAPDIS PO PRN (12:16)
[2018-06-12 13:17] VITALS: BP 143/88
--- NOTE | 2018-06-12 15:45 | PDOC DISCHARGE SUMMARY ---
General - Admit/Disc Date/PCP Admission Date/Primary Care Provider: 06/07/18 16:47 MOLLY NOEL Discharge Date: 06/12/18 - Discharge Diagnosis (1) Non-ST elevation SD (NSTEMI) Is this a current diagnosis for this admission?: Yes Summary: Suspected that if anything he had a type II event from demand ischemia from his illness. The chest pain he was experiencing was most likely pleuritic chest pain from his pneumonia and not from ischemia. He is stress test was negative. He was seen in consultation by cardiology. (2) ESRD (end stage renal disease) on dialysis Is this a current diagnosis for this admission?: Yes Summary: Nephrology was consulted. 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 (3) Right lower lobe pneumonia Is this a current diagnosis for this admission?: Yes Summary: He was then treated empirically with broad-spectrum antibiotics. No culture results were positive. He was sent home on amoxicillin and doxycycline to finish a course of treatment. (4) Hyperkalemia Is this a current diagnosis for this admission?: Yes Summary: This may have been spurious, because it was after he had received dialysis and then another level checked later in the day and it was more in line with what he typically runs, which is just over 5. He did get a dose of Kayexalate after that level was drawn but he vomited fairly soon after he swallowed it so I do not think it really had much of the time to have an effect on his potassium levels. - Additional Information Resuscitation Status: Full Code Discharge Diet: As Tolerated, Other (Comments) Discharge Activity: Activity As Tolerated, Balance Activity w/Rest Prescriptions: Amlodipine Besylate [Norvasc 5 mg Tablet] 5 mg PO Q12 #60 tablet Amoxicillin 1 tab PO DAILY #5 tab Doxycycline Hyclate 100 mg PO BID #10 capsule Hydralazine HCl [Apresoline 25 mg Tablet] 25 mg PO Q8 #90 tablet Home Medications: Carvedilol 12.5 mg PO Q12 01/17/18 Ferric Citrate [Auryxia] 630 mg PO AC 01/17/18 Gabapentin 300 mg PO Q12 01/17/18 Calcitriol 2 tab PO DAILY 06/07/18 Duloxetine HCl 30 mg PO QHS 06/07/18 Omeprazole 20 mg PO DAILY 06/07/18 Amlodipine Besylate [Norvasc 5 mg Tablet] 5 mg PO Q12 #60 tablet 06/12/18 Amoxicillin 1 tab PO DAILY #5 tab 06/12/18 Doxycycline Hyclate 100 mg PO BID #10 capsule 06/12/18 Hydralazine HCl [Apresoline 25 mg Tablet] 25 mg PO Q8 #90 tablet 06/12/18 History of Present Illness History of Present Illness: PEPE SOLIZ is a 37 year old male with type 1 diabetes, end-stage kidney disease recently accepted for transplant, who uses hemodialysis at home. He was seen in the ER 2 weeks ago and diagnosed with urinary tract infection and has just completed a dose of Keflex. He states that a day or 2 after he finished the Keflex he started to have right flank and right lateral chest pain. The discomfort has become worse and worse and then today it was so bad that he came into the ER. Yesterday he had a slight fever. No shortness of breath or cough. No sputum production. Is admitted to the hospitalist for evaluation for source of pain, patient likely has right lung pneumonia and urinary tract infection. Hospital Course Hospital Course: He received hemodialysis as recommended by nephrology who handled the prescribing of the dialysis. He was treated with broad-spectrum antibiotics for pneumonia empirically. His creatinine was 17 and when he was complaining of chest pain they check her troponin and of course it was elevated. It trended up a little bit more but his chest pain actually really was not typical. However because of his complicated medical history he was treated empirically with heparin drip, aspirin, and statin medications until coronary ischemia and PE could be ruled out, which they were. He was seen in consultation by cardiology and this was their assessment as well. He was then taken off the heparin drip. He improved slowly over the course of several days. At time of discharge it was felt that he was safe to be transition to oral antibiotics. Reassuring and he was discharged today in good condition. He was also given prescriptions for 2 new medications for his blood pressure, which was substantially elevated through most of the hospitalization until we got him on the right couple of medications. Physical Exam Vital Signs: Temp Pulse Resp BP Pulse Ox 97.8 F 84 16 143/88 H 99 06/12/18 13:13 06/12/18 13:13 06/12/18 13:13 06/12/18 13:13 06/12/18 13:13 Intake & Output 06/11/18 06/12/18 06/13/18 06:59 06:59 06:59 Intake Total 1050 572 355 Output Total 2275 0 Balance -1225 572 355 Weight 111 kg 113.4 kg General appearance: PRESENT: no acute distress, cooperative, disheveled, morbidly obese Respiratory exam: PRESENT: Clear to auscultation bilaterally, unlabored. ABSENT : accessory muscle use, rales, rhonchi, tachypnea, wheezes Cardiovascular exam: PRESENT: RRR, +S1, +S2. ABSENT: diastolic murmur, systolic murmur GI/Abdominal exam: PRESENT: normal bowel sounds, soft. ABSENT: ascites, distended, guarding, rebound, tenderness Extremities exam: PRESENT: full ROM, trace extremity edema Musculoskeletal exam: PRESENT: normal inspection. ABSENT: deformity Neurological exam: PRESENT: alert, awake, oriented to person, oriented to place , oriented to time Psychiatric exam: PRESENT: appropriate affect, normal mood Results Laboratory Results: 06/12/18 05:04 06/12/18 05:04 06/12/18 06/12/18 05:04 05:04 WBC 8.2 RBC 3.58 L Hgb 11.9 L Hct 35.1 L MCV 98 H MCH 33.3 MCHC 33.9 RDW 14.1 H Plt Count 225 Seg Neutrophils % 59.7 Lymphocytes % 20.7 Monocytes % 10.9 Eosinophils % 7.8 H Basophils % 0.9 Absolute Neutrophils 4.9 Absolute Lymphocytes 1.7 Absolute Monocytes 0.9 Absolute Eosinophils 0.6 Absolute Basophils 0.1 Sodium 139.5 Potassium 5.4 H Chloride 97 L Carbon Dioxide 27 Anion Gap 16 BUN 49 H Creatinine 13.62 H Est GFR ( Amer) 5 L Est GFR (Non-Af Amer) 4 L Glucose 168 H Calcium 10.0 06/08/18 06/08/18 06/08/18 05:17 05:17 05:17 Creatine Kinase 187 H CK-MB (CK-2) 6.45 H Troponin I 0.265 NT-Pro-B Natriuret Pep 94453 H 06/08/18 06/08/18 06/08/18 11:21 11:21 13:56 Creatine Kinase 185 H CK-MB (CK-2) 6.77 H Troponin I 0.370 0.315 NT-Pro-B Natriuret Pep 06/08/18 06/08/18 06/08/18 17:05 17:05 19:00 Creatine Kinase 178 H CK-MB (CK-2) 6.71 H Troponin I 0.296 0.370 NT-Pro-B Natriuret Pep 06/09/18 06/09/18 00:51 15:27 Creatine Kinase CK-MB (CK-2) Troponin I 0.442 0.374 NT-Pro-B Natriuret Pep Impressions: Chest X-Ray 06/07/18 11:58 IMPRESSION: NO ACUTE RADIOGRAPHIC FINDING IN THE CHEST. Abdomen/Pelvis CT 06/07/18 13:49 IMPRESSION: Small patchy airspace opacities in the right lower lobe. No acute findings in the abdomen. Lung Scan-VQ NM 06/09/18 00:00 IMPRESSION: Low probability for pulmonary embolus Qualifiers - * PATIENT BEING DISCHARGED WITH ANY OF THE FOLLOWING DIAGNOSIS: No
[2018-06-12] MEDS ORDERED: VANCOMYCIN HCL 500 MG in DEXTROSE 5%-WATER 100 ML IV SCH (18:00)
== END 2018-06-12 14:33 | disposition home or self-care (01) | DRG 193 ==
LOC: ER 11:23 → EH 16:47 → 4S 17:36 → 3S 20:15
PROVIDERS: ADMIT Internal Medicine; ATTEND Internal Medicine
PROC: 5A1D70Z Performance of Urinary Filtration, Intermittent, Less than 6 Hours Per Day (ICD-10-PCS; principal; 2018-06-08)
PROC: 5A1D70Z Performance of Urinary Filtration, Intermittent, Less than 6 Hours Per Day (ICD-10-PCS; 2018-06-10)
DX: J18.9 Pneumonia, unspecified organism (principal); N18.6 End stage renal disease; N30.00 Acute cystitis without hematuria; I13.0 Hypertensive heart and chronic kidney disease with heart failure and stage 1 through stage 4 chronic kidney disease, or unspecified chronic kidney disease; Z76.82 Awaiting organ transplant status; I50.9 Heart failure, unspecified; E10.22 Type 1 diabetes mellitus with diabetic chronic kidney disease; E10.649 Type 1 diabetes mellitus with hypoglycemia without coma; Z96.41 Presence of insulin pump (external) (internal); E87.5 Hyperkalemia; E66.9 Obesity, unspecified; R74.8 Abnormal levels of other serum enzymes; R07.81 Pleurodynia; Z99.2 Dependence on renal dialysis; Z79.4 Long term (current) use of insulin; Z79.899 Other long term (current) drug therapy; Z88.6 Allergy status to analgesic agent
CPT/HCPCS: 36415; 71046; 74176; 78582; 80048; 80053; 80061; 80202; 81001; 82550; 82553; 82962; 83036; 83605; 83735; 83880; 84100; 84132; 84443; 84484; 85025; 85027; 85610; 85730; 86317; 86706; 87040; 87086; 87340; 90686; 93005; 93010; 93306; 99285; A9540; A9567; J0360; J0692; J0696; J1644; J1815; J2060; J2270; J2405; J3370; J3490; J7060; Q9969; S0028; S0119

== ENCOUNTER 2019-01-10 19:23 | Emergency (ER) | payer MEDICARE, MEDICAID ==
--- NOTE | 2019-01-10 19:39 | ER Document Report ---
ED Medical Screen (RME) - General Chief Complaint: Testicular Pain Stated Complaint: RIGHT TESTICULAR PAIN Time Seen by Provider: 01/10/19 19:33 Primary Care Provider: PAULY OAKES PA [Primary Care Provider] - Follow up as needed Mode of Arrival: Ambulatory Information source: Patient Notes: Patient presents emergency department with complaints of testicular pain right hurting worse than left. Patient reports symptoms started Friday increased pain difficult to walk now. Denies trauma. Reports feels like someone punched him in the testicles. Denies swelling but reports very painful to touch. Denies penile discharge reports he has not been sexually active for over a year. Denies other symptoms such as fever vomiting diarrhea although the pain is making a little bit nauseous this morning. I have greeted and performed a rapid initial assessment of this patient. A comprehensive ED assessment and evaluation of the patient, analysis of test results and completion of the medical decision making process will be conducted by additional ED providers. Dictation of this chart was performed using voice recognition software; therefore, there may be some unintended grammatical errors. TRAVEL OUTSIDE OF THE [place] IN LAST 30 DAYS: No - Related Data Allergies/Adverse Reactions: hydromorphone [From Dilaudid] Adverse Reaction (Verified 06/07/18 11:28) Past Medical History - Past Medical History Cardiac Medical History: Reports: Hx Congestive Heart Failure Pulmonary Medical History: Reports: Hx Pneumonia Neurological Medical History: Denies: Hx Seizures Endocrine Medical History: Reports: Hx Diabetes Mellitus Type 1 Renal/ Medical History: Reports: Hx End Stage Renal Disease. Denies: Hx Peritoneal Dialysis GI Medical History: Denies: Hx Hepatitis Musculoskeltal Medical History: Denies Hx Fibromyalgia Skin Medical History: Denies Hx Eczema, Denies Hx Psoriasis Psychiatric Medical History: Denies: Hx Depression Infectious Medical History: Denies: Hx Hepatitis Past Surgical History: Reports: Hx Cardiac Catheterization, Hx Cardiac Surgery - pacemaker, Hx Internal Defibrillator, Hx Thyroid Surgery - Partial thyroidectomy, Hx Vascular Surgery - fistula Physical Exam - Vital signs Vitals: Temp Pulse Resp BP Pulse Ox 97.8 F 88 24 H 170/85 H 97 01/10/19 19:34 01/10/19 19:34 01/10/19 19:34 01/10/19 19:34 01/10/19 19:34 Course - Vital Signs Vital signs: Temp Pulse Resp BP Pulse Ox 97.8 F 88 24 H 170/85 H 97 01/10/19 19:34 01/10/19 19:34 01/10/19 19:34 01/10/19 19:34 01/10/19 19:34 Doctor's Discharge - Discharge Referrals: PAULY OAKES PA [Primary Care Provider] - Follow up as needed
--- NOTE | 2019-01-10 22:45 | RADIOLOGY REPORT (SQ) ---
US SCROTUM HISTORY: Right testicular pain. COMPARISON: None. TECHNIQUE: Ospina-scale, color Doppler, and spectral Doppler ultrasound images of the scrotum were obtained. FINDINGS: RIGHT: Normal size and echogenicity of the testis, measuring 4.9 x 1.9 x 2.8 cm. Positive color Doppler flow is present. No focal intratesticular mass is seen. The epididymis also has normal size and echogenicity. LEFT: Normal size and echogenicity of the testis, measuring 4.7 x 2.2 x 3.4 cm. Positive color Doppler flow is present. No focal intratesticular mass is seen. The epididymis also has normal size and echogenicity. OTHER: No hydroceles. No varicoceles. No scrotal hernias. IMPRESSION: No evidence of testicular torsion.
[2019-01-11] MEDS ORDERED: KETOROLAC TROMETHAMINE 60 MG/2 ML SDV IM ONE (00:32)
[2019-01-11] MEDS ORDERED: HYDROCODONE/ACETAMINOPHEN 5-325 MG (6 TAB/ER DISP) PO PRN (00:32)
[2019-01-11] MEDS ORDERED: CIPROFLOXACIN HCL 500 MG TABLET PO ONE (00:35)
--- NOTE | 2019-01-11 00:36 | ER Document Report ---
ED General - General Chief Complaint: Testicular Pain Stated Complaint: RIGHT TESTICULAR PAIN Time Seen by Provider: 01/10/19 19:33 Primary Care Provider: PAULY OAKES PA [Primary Care Provider] - Follow up as needed Mode of Arrival: Ambulatory Notes: Patient is a 38-year-old male past medical history of chronic kidney disease with dialysis dependence, does not make any urine, presents complaining of 1 week of progressively worsening right testicular pain. States that it is a throbbing, constant, severe pain to the right testicle. Nothing seems to improve or worsen the pain. Denies any history of similar symptoms in the past. Has not seen his primary care physician regarding today's concerns. Has not noted any swelling, discoloration to the right testicle. No penile discharge. Sexually active with his spouse. TRAVEL OUTSIDE OF THE [place] IN LAST 30 DAYS: No - Related Data Allergies/Adverse Reactions: hydromorphone [From Dilaudid] Adverse Reaction (Verified 06/07/18 11:28) Past Medical History - General Information source: Patient - Social History Smoking Status: Never Smoker Chew tobacco use (# tins/day): No Frequency of alcohol use: None Drug Abuse: None Lives with: Spouse/Significant other Family History: Hypertension Patient has suicidal ideation: No Patient has homicidal ideation: No - Past Medical History Cardiac Medical History: Reports: Hx Congestive Heart Failure Pulmonary Medical History: Reports: Hx Pneumonia Neurological Medical History: Denies: Hx Seizures Endocrine Medical History: Reports: Hx Diabetes Mellitus Type 1 Renal/ Medical History: Reports: Hx End Stage Renal Disease. Denies: Hx Peritoneal Dialysis GI Medical History: Denies: Hx Hepatitis Musculoskeletal Medical History: Denies Hx Fibromyalgia Skin Medical History: Denies Hx Eczema, Denies Hx Psoriasis Psychiatric Medical History: Denies: Hx Depression Infectious Medical History: Denies: Hx Hepatitis Past Surgical History: Reports: Hx Cardiac Catheterization, Hx Cardiac Surgery - pacemaker, Hx Internal Defibrillator, Hx Thyroid Surgery - Partial thyroidectomy, Hx Vascular Surgery - fistula - Immunizations Hx Pneumococcal Vaccination: 03/25/18 Review of Systems - Review of Systems Notes: Constitutional: Negative for fever. HENT: Negative for sore throat. Eyes: Negative for visual changes. Cardiovascular: Negative for chest pain. Respiratory: Negative for shortness of breath. Gastrointestinal: Negative for abdominal pain, vomiting or diarrhea. Genitourinary: Negative for dysuria. Positive for right testicular pain Musculoskeletal: Negative for back pain. Skin: Negative for rash. Neurological: Negative for headaches, weakness or numbness. 10 point ROS negative except as marked above and in HPI. Physical Exam - Vital signs Vitals: Temp Pulse Resp BP Pulse Ox 97.8 F 88 24 H 170/85 H 97 01/10/19 19:34 01/10/19 19:34 01/10/19 19:34 01/10/19 19:34 01/10/19 19:34 Interpretation: Hypertensive Notes: PHYSICAL EXAMINATION: GENERAL: Appears moderately uncomfortable but in no acute distress HEAD: Atraumatic, normocephalic. EYES: Pupils equal round and reactive to light, extraocular movements intact, sclera anicteric, conjunctiva are normal. ENT: nares patent, oropharynx clear without exudates. Moist mucous membranes. NECK: Normal range of motion, supple without lymphadenopathy LUNGS: Breath sounds clear to auscultation bilaterally and equal. No wheezes rales or rhonchi. HEART: Regular rate and rhythm without murmurs ABDOMEN: Soft, nontender, normoactive bowel sounds. No guarding, no rebound. No masses appreciated. : No obvious swelling or deformity to either testicle. Pain on palpation of the epididymis and the testicle itself on the right. Positive cremasteric reflex bilaterally. No abnormal testicular lie. No scrotal lesions or erythema. No urethral discharge. EXTREMITIES: Normal range of motion, no pitting or edema. No cyanosis. NEUROLOGICAL: No focal neurological deficits. Moves all extremities spontaneously and on command. PSYCH: Normal mood, normal affect. SKIN: Warm, Dry, normal turgor, no rashes or lesions noted. Course - Re-evaluation Re-evalutation: 01/11/19 00:33 Patient presents with approximately 1 week of progressively worsening right distal pain worse in the last 48 hours. On exam there is normal testicular lie, positive cremasteric reflex. Mild tenderness of the testicle as well as the epididymis. Testicular ultrasound without evidence of torsion. Patient does not make urine prohibiting testing of infection. Patient has no abdominal tenderness, no back tenderness. Vitals within normal limits. Exact etiology of patient's pain is uncertain but could be related to epididymitis or orchitis although difficult to ascertain based absence of urine. Will empirically treat with ciprofloxacin and recommend follow-up with urology within the next 2 to 3 days. At this time will discharge with return precautions and follow-up recommendations. Verbal discharge instructions given a the bedside and opportunity for questions given. Medication warnings reviewed. Patient is in agreement with this plan and has verbalized understanding of return precautions and the need for primary care follow-up in the next 24-72 hours. - Vital Signs Vital signs: Temp Pulse Resp BP Pulse Ox 98 F 86 20 158/74 H 98 01/11/19 01:06 01/11/19 01:06 01/11/19 01:06 01/11/19 01:06 01/11/19 01:06 - Diagnostic Test Radiology reviewed: Reports reviewed Discharge - Discharge Clinical Impression: Testicular pain, right Condition: Good Disposition: HOME, SELF-CARE Additional Instructions: The exact cause of your testicular pain is uncertain. It could be related to infection although it is difficult to ascertain as you do not make urine. Your ultrasound does not demonstrate any evidence of a twisted testicle. I have included an ultrasound report with your discharge paperwork. Please contact a urologist for follow-up within the next 24 to 48 hours. You have been sent home with a small number of Axtell tablets that she can use as needed for severe pain. Return if you have worsening pain, fever greater than 100.4 F, persistent vomiting, or any other symptoms that are worrisome to you. Prescriptions: Ciprofloxacin HCl [Cipro 500 mg Tablet] 500 mg PO BID #20 tablet Referrals: PAULY OAKES PA [Primary Care Provider] - Follow up as needed
[2019-01-11 01:07] VITALS: BP 158/74
== END 2019-01-11 01:07 | disposition home or self-care (01) ==
LOC: ER 19:23
DX: N50.811 Right testicular pain (principal); I12.0 Hypertensive chronic kidney disease with stage 5 chronic kidney disease or end stage renal disease; E10.22 Type 1 diabetes mellitus with diabetic chronic kidney disease; N18.6 End stage renal disease; Z99.2 Dependence on renal dialysis; Z79.4 Long term (current) use of insulin
CPT/HCPCS: 99284; 96372; 76870; 93976; A9270 ×2; J1885

== ENCOUNTER → 2019-11-09 | Outpatient (CLI) | payer MEDICARE, MEDICAID ==
[2019-11-09 10:30] LABS: APPEARANCE,URINE CLEAR; BILIRUBIN,URINE NEGATIVE (NEGATIVE); COLOR,URINE YELLOW; GLUCOSE, URINE NEGATIVE (NEGATIVE); KETONES,URINE NEGATIVE (NEGATIVE); LEUKOCYTE ESTERASE,URINE NEGATIVE (NEGATIVE); NITRITE,URINE NEGATIVE (NEGATIVE); PROTEIN,URINE NEGATIVE (NEGATIVE); UROBILINOGEN,URINE NEGATIVE mg/dL (<2.0)
[2019-11-09 10:34] LABS: ABSOLUTE EOSINOPHILS # (AUTO) 0.1 10^3/uL (0.0-0.6); ABSOLUTE LYMPHOCYTES (AUTO) 0.4 10^3/uL (0.5-4.7); ABSOLUTE MONOCYTES (AUTO) 0.1 10^3/uL (0.1-1.4); ABSOLUTE NEUT (AUTO) 0.4 10^3/uL (1.7-8.2); BASOPHILS % (AUTO) 3.2 % (0-2); EOSINOPHILS % (AUTO) 6.9 % (0-6); HEMATOCRIT 40.9 % (37.9-51.0); HEMOGLOBIN 13.8 g/dL (13.5-17.0); LYMPHOCYTES % (AUTO) 44.5 % (13-45); MEAN CORPUSCULAR HEMOGLOBIN 31.8 pg (27.0-33.4); MEAN CORPUSCULAR HGB CONC 33.8 g/dL (32.0-36.0); MEAN CORPUSCULAR VOLUME 94 fl (80-97); MONOCYTES % (AUTO) 8.4 % (3-13); PLATELET COUNT 177 10^3/uL (150-450); RED BLOOD COUNT 4.35 10^6/uL (4.35-5.55); RED CELL DISTRIBUTION WIDTH 14.7 % (11.5-14.0); TOTAL CELLS COUNTED % (AUTO) 100 %
[2019-11-09 10:54] LABS: UR PRO/CREAT RATIO RESULT 0.1 mg/mg (0.0-0.2); URINE CREATININE 181.8 mg/dL (24-392); URINE PROTEIN 14.7 mg/dL (<12)
[2019-11-09 11:03] LABS: AMYLASE 75 U/L (30-110); ANION GAP 10 (5-19); BLOOD UREA NITROGEN 18 mg/dL (7-20); CARBON DIOXIDE 22 mmol/L (22-30); CHLORIDE 106 mmol/L (98-107); GLUCOSE 82 mg/dL (75-110); POTASSIUM 4.1 mmol/L (3.6-5.0)
[2019-11-09 11:22] LABS: ANISOCYTOSIS SLIGHT; OVALOCYTES SLIGHT; PLATELET COMMENT ADEQUATE; TEAR DROP CELLS SLIGHT
[2019-11-10 11:17] LABS: PATH REVIEW PATHOLOGIST REVIEWED
== END ==
LOC: OD 09:24
PROVIDERS: ATTEND Surgery
DX: N18.9 Chronic kidney disease, unspecified (principal); Z94.0 Kidney transplant status
CPT/HCPCS: 36415; 80048; 80197; 81001; 82150; 82570; 83690; 83735; 84100; 84156; 85025; 87496; 87799

== ENCOUNTER → 2019-11-18 | Outpatient (CLI) | payer MEDICARE, MEDICAID ==
[2019-11-18 09:26] LABS: HEMATOCRIT 41.9 % (37.9-51.0); HEMOGLOBIN 14.3 g/dL (13.5-17.0); MEAN CORPUSCULAR HEMOGLOBIN 32.3 pg (27.0-33.4); MEAN CORPUSCULAR HGB CONC 34.2 g/dL (32.0-36.0); MEAN CORPUSCULAR VOLUME 95 fl (80-97); PLATELET COUNT 146 10^3/uL (150-450); RED BLOOD COUNT 4.43 10^6/uL (4.35-5.55); RED CELL DISTRIBUTION WIDTH 15.6 % (11.5-14.0); WHITE BLOOD COUNT 1.8 10^3/uL (4.0-10.5)
[2019-11-18 09:43] LABS: AMYLASE 66 U/L (30-110); ANION GAP 11 (5-19); BLOOD UREA NITROGEN 18 mg/dL (7-20); CALCIUM 9.2 mg/dL (8.4-10.2); CARBON DIOXIDE 23 mmol/L (22-30); CHLORIDE 106 mmol/L (98-107); GLUCOSE 91 mg/dL (75-110); POTASSIUM 4.1 mmol/L (3.6-5.0)
[2019-11-18 10:02] LABS: ABSOLUTE LYMPHOCYTES# (MANUAL) 0.6 10^3/uL (0.5-4.7); ABSOLUTE MONOCYTES # (MANUAL) 0.2 10^3/uL (0.1-1.4); BAND NEUTROPHILS % (MANUAL) 6 % (3-5); BASOPHILS % (MANUAL) 0 % (0-2); EOSINOPHILS % (MANUAL) 0 % (0-6); LYMPHOCYTES % (MANUAL) 24 % (13-45); MONOCYTES % (MANUAL) 10 % (3-13); SEGMENTED NEUTROPHILS % (MAN) 48 % (42-78); TOTAL CELLS COUNTED 50
[2019-11-18 10:03] LABS: ANISOCYTOSIS SLIGHT; OVALOCYTES SLIGHT; PLATELET COMMENT DECREASED; TEAR DROP CELLS SLIGHT
== END ==
LOC: OD 08:35
PROVIDERS: ATTEND Surgery
DX: N18.9 Chronic kidney disease, unspecified (principal); Z94.0 Kidney transplant status
CPT/HCPCS: 36415; 80048; 80197; 82150; 83690; 85025

== ENCOUNTER → 2019-12-15 | Outpatient (CLI) | payer MEDICARE, MEDICAID ==
[2019-12-15 09:39] LABS: APPEARANCE,URINE CLEAR; BILIRUBIN,URINE NEGATIVE (NEGATIVE); COLOR,URINE YELLOW; GLUCOSE, URINE NEGATIVE (NEGATIVE); HEMATOCRIT 43.4 % (37.9-51.0); HEMOGLOBIN 14.8 g/dL (13.5-17.0); KETONES,URINE NEGATIVE (NEGATIVE); LEUKOCYTE ESTERASE,URINE NEGATIVE (NEGATIVE); MEAN CORPUSCULAR VOLUME 94 fl (80-97); NITRITE,URINE NEGATIVE (NEGATIVE); PROTEIN,URINE 30 mg/dL (NEGATIVE); RED BLOOD COUNT 4.61 10^6/uL (4.35-5.55); RED CELL DISTRIBUTION WIDTH 14.9 % (11.5-14.0); URINE SPECIFIC GRAVITY 1.021; UROBILINOGEN,URINE NEGATIVE mg/dL (<2.0)
[2019-12-15 09:57] LABS: AMYLASE 96 U/L (30-110); ANION GAP 10 (5-19); BLOOD UREA NITROGEN 30 mg/dL (7-20); CALCIUM 8.9 mg/dL (8.4-10.2); CARBON DIOXIDE 22 mmol/L (22-30); CHLORIDE 107 mmol/L (98-107); GLUCOSE 89 mg/dL (75-110); PHOSPHORUS 3.1 mg/dL (2.5-4.5); POTASSIUM 4.2 mmol/L (3.6-5.0)
[2019-12-15 10:16] LABS: WHITE BLOOD COUNT 1.9 10^3/uL (4.0-10.5)
[2019-12-15 10:23] LABS: PLATELET COUNT 95 10^3/uL (150-450)
[2019-12-15 10:33] LABS: ABSOLUTE LYMPHOCYTES# (MANUAL) 0.5 10^3/uL (0.5-4.7); ABSOLUTE MONOCYTES # (MANUAL) 0.5 10^3/uL (0.1-1.4); BAND NEUTROPHILS % (MANUAL) 6 % (3-5); BASOPHILS % (MANUAL) 0 % (0-2); EOSINOPHILS % (MANUAL) 12 % (0-6); LYMPHOCYTES % (MANUAL) 18 % (13-45); MONOCYTES % (MANUAL) 28 % (3-13); SEGMENTED NEUTROPHILS % (MAN) 30 % (42-78); TOTAL CELLS COUNTED 50
[2019-12-15 10:35] LABS: ANISOCYTOSIS SLIGHT; PLATELET COMMENT DECREASED
[2019-12-16 11:57] LABS: PATH REVIEW PATHOLOGIST REVIEWED
== END ==
LOC: OD 08:38
PROVIDERS: ATTEND Surgery
DX: N18.9 Chronic kidney disease, unspecified (principal); Z94.0 Kidney transplant status
CPT/HCPCS: 36415; 80048; 80197; 81001; 82150; 83690; 83735; 84100; 85025

== ENCOUNTER → 2020-01-03 | Outpatient (CLI) | payer MEDICARE, MEDICAID ==
[2020-01-03 08:56] LABS: ABSOLUTE EOSINOPHILS # (AUTO) 0.1 10^3/uL (0.0-0.6); ABSOLUTE LYMPHOCYTES (AUTO) 1.3 10^3/uL (0.5-4.7); ABSOLUTE MONOCYTES (AUTO) 0.5 10^3/uL (0.1-1.4); ABSOLUTE NEUT (AUTO) 3.3 10^3/uL (1.7-8.2); BASOPHILS % (AUTO) 0.6 % (0-2); EOSINOPHILS % (AUTO) 1.3 % (0-6); HEMATOCRIT 46.5 % (37.9-51.0); LYMPHOCYTES % (AUTO) 25.6 % (13-45); MEAN CORPUSCULAR HEMOGLOBIN 32.3 pg (27.0-33.4); MEAN CORPUSCULAR HGB CONC 34.4 g/dL (32.0-36.0); MEAN CORPUSCULAR VOLUME 94 fl (80-97); MONOCYTES % (AUTO) 10.1 % (3-13); PLATELET COUNT 120 10^3/uL (150-450); RED BLOOD COUNT 4.95 10^6/uL (4.35-5.55); RED CELL DISTRIBUTION WIDTH 14.4 % (11.5-14.0); SEGMENTED NEUTROPHILS % (AUTO) 62.4 % (42-78); TOTAL CELLS COUNTED % (AUTO) 100 %; WHITE BLOOD COUNT 5.2 10^3/uL (4.0-10.5)
[2020-01-03 09:01] LABS: APPEARANCE,URINE CLEAR; BILIRUBIN,URINE NEGATIVE (NEGATIVE); COLOR,URINE YELLOW; GLUCOSE, URINE NEGATIVE (NEGATIVE); KETONES,URINE NEGATIVE (NEGATIVE); LEUKOCYTE ESTERASE,URINE NEGATIVE (NEGATIVE); NITRITE,URINE NEGATIVE (NEGATIVE); PROTEIN,URINE NEGATIVE (NEGATIVE); URINE SPECIFIC GRAVITY 1.019
[2020-01-03 09:14] LABS: AMYLASE 99 U/L (30-110); ANION GAP 11 (5-19); BLOOD UREA NITROGEN 28 mg/dL (7-20); CARBON DIOXIDE 23 mmol/L (22-30); CHLORIDE 104 mmol/L (98-107); GLUCOSE 101 mg/dL (75-110); PHOSPHORUS 3.6 mg/dL (2.5-4.5); POTASSIUM 3.5 mmol/L (3.6-5.0)
== END ==
LOC: OD 08:01
PROVIDERS: ATTEND Surgery
DX: N18.9 Chronic kidney disease, unspecified (principal); Z94.0 Kidney transplant status
CPT/HCPCS: 36415; 80048; 80197; 81001; 82150; 83690; 83735; 84100; 85025

== ENCOUNTER → 2020-01-11 | Outpatient (CLI) | payer MEDICARE, MEDICAID ==
[2020-01-11 09:15] LABS: ABSOLUTE BASOPHILS # (AUTO) 0.1 10^3/uL (0.0-0.2); ABSOLUTE EOSINOPHILS # (AUTO) 0.1 10^3/uL (0.0-0.6); ABSOLUTE LYMPHOCYTES (AUTO) 1.4 10^3/uL (0.5-4.7); ABSOLUTE MONOCYTES (AUTO) 0.4 10^3/uL (0.1-1.4); ABSOLUTE NEUT (AUTO) 3.3 10^3/uL (1.7-8.2); BASOPHILS % (AUTO) 1.2 % (0-2); EOSINOPHILS % (AUTO) 2.2 % (0-6); HEMATOCRIT 45.7 % (37.9-51.0); HEMOGLOBIN 15.6 g/dL (13.5-17.0); MEAN CORPUSCULAR HEMOGLOBIN 31.8 pg (27.0-33.4); MEAN CORPUSCULAR HGB CONC 34.1 g/dL (32.0-36.0); MEAN CORPUSCULAR VOLUME 93 fl (80-97); PLATELET COUNT 123 10^3/uL (150-450); RED BLOOD COUNT 4.91 10^6/uL (4.35-5.55); RED CELL DISTRIBUTION WIDTH 13.9 % (11.5-14.0); SEGMENTED NEUTROPHILS % (AUTO) 62.6 % (42-78); TOTAL CELLS COUNTED % (AUTO) 100 %; WHITE BLOOD COUNT 5.3 10^3/uL (4.0-10.5)
[2020-01-11 09:16] LABS: APPEARANCE,URINE CLEAR; BILIRUBIN,URINE NEGATIVE (NEGATIVE); COLOR,URINE YELLOW; GLUCOSE, URINE NEGATIVE (NEGATIVE); KETONES,URINE NEGATIVE (NEGATIVE); LEUKOCYTE ESTERASE,URINE NEGATIVE (NEGATIVE); NITRITE,URINE NEGATIVE (NEGATIVE); PROTEIN,URINE NEGATIVE (NEGATIVE); URINE SPECIFIC GRAVITY 1.017
[2020-01-11 09:36] LABS: AMYLASE 124 U/L (30-110); ANION GAP 9 (5-19); BLOOD UREA NITROGEN 25 mg/dL (7-20); CALCIUM 9.4 mg/dL (8.4-10.2); CARBON DIOXIDE 25 mmol/L (22-30); CHLORIDE 106 mmol/L (98-107); GLUCOSE 91 mg/dL (75-110); POTASSIUM 3.8 mmol/L (3.6-5.0)
== END ==
LOC: OD 08:18
PROVIDERS: ATTEND Surgery
DX: N18.9 Chronic kidney disease, unspecified (principal); Z94.0 Kidney transplant status
CPT/HCPCS: 36415; 80048; 80197; 81001; 82150; 83690; 83735; 84100; 85025; 87496; 87799

== ENCOUNTER → 2020-01-26 | Outpatient (CLI) | payer MEDICARE, MEDICAID ==
[2020-01-26 10:30] LABS: ABSOLUTE EOSINOPHILS # (AUTO) 0.1 10^3/uL (0.0-0.6); ABSOLUTE LYMPHOCYTES (AUTO) 1.1 10^3/uL (0.5-4.7); ABSOLUTE MONOCYTES (AUTO) 0.5 10^3/uL (0.1-1.4); ABSOLUTE NEUT (AUTO) 2.1 10^3/uL (1.7-8.2); BASOPHILS % (AUTO) 0.5 % (0-2); EOSINOPHILS % (AUTO) 2.1 % (0-6); HEMATOCRIT 47.1 % (37.9-51.0); HEMOGLOBIN 15.9 g/dL (13.5-17.0); LYMPHOCYTES % (AUTO) 29.2 % (13-45); MEAN CORPUSCULAR HEMOGLOBIN 31.8 pg (27.0-33.4); MEAN CORPUSCULAR HGB CONC 33.7 g/dL (32.0-36.0); MEAN CORPUSCULAR VOLUME 94 fl (80-97); MONOCYTES % (AUTO) 12.7 % (3-13); PLATELET COUNT 122 10^3/uL (150-450); RED CELL DISTRIBUTION WIDTH 13.6 % (11.5-14.0); SEGMENTED NEUTROPHILS % (AUTO) 55.5 % (42-78); TOTAL CELLS COUNTED % (AUTO) 100 %; WHITE BLOOD COUNT 3.8 10^3/uL (4.0-10.5)
[2020-01-26 10:36] LABS: APPEARANCE,URINE CLEAR; BILIRUBIN,URINE NEGATIVE (NEGATIVE); COLOR,URINE YELLOW; GLUCOSE, URINE NEGATIVE (NEGATIVE); KETONES,URINE NEGATIVE (NEGATIVE); LEUKOCYTE ESTERASE,URINE NEGATIVE (NEGATIVE); NITRITE,URINE NEGATIVE (NEGATIVE); PROTEIN,URINE NEGATIVE (NEGATIVE); URINE SPECIFIC GRAVITY 1.021; UROBILINOGEN,URINE NEGATIVE mg/dL (<2.0)
[2020-01-26 10:57] LABS: AMYLASE 91 U/L (30-110); ANION GAP 10 (5-19); BLOOD UREA NITROGEN 19 mg/dL (7-20); CALCIUM 9.3 mg/dL (8.4-10.2); CARBON DIOXIDE 24 mmol/L (22-30); CHLORIDE 106 mmol/L (98-107); GLUCOSE 120 mg/dL (75-110); PHOSPHORUS 3.2 mg/dL (2.5-4.5); POTASSIUM 3.8 mmol/L (3.6-5.0)
== END ==
LOC: OD 09:11
PROVIDERS: ATTEND Surgery
DX: N18.9 Chronic kidney disease, unspecified (principal); Z94.0 Kidney transplant status
CPT/HCPCS: 36415; 80048; 80197; 81001; 82150; 83690; 83735; 84100; 85025; 87496

== ENCOUNTER → 2020-02-08 | Outpatient (CLI) | payer MEDICARE, MEDICAID ==
[2020-02-08 10:08] LABS: ABSOLUTE EOSINOPHILS # (AUTO) 0.2 10^3/uL (0.0-0.6); ABSOLUTE LYMPHOCYTES (AUTO) 0.8 10^3/uL (0.5-4.7); ABSOLUTE MONOCYTES (AUTO) 0.5 10^3/uL (0.1-1.4); ABSOLUTE NEUT (AUTO) 1.8 10^3/uL (1.7-8.2); BASOPHILS % (AUTO) 0.5 % (0-2); EOSINOPHILS % (AUTO) 6.9 % (0-6); HEMATOCRIT 44.6 % (37.9-51.0); LYMPHOCYTES % (AUTO) 24.9 % (13-45); MEAN CORPUSCULAR HEMOGLOBIN 31.3 pg (27.0-33.4); MEAN CORPUSCULAR HGB CONC 33.6 g/dL (32.0-36.0); MEAN CORPUSCULAR VOLUME 93 fl (80-97); MONOCYTES % (AUTO) 13.8 % (3-13); PLATELET COUNT 126 10^3/uL (150-450); RED BLOOD COUNT 4.78 10^6/uL (4.35-5.55); RED CELL DISTRIBUTION WIDTH 13.1 % (11.5-14.0); SEGMENTED NEUTROPHILS % (AUTO) 53.9 % (42-78); TOTAL CELLS COUNTED % (AUTO) 100 %; WHITE BLOOD COUNT 3.4 10^3/uL (4.0-10.5)
[2020-02-08 10:11] LABS: APPEARANCE,URINE CLEAR; BILIRUBIN,URINE NEGATIVE (NEGATIVE); COLOR,URINE YELLOW; GLUCOSE, URINE NEGATIVE (NEGATIVE); KETONES,URINE NEGATIVE (NEGATIVE); LEUKOCYTE ESTERASE,URINE NEGATIVE (NEGATIVE); NITRITE,URINE NEGATIVE (NEGATIVE); PROTEIN,URINE 30 mg/dL (NEGATIVE); URINE SPECIFIC GRAVITY 1.024; UROBILINOGEN,URINE NEGATIVE mg/dL (<2.0)
[2020-02-08 10:29] LABS: AMYLASE 101 U/L (30-110); ANION GAP 9 (5-19); BLOOD UREA NITROGEN 21 mg/dL (7-20); CALCIUM 9.2 mg/dL (8.4-10.2); CARBON DIOXIDE 24 mmol/L (22-30); CHLORIDE 108 mmol/L (98-107); GLUCOSE 90 mg/dL (75-110); PHOSPHORUS 3.3 mg/dL (2.5-4.5)
== END ==
LOC: OD 09:04
PROVIDERS: ATTEND Surgery
DX: N18.9 Chronic kidney disease, unspecified (principal); Z94.0 Kidney transplant status
CPT/HCPCS: 36415; 80048; 80197; 81001; 82150; 83690; 83735; 84100; 85025; 87496; 87799

== ENCOUNTER → 2020-02-23 | Outpatient (CLI) | payer MEDICARE, MEDICAID ==
[2020-02-23 10:24] LABS: APPEARANCE,URINE CLEAR; BILIRUBIN,URINE NEGATIVE (NEGATIVE); COLOR,URINE YELLOW; GLUCOSE, URINE NEGATIVE (NEGATIVE); KETONES,URINE NEGATIVE (NEGATIVE); LEUKOCYTE ESTERASE,URINE NEGATIVE (NEGATIVE); NITRITE,URINE NEGATIVE (NEGATIVE); PROTEIN,URINE NEGATIVE (NEGATIVE); URINE SPECIFIC GRAVITY 1.021; UROBILINOGEN,URINE NEGATIVE mg/dL (<2.0)
[2020-02-23 10:39] LABS: AMYLASE 122 U/L (30-110); ANION GAP 8 (5-19); BLOOD UREA NITROGEN 28 mg/dL (7-20); CALCIUM 9.5 mg/dL (8.4-10.2); CARBON DIOXIDE 23 mmol/L (22-30); CHLORIDE 109 mmol/L (98-107); GLUCOSE 84 mg/dL (75-110); PHOSPHORUS 3.4 mg/dL (2.5-4.5); POTASSIUM 3.8 mmol/L (3.6-5.0)
[2020-02-23 10:45] LABS: ABSOLUTE EOSINOPHILS # (AUTO) 0.1 10^3/uL (0.0-0.6); ABSOLUTE MONOCYTES (AUTO) 0.5 10^3/uL (0.1-1.4); ABSOLUTE NEUT (AUTO) 2.5 10^3/uL (1.7-8.2); BASOPHILS % (AUTO) 0.6 % (0-2); EOSINOPHILS % (AUTO) 2.5 % (0-6); HEMATOCRIT 44.8 % (37.9-51.0); HEMOGLOBIN 15.2 g/dL (13.5-17.0); LYMPHOCYTES % (AUTO) 23.6 % (13-45); MEAN CORPUSCULAR HEMOGLOBIN 31.7 pg (27.0-33.4); MEAN CORPUSCULAR HGB CONC 33.9 g/dL (32.0-36.0); MEAN CORPUSCULAR VOLUME 93 fl (80-97); MONOCYTES % (AUTO) 12.4 % (3-13); PLATELET COUNT 123 10^3/uL (150-450); RED CELL DISTRIBUTION WIDTH 13.2 % (11.5-14.0); SEGMENTED NEUTROPHILS % (AUTO) 60.9 % (42-78); TOTAL CELLS COUNTED % (AUTO) 100 %; WHITE BLOOD COUNT 4.1 10^3/uL (4.0-10.5)
== END ==
LOC: OD 09:32
PROVIDERS: ATTEND Surgery
DX: N18.9 Chronic kidney disease, unspecified (principal); Z94.0 Kidney transplant status
CPT/HCPCS: 36415; 80048; 80197; 81001; 82150; 83690; 83735; 84100; 85025

== ENCOUNTER → 2020-03-20 | Outpatient (CLI) | payer MEDICARE, MEDICAID ==
[2020-03-20 10:31] LABS: ABSOLUTE EOSINOPHILS # (AUTO) 0.1 10^3/uL (0.0-0.6); ABSOLUTE LYMPHOCYTES (AUTO) 0.9 10^3/uL (0.5-4.7); ABSOLUTE MONOCYTES (AUTO) 0.5 10^3/uL (0.1-1.4); ABSOLUTE NEUT (AUTO) 2.3 10^3/uL (1.7-8.2); BASOPHILS % (AUTO) 0.6 % (0-2); EOSINOPHILS % (AUTO) 2.8 % (0-6); HEMATOCRIT 45.6 % (37.9-51.0); HEMOGLOBIN 15.5 g/dL (13.5-17.0); LYMPHOCYTES % (AUTO) 22.8 % (13-45); MEAN CORPUSCULAR HEMOGLOBIN 31.5 pg (27.0-33.4); MEAN CORPUSCULAR VOLUME 93 fl (80-97); MONOCYTES % (AUTO) 13.4 % (3-13); PLATELET COUNT 147 10^3/uL (150-450); RED BLOOD COUNT 4.92 10^6/uL (4.35-5.55); RED CELL DISTRIBUTION WIDTH 13.4 % (11.5-14.0); SEGMENTED NEUTROPHILS % (AUTO) 60.4 % (42-78); TOTAL CELLS COUNTED % (AUTO) 100 %; WHITE BLOOD COUNT 3.8 10^3/uL (4.0-10.5)
[2020-03-20 10:39] LABS: APPEARANCE,URINE CLEAR; BILIRUBIN,URINE NEGATIVE (NEGATIVE); COLOR,URINE YELLOW; GLUCOSE, URINE NEGATIVE (NEGATIVE); KETONES,URINE NEGATIVE (NEGATIVE); LEUKOCYTE ESTERASE,URINE NEGATIVE (NEGATIVE); NITRITE,URINE NEGATIVE (NEGATIVE); PROTEIN,URINE NEGATIVE (NEGATIVE); URINE SPECIFIC GRAVITY 1.018; UROBILINOGEN,URINE NEGATIVE mg/dL (<2.0)
[2020-03-20 10:53] LABS: AMYLASE 115 U/L (30-110); ANION GAP 8 (5-19); BLOOD UREA NITROGEN 25 mg/dL (7-20); CALCIUM 9.5 mg/dL (8.4-10.2); CARBON DIOXIDE 25 mmol/L (22-30); CHLORIDE 106 mmol/L (98-107); GLUCOSE 89 mg/dL (75-110); PHOSPHORUS 3.2 mg/dL (2.5-4.5)
== END ==
LOC: OD 09:22
PROVIDERS: ATTEND Surgery
DX: N18.9 Chronic kidney disease, unspecified (principal); Z94.0 Kidney transplant status
CPT/HCPCS: 36415; 80048; 80197; 81001; 82150; 83690; 83735; 84100; 85025

== ENCOUNTER → 2020-05-16 | Outpatient (CLI) | payer MEDICARE, MEDICAID ==
[2020-05-16 10:39] LABS: ABSOLUTE EOSINOPHILS # (AUTO) 0.1 10^3/uL (0.0-0.6); ABSOLUTE MONOCYTES (AUTO) 0.4 10^3/uL (0.1-1.4); BASOPHILS % (AUTO) 0.8 % (0-2); EOSINOPHILS % (AUTO) 3.5 % (0-6); HEMATOCRIT 47.9 % (37.9-51.0); HEMOGLOBIN 16.4 g/dL (13.5-17.0); LYMPHOCYTES % (AUTO) 26.7 % (13-45); MEAN CORPUSCULAR HEMOGLOBIN 31.4 pg (27.0-33.4); MEAN CORPUSCULAR HGB CONC 34.2 g/dL (32.0-36.0); MEAN CORPUSCULAR VOLUME 92 fl (80-97); MONOCYTES % (AUTO) 11.9 % (3-13); PLATELET COUNT 145 10^3/uL (150-450); RED BLOOD COUNT 5.22 10^6/uL (4.35-5.55); RED CELL DISTRIBUTION WIDTH 13.3 % (11.5-14.0); SEGMENTED NEUTROPHILS % (AUTO) 57.1 % (42-78); TOTAL CELLS COUNTED % (AUTO) 100 %; WHITE BLOOD COUNT 3.6 10^3/uL (4.0-10.5)
[2020-05-16 10:40] LABS: APPEARANCE,URINE CLEAR; BILIRUBIN,URINE NEGATIVE (NEGATIVE); COLOR,URINE YELLOW; GLUCOSE, URINE NEGATIVE (NEGATIVE); KETONES,URINE NEGATIVE (NEGATIVE); LEUKOCYTE ESTERASE,URINE NEGATIVE (NEGATIVE); NITRITE,URINE NEGATIVE (NEGATIVE); PROTEIN,URINE NEGATIVE (NEGATIVE); URINE SPECIFIC GRAVITY 1.017; UROBILINOGEN,URINE NEGATIVE mg/dL (<2.0)
[2020-05-16 11:09] LABS: ALBUMIN 4.8 g/dL (3.5-5.0); ALKALINE PHOSPHATASE 72 U/L (38-126); AMYLASE 108 U/L (30-110); ANION GAP 10 (5-19); ASPARTATE AMINO TRANSFERASE 37 U/L (17-59); BILIRUBIN,DIRECT 0.4 mg/dL (0.0-0.4); BILIRUBIN,TOTAL 1.1 mg/dL (0.2-1.3); BLOOD UREA NITROGEN 22 mg/dL (7-20); CALCIUM 9.8 mg/dL (8.4-10.2); CARBON DIOXIDE 24 mmol/L (22-30); CHLORIDE 107 mmol/L (98-107); GLUCOSE 81 mg/dL (75-110); PHOSPHORUS 3.9 mg/dL (2.5-4.5); POTASSIUM 3.8 mmol/L (3.6-5.0); TOTAL PROTEIN 8.5 g/dL (6.3-8.2)
[2020-05-16 11:18] LABS: UR PRO/CREAT RATIO RESULT 0.1 mg/mg (0.0-0.2); URINE CREATININE 119.7 mg/dL (24-392); URINE PROTEIN 16.6 mg/dL (<12)
== END ==
LOC: OD 09:00
PROVIDERS: ATTEND Surgery
DX: N18.9 Chronic kidney disease, unspecified (principal); Z94.0 Kidney transplant status
CPT/HCPCS: 36415; 80053; 80197; 81001; 82150; 82570; 83690; 83735; 84100; 84156; 85025

== ENCOUNTER → 2020-08-02 | Outpatient (CLI) | payer MEDICARE, MEDICAID ==
[2020-08-02 10:44] LABS: ABSOLUTE EOSINOPHILS # (AUTO) 0.1 10^3/uL (0.0-0.6); ABSOLUTE LYMPHOCYTES (AUTO) 1.1 10^3/uL (0.5-4.7); ABSOLUTE MONOCYTES (AUTO) 0.5 10^3/uL (0.1-1.4); ABSOLUTE NEUT (AUTO) 2.6 10^3/uL (1.7-8.2); EOSINOPHILS % (AUTO) 2.3 % (0-6); HEMATOCRIT 46.1 % (37.9-51.0); HEMOGLOBIN 15.1 g/dL (13.5-17.0); LYMPHOCYTES % (AUTO) 25.2 % (13-45); MEAN CORPUSCULAR HEMOGLOBIN 30.3 pg (27.0-33.4); MEAN CORPUSCULAR HGB CONC 32.9 g/dL (32.0-36.0); MEAN CORPUSCULAR VOLUME 92 fl (80-97); MONOCYTES % (AUTO) 12.2 % (3-13); PLATELET COUNT 139 10^3/uL (150-450); RED CELL DISTRIBUTION WIDTH 13.6 % (11.5-14.0); SEGMENTED NEUTROPHILS % (AUTO) 59.3 % (42-78); TOTAL CELLS COUNTED % (AUTO) 100 %; WHITE BLOOD COUNT 4.3 10^3/uL (4.0-10.5)
[2020-08-02 11:05] LABS: APPEARANCE,URINE CLEAR; BILIRUBIN,URINE NEGATIVE (NEGATIVE); COLOR,URINE LIGHT YELLOW; GLUCOSE, URINE NEGATIVE (NEGATIVE)
[2020-08-02 11:06] LABS: ADD MANUAL MICROSCOPIC YES; KETONES,URINE NEGATIVE (NEGATIVE); LEUKOCYTE ESTERASE,URINE NEGATIVE (NEGATIVE); NITRITE,URINE NEGATIVE (NEGATIVE); PROTEIN,URINE NEGATIVE (NEGATIVE); URINE SPECIFIC GRAVITY 1.016; UROBILINOGEN,URINE NEGATIVE mg/dL (<2.0); WBC,URINE RARE /HPF
[2020-08-02 11:07] LABS: BACTERIA,URINE TRACE /HPF
[2020-08-02 11:12] LABS: AMYLASE 94 U/L (30-110); ANION GAP 10 (5-19); BLOOD UREA NITROGEN 13 mg/dL (7-20); CALCIUM 9.5 mg/dL (8.4-10.2); CARBON DIOXIDE 23 mmol/L (22-30); CHLORIDE 105 mmol/L (98-107); GLUCOSE 96 mg/dL (75-110); PHOSPHORUS 3.3 mg/dL (2.5-4.5); POTASSIUM 4.6 mmol/L (3.6-5.0)
== END ==
LOC: OD 09:25
PROVIDERS: ATTEND Surgery
DX: N18.9 Chronic kidney disease, unspecified (principal); Z94.0 Kidney transplant status
CPT/HCPCS: 36415; 80048; 80197; 81001; 82150; 83690; 83735; 84100; 85025

== ENCOUNTER → 2020-09-20 | Outpatient (CLI) | payer MEDICARE, MEDICAID ==
[2020-09-20 10:33] LABS: ABSOLUTE EOSINOPHILS # (AUTO) 0.1 10^3/uL (0.0-0.6); ABSOLUTE LYMPHOCYTES (AUTO) 1.1 10^3/uL (0.5-4.7); ABSOLUTE MONOCYTES (AUTO) 0.5 10^3/uL (0.1-1.4); ABSOLUTE NEUT (AUTO) 2.7 10^3/uL (1.7-8.2); BASOPHILS % (AUTO) 0.6 % (0-2); HEMATOCRIT 45.3 % (37.9-51.0); HEMOGLOBIN 14.9 g/dL (13.5-17.0); LYMPHOCYTES % (AUTO) 24.3 % (13-45); MEAN CORPUSCULAR HEMOGLOBIN 30.2 pg (27.0-33.4); MEAN CORPUSCULAR HGB CONC 32.8 g/dL (32.0-36.0); MEAN CORPUSCULAR VOLUME 92 fl (80-97); MONOCYTES % (AUTO) 11.4 % (3-13); PLATELET COUNT 125 10^3/uL (150-450); RED BLOOD COUNT 4.93 10^6/uL (4.35-5.55); RED CELL DISTRIBUTION WIDTH 14.1 % (11.5-14.0); SEGMENTED NEUTROPHILS % (AUTO) 61.7 % (42-78); TOTAL CELLS COUNTED % (AUTO) 100 %; WHITE BLOOD COUNT 4.5 10^3/uL (4.0-10.5)
[2020-09-20 10:42] LABS: APPEARANCE,URINE CLEAR; BILIRUBIN,URINE NEGATIVE (NEGATIVE); COLOR,URINE YELLOW; GLUCOSE, URINE NEGATIVE (NEGATIVE); KETONES,URINE NEGATIVE (NEGATIVE); LEUKOCYTE ESTERASE,URINE NEGATIVE (NEGATIVE); NITRITE,URINE NEGATIVE (NEGATIVE); PROTEIN,URINE NEGATIVE (NEGATIVE); URINE SPECIFIC GRAVITY 1.024
[2020-09-20 10:57] LABS: ALBUMIN 4.4 g/dL (3.5-5.0); ALKALINE PHOSPHATASE 62 U/L (38-126); AMYLASE 89 U/L (30-110); ANION GAP 8 (5-19); ASPARTATE AMINO TRANSFERASE 29 U/L (17-59); BILIRUBIN,DIRECT 0.3 mg/dL (0.0-0.4); BILIRUBIN,TOTAL 1.3 mg/dL (0.2-1.3); BLOOD UREA NITROGEN 17 mg/dL (7-20); CALCIUM 9.2 mg/dL (8.4-10.2); CARBON DIOXIDE 25 mmol/L (22-30); CHLORIDE 107 mmol/L (98-107); GLUCOSE 85 mg/dL (75-110); POTASSIUM 4.2 mmol/L (3.6-5.0); TOTAL PROTEIN 7.9 g/dL (6.3-8.2)
== END ==
LOC: OD 09:05
PROVIDERS: ATTEND Surgery
DX: Z48.816 Encounter for surgical aftercare following surgery on the genitourinary system (principal); Z94.0 Kidney transplant status
CPT/HCPCS: 36415; 80053; 81001; 82150; 83690; 83735; 84100; 85025